=== PATIENT | female | born 1930 | race Caucasian/White ===

== ENCOUNTER 2016-11-03 11:16 | Inpatient (IN) | payer BC ==
[2016-11-03] MEDS ORDERED: ASPIRIN 81 MG CHEWABLE TABLETS PO ONE (11:22)
--- NOTE | 2016-11-03 11:22 | PDOC ---
History of Present Illness <Radhika Barton - Last Filed: 11/03/16 12:38> - General History Source: Patient Exam Limitations: No Limitations <Rossy Medley - Last Filed: 11/03/16 14:21> - General Stated Complaint: Shortness of Breath Time Seen by Provider: 11/03/16 11:21 - History of Present Illness Initial Comments: 11/03/16 12:28 The patient is a 86 year old female with significant past medical history of a- fib (on Xarelto), hypertension, hyperlipidemia, hypothyroidism, and pneumonia who presents to the emergency department from home with shortness of breath for the last 2 months. The patient states that her SOB has been gradually worsening over the last week. The patient has SOB when she gets out of bed. She reports intermittent hemoptysis with associated chills. The patient last saw her doctors in the fall but has scheduled appointments for next week. She states she has lost ~7lbs within the last month but she denies any decreased appetite. She denies any chest pain or palpitations. She denies any sick contacts but states she recently traveled to [place] to visit her children. The patient denies any recent illness or fevers. PMD: Dr. Wing Pulmonary: Dr. Crowell Cardiology: Dr. Werner (Radhika Barton) Past History <Radhika Barton - Last Filed: 11/03/16 12:38> - Past Medical History Anemia: No Asthma: No Cancer: No Cardiac Disorders: Yes (AFIB) CVA: No COPD: No (hx of pneumonia 10/2015) CHF: No Dementia: No Diabetes: No GI Disorders: No Disorders: No HTN: Yes Hypercholesterolemia: Yes Liver Disease: No Seizures: No Thyroid Disease: Yes (HYPO) - Surgical History Abdominal Surgery: No Appendectomy: No Cardiac Surgery: No Cholecystectomy: Yes Lung Surgery: No Neurologic Surgery: No Orthopedic Surgery: Yes (BUNIONECTOMY) - Psycho/Social/Smoking Cessation Hx Anxiety: No Suicidal Ideation: No Smoking Status: No Smoking History: Never smoked Have you smoked in the past 12 months: No Number of Cigarettes Smoked Daily: 0 Hx Alcohol Use: No Drug/Substance Use Hx: No Substance Use Type: None Hx Substance Use Treatment: No <Rossy Medley - Last Filed: 11/03/16 14:21> - Past Medical History Allergies/Adverse Reactions: Allergies Allergy/AdvReac Type Severity Reaction Status Date / Time No Known Allergies Allergy Verified 11/03/16 11:41 Home Medications: Ambulatory Orders Levothyroxine [Synthroid -] 50 mcg PO DAILY 12/02/14 Metoprolol Tartrate [Lopressor -] 25 mg PO BID 12/02/14 Rivaroxaban [Xarelto] 1 each PO DAILY 12/02/14 Prednisone 10 mg PO DAILY 04/08/16 Cardiac Specific PMH - Complaint Specific PMHX Pacemaker: No <Rossy Medley - Last Filed: 11/03/16 14:21> Review of Systems - Review of Systems Able to Perform ROS?: Yes <Radhika Barton - Last Filed: 11/03/16 12:38> <Rossy Medley - Last Filed: 11/03/16 14:21> - Review of Systems Comments:: 11/03/16 12:28 GENERAL/CONSTITUTIONAL: +Chills, +loss of appetite. No: fever, weakness. HEAD, EYES, EARS, NOSE AND THROAT: No: change in vision, ear pain, discharge, sore throat, throat swelling. CARDIOVASCULAR: No: chest pain, lightheadedness, palpitations, syncope RESPIRATORY: +SOB, +cough, +hemoptysis. No: wheezing, stridor. GASTROINTESTINAL: No: nausea, vomiting, abdominal cramping, diarrhea, rectal bleeding, constipation. GENITOURINARY: No: dysuria, hematuria, frequency, urgency, flank pain. MUSCULOSKELETAL: No: back pain, neck pain, joint pain, muscle swelling or pain SKIN AND BREASTS: No: lesions, pallor, rash or easy bruising. NEUROLOGIC: No: headache, vertigo, paresthesias, weakness ENDOCRINE: No: unexplained weight gain or loss HEMATOLOGIC/LYMPHATIC: No: anemia, easy bleeding, swelling nodes (Radhika Barton) *Physical Exam <Radhika Barton - Last Filed: 11/03/16 12:38> <Rossy Medley - Last Filed: 11/03/16 14:21> - Vital Signs Last Vital Signs Temp Pulse Resp BP Pulse Ox 100.4 F H 96 H 26 H 108/70 95 11/03/16 12:55 11/03/16 14:05 11/03/16 14:05 11/03/16 14:05 11/03/16 14:05 - Physical Exam Comments: 11/03/16 12:29 GENERAL: The patient is in no acute distress. HEAD: Normal with no signs of trauma. EYES: PERRLA, EOMI, sclera anicteric, conjunctiva clear. ENT: Ears normal, nares patent, oropharynx clear without exudates. Moist mucous membranes. NECK: Normal range of motion, supple without lymphadenopathy, JVD, or masses. LUNGS: +Coarse breath sounds with crackles in the bilateral bases. No wheezing. HEART: +Tachycardic and irregular, normal S1 and S2 without murmur, rub or gallop. ABDOMEN: Soft, nontender, normoactive bowel sounds. No guarding, no rebound. EXTREMITIES: Normal range of motion, no edema. No clubbing or cyanosis. No erythema, or tenderness. NEUROLOGICAL: Cranial nerves II through XII grossly intact. Normal speech. No focal neurological deficits. MUSCULOSKELETAL: Back non-tender to palpation, no CVA tenderness SKIN: Warm, Dry, normal turgor, no rashes or lesions noted. (Radhika Barton) Heart Score/ECG Review <Radhika Barton - Last Filed: 11/03/16 12:38> #1 ECG reviewed & interpreted by me at: 12:36 <Rossy Medley - Last Filed: 11/03/16 14:21> #1 11/03/16 12:36 Twelve-lead EKG was performed and reviewed by me. Afib rte of 122bpm. The axis is normal. The intervals are normal - QRS:82ms, QTc:433ms There are no ST elevations or depressions. T waves flattening/inversion II,III, aVF (Rossy Medley) ED Treatment Course - LABORATORY CBC & Chemistry Diagram: 11/03/16 12:09 11/03/16 12:09 <Radhika Barton - Last Filed: 11/03/16 12:38> - LABORATORY CBC & Chemistry Diagram: 11/03/16 12:09 11/03/16 12:09 <Rossy Medley - Last Filed: 11/03/16 14:21> - ADDITIONAL ORDERS Additional order review: Laboratory Results 11/03/16 11/03/16 11/03/16 13:30 12:09 12:09 INR Puncture Site ABG pH ABG pCO2 at Pt Temp ABG pO2 at Pt Temp ABG HCO3 ABG O2 Sat (Measured) ABG O2 Content ABG Base Excess Richy Test O2 Delivery Device Oxygen Flow Rate PEEP Sodium 135 L Potassium 4.0 Chloride 100 Carbon Dioxide 26 Anion Gap 9 BUN 16 Creatinine 0.9 D Creat Clearance w eGFR 59.51 Random Glucose 127 H Lactic Acid 1.272 Calcium 8.5 Magnesium 2.0 Total Bilirubin 0.8 D AST 21 ALT 20 D Alkaline Phosphatase 55 Creatine Kinase 39 Troponin I < 0.02 B-Natriuretic Peptide 1484.48 H Total Protein 6.4 Albumin 3.0 L 11/03/16 11/03/16 12:09 11:45 INR 1.57 H Puncture Site Right radial ABG pH 7.48 H ABG pCO2 at Pt Temp 30.9 L ABG pO2 at Pt Temp 69.7 ABG HCO3 22.8 ABG O2 Sat (Measured) 94.6 ABG O2 Content 19.6 ABG Base Excess 0.6 Richy Test Positive O2 Delivery Device N/c Oxygen Flow Rate 4 lpm PEEP 0.0 Sodium Potassium Chloride Carbon Dioxide Anion Gap BUN Creatinine Creat Clearance w eGFR Random Glucose Lactic Acid Calcium Magnesium Total Bilirubin AST ALT Alkaline Phosphatase Creatine Kinase Troponin I B-Natriuretic Peptide Total Protein Albumin 11/03/16 12:09 RBC 5.11 MCV 88.9 MCHC 33.1 RDW 16.0 H D MPV 7.8 Neutrophils % 79.2 D Lymphocytes % 11.7 D Monocytes % 7.7 Eosinophils % 1.0 Basophils % 0.4 - RADIOLOGY Radiology Studies Ordered: Category Date Time Status CHEST X-RAY PORTABLE* [RAD] Stat Radiology 11/03/16 11:23 Completed - Medications Given in the ED: ED Medications Discontinued Medications Generic Name Dose Route Start Last Admin Trade Name Freq PRN Reason Stop Dose Admin Albuterol/Ipratropium 1 amp 11/03/16 11:57 11/03/16 12:24 Duoneb - NEB 11/03/16 11:58 Not Given ONCE ONE Aspirin 162 mg 11/03/16 11:22 11/03/16 11:56 Asa - PO 11/03/16 11:23 162 mg ONCE ONE Administration Diltiazem HCl 10 mg 11/03/16 12:25 11/03/16 12:35 Cardizem Injection - IVPUSH 11/03/16 12:26 10 mg ONCE ONE Administration Azithromycin 500 mg/ Dextrose 250 mls @ 250 mls/hr 11/03/16 13:00 11/03/16 14: 03 IVPB 11/03/16 13:59 250 mls/hr ONCE ONE Administration Ceftriaxone Sodium 1 gm/ 50 mls @ 100 mls/hr 11/03/16 13:00 11/03/16 13:22 Dextrose IVPB 11/03/16 13:29 100 mls/hr ONCE ONE Administration Medical Decision Making <Radhika Barton - Last Filed: 11/03/16 12:38> <Rossy Medley - Last Filed: 11/03/16 14:21> - Medical Decision Making 11/03/16 11:21 A portion of this note was documented by scribe services under my direction. I have reviewed the details of the note, within reason, and agree with the documentation with the following case summary and management plan written by me. Nursing documentation reviewed and incorporated into medical decision making THis is a vincenzo 86-year-old female with a history of A. fib on Cyalta, hypertension who presents emergency department with a complaint of shortness of breath. Patient states her symptoms have been present for the past at least a year but have progressively worsened over the past few weeks. No associated fevers or chills. Patient states she has difficulty exerting herself and ambulating around her home. No chest pain Differential includes cardiac ischemia, pe, asthma exacerbation, pneumonia, pneumothorax, pleural effusion, costochondritis, pericarditis, GERD. 11/03/16 12:29 Laboratory Tests 11/03/16 11/03/16 11:45 12:09 WBC 11.9 H D Hgb 15.0 Hct 45.4 H Plt Count 229 Neutrophils % 79.2 D Lymphocytes % 11.7 D ABG pH 7.48 H ABG pCO2 at Pt Temp 30.9 L ABG pO2 at Pt Temp 69.7 ABG HCO3 22.8 11/03/16 13:31 Laboratory Tests 11/03/16 11/03/16 12:09 12:09 Sodium 135 L Potassium 4.0 Chloride 100 Carbon Dioxide 26 BUN 16 Creatinine 0.9 D Random Glucose 127 H Creatine Kinase 39 Troponin I < 0.02 B-Natriuretic Peptide 1484.48 H 11/03/16 14:13 CXR: increased markings, patchy infiltrates Will give IV abx PT admitted to Dr. Wing (Rossy Medley) *DC/Admit/Observation/Transfer <Radhika Barton - Last Filed: 11/03/16 12:38> - Discharge Dispostion Admit: Yes <Rossy Medley - Last Filed: 11/03/16 14:21> Diagnosis at time of Disposition: Hypoxia Fever Qualifiers: Fever type: unspecified Qualified Code(s): R50.9 - Fever, unspecified Pneumonia Qualifiers: Pneumonia type: due to unspecified organism Laterality: unspecified laterality Lung location: unspecified part of lung Qualified Code(s): J18.9 - Pneumonia, unspecified organism Atrial fibrillation Qualifiers: Atrial fibrillation type: chronic Qualified Code(s): I48.2 - Chronic atrial fibrillation - Discharge Dispostion Condition at time of disposition: Stable - Referrals Referrals: Curt Wing MD [Primary Care Provider] - - Attestations Scribe Attestion: 11/03/16 12:38 Documentation prepared by Radhika Barton, acting as medical director of hospice for Rossy Medley MD. (Radhika Barton)
[2016-11-03] MEDS ORDERED: ASPIRIN 81 MG CHEWABLE TABLETS ONE (11:55)
[2016-11-03] MEDS ORDERED: ALBUTEROL SO4 2.5/IPRATROPIUM 0.5 INH SOL 3 ML VIAL.NEB. NEB ONE ×2 (11:57→12:09)
[2016-11-03 12:01] LABS: ARTERIAL BLD GAS O2 SATURATION 94.6 % (90-98.9); ARTERIAL BLOOD GAS BASE EXCESS 0.6 meq/l (-2-2); ARTERIAL BLOOD GAS HCO3 22.8 meq/L (22-26); ARTERIAL BLOOD GAS pH 7.48 (7.35-7.45)
[2016-11-03 12:02] LABS: ALLENS TEST POSITIVE; ART PUNCT SITE RIGHT RADIAL; LPM/O2% 4 LPM; PT. ON O2? YES; TYPE OF O2 N/C
[2016-11-03 12:03] LABS: ARTERIAL BLOOD GAS PO2 69.7 mmHg (68-100)
[2016-11-03 12:24] LABS: BASOPHIL 0.4 % (0-2.0); MCH 29.4 pg (25.7-33.7); MCHC 33.1 g/dl (32.0-36.0); MEAN CELL VOLUME 88.9 fl (80-96); MEAN PLT VOLUME 7.8 fl (7.5-11.1); NEUTROPHILS 79.2 % (42.8-82.8); PLATELET COUNT 229 K/MM3 (134-434); WHITE BLOOD COUNT 11.9 K/mm3 (4.0-10.0)
[2016-11-03] MEDS ORDERED: dilTIAZem HCL 50 MG/10 ML - 10 ML VIAL IVPUSH ONE (12:25)
[2016-11-03] MEDS ORDERED: dilTIAZem HCL 125 MG/25 ML - 25 ML VIAL ONE (12:32)
[2016-11-03 12:41] LABS: INR 1.57 (0.82-1.09); PROTHROMBIN TIME (PATIENT) 17.4 SEC (9.98-11.88)
[2016-11-03] MEDS ORDERED: CEFTRIAXONE 1 GM in DEXTROSE 5%-WATER - 50 ML IVPB ONE (13:00)
[2016-11-03] MEDS ORDERED: AZITHROMYCIN IVPB 500 MG in DEXTROSE 5%-WATER - 250 ML IVPB ONE (13:00)
[2016-11-03 13:01] LABS: ANION GAP 9 (8-16); BILIRUBIN,TOTAL 0.8 mg/dL (0.2-1.0); CALCIUM 8.5 mg/dL (8.5-10.1); CO2 26 mmol/L (21-32); CREATININE 0.9 mg/dL (0.55-1.02); GLUCOSE,RANDOM 127 mg/dL (74-106); SGOT/AST 21 U/L (15-37); SGPT/ALT 20 U/L (12-78); TOT PROT 6.4 g/dl (6.4-8.2)
[2016-11-03 13:02] LABS: ALK PHOS 55 U/L (45-117); TROPONIN I < 0.02 ng/ml (0.00-0.05)
[2016-11-03] MEDS ORDERED: CEFTRIAXONE 50 ML ONE (13:13)
[2016-11-03] MEDS ORDERED: AZITHROMYCIN IVPB 250 ML IVPB ONE (13:13)
--- NOTE | 2016-11-03 13:50 | EKG ---
Test Reason : Blood Pressure : / mmHG Vent. Rate : 122 BPM Atrial Rate : 150 BPM P-R Int : 000 ms QRS Dur : 082 ms QT Int : 304 ms P-R-T Axes : 000 -10 -03 degrees QTc Int : 433 ms POOR DATA QUALITY, INTERPRETATION MAY BE ADVERSELY AFFECTED ATRIAL FIBRILLATION WITH RAPID VENTRICULAR RESPONSE MINIMAL VOLTAGE CRITERIA FOR LVH, MAY BE NORMAL VARIANT ABNORMAL ECG WHEN COMPARED WITH ECG OF 02-DEC-2014 11:10, NONSPECIFIC T WAVE ABNORMALITY NOW EVIDENT IN ANTERIOR LEADS Confirmed by CARMELLA LINN, DANIELA ([id number]) on 11/03/2016 1:50:03 PM Referred By: Confirmed By:DANIELA WEIR MD
--- NOTE | 2016-11-03 14:23 | PDOC ---
ED Treatment Course - LABORATORY CBC & Chemistry Diagram: 11/04/16 05:35 11/04/16 05:35 - ADDITIONAL ORDERS Additional order review: Laboratory Results 11/03/16 11/03/16 11/03/16 13:30 12:09 12:09 INR Puncture Site ABG pH ABG pCO2 at Pt Temp ABG pO2 at Pt Temp ABG HCO3 ABG O2 Sat (Measured) ABG O2 Content ABG Base Excess Richy Test O2 Delivery Device Oxygen Flow Rate PEEP Sodium 135 L Potassium 4.0 Chloride 100 Carbon Dioxide 26 Anion Gap 9 BUN 16 Creatinine 0.9 D Creat Clearance w eGFR 59.51 Random Glucose 127 H Lactic Acid 1.272 Calcium 8.5 Magnesium 2.0 Total Bilirubin 0.8 D AST 21 ALT 20 D Alkaline Phosphatase 55 Creatine Kinase 39 Troponin I < 0.02 B-Natriuretic Peptide 1484.48 H Total Protein 6.4 Albumin 3.0 L 11/03/16 11/03/16 12:09 11:45 INR 1.57 H Puncture Site Right radial ABG pH 7.48 H ABG pCO2 at Pt Temp 30.9 L ABG pO2 at Pt Temp 69.7 ABG HCO3 22.8 ABG O2 Sat (Measured) 94.6 ABG O2 Content 19.6 ABG Base Excess 0.6 Richy Test Positive O2 Delivery Device N/c Oxygen Flow Rate 4 lpm PEEP 0.0 Sodium Potassium Chloride Carbon Dioxide Anion Gap BUN Creatinine Creat Clearance w eGFR Random Glucose Lactic Acid Calcium Magnesium Total Bilirubin AST ALT Alkaline Phosphatase Creatine Kinase Troponin I B-Natriuretic Peptide Total Protein Albumin 11/03/16 12:09 RBC 5.11 MCV 88.9 MCHC 33.1 RDW 16.0 H D MPV 7.8 Neutrophils % 79.2 D Lymphocytes % 11.7 D Monocytes % 7.7 Eosinophils % 1.0 Basophils % 0.4 - RADIOLOGY Radiology Studies Ordered: Category Date Time Status CHEST X-RAY PORTABLE* [RAD] Stat Radiology 11/03/16 11:23 Completed - Medications Given in the ED: ED Medications Discontinued Medications Generic Name Dose Route Start Last Admin Trade Name Freq PRN Reason Stop Dose Admin Albuterol/Ipratropium 1 amp 11/03/16 11:57 11/03/16 12:24 Duoneb - NEB 11/03/16 11:58 Not Given ONCE ONE Aspirin 162 mg 11/03/16 11:22 11/03/16 11:56 Asa - PO 11/03/16 11:23 162 mg ONCE ONE Administration Diltiazem HCl 10 mg 11/03/16 12:25 11/03/16 12:35 Cardizem Injection - IVPUSH 11/03/16 12:26 10 mg ONCE ONE Administration Azithromycin 500 mg/ Dextrose 250 mls @ 250 mls/hr 11/03/16 13:00 11/03/16 14: 03 IVPB 11/03/16 13:59 250 mls/hr ONCE ONE Administration Ceftriaxone Sodium 1 gm/ 50 mls @ 100 mls/hr 11/03/16 13:00 11/03/16 13:22 Dextrose IVPB 11/03/16 13:29 100 mls/hr ONCE ONE Administration Medical Decision Making - Medical Decision Making 11/03/16 14:23 Will admit to [facility] given Rapid Afib *DC/Admit/Observation/Transfer Diagnosis at time of Disposition: Hypoxia Fever Qualifiers: Fever type: unspecified Qualified Code(s): R50.9 - Fever, unspecified Pneumonia Qualifiers: Pneumonia type: due to unspecified organism Laterality: unspecified laterality Lung location: unspecified part of lung Qualified Code(s): J18.9 - Pneumonia, unspecified organism Afib Qualifiers: Atrial fibrillation type: chronic Qualified Code(s): I48.2 - Chronic atrial fibrillation - Discharge Dispostion Condition at time of disposition: Stable Admit: Yes Decision to Admit order Date/Time: Decision to Admit Order Category Date Time Status Decision to Admit to Hospital Routine Admission 11/03/16 14:21 Active - Referrals - Patient Instructions - Post Discharge Activity
[2016-11-03 15:21] VITALS: BMI 24.4
[2016-11-03] MEDS ORDERED: ACETAMINOPHEN 325 MG TABLET (FP) PO PRN (15:37)
[2016-11-03] MEDS: methylPREDNISolone NA SUCC 40 MG/1 ML VIAL IVPB SCH ×2 (17:49→20:50)
[2016-11-03] MEDS: ALBUTEROL SO4 2.5/IPRATROPIUM 0.5 INH SOL 3 ML VIAL.NEB. NEB SCH (18:23)
[2016-11-03] MEDS: METOPROLOL TARTRATE 25 MG TABLET (FP) PO SCH (21:33)
[2016-11-04] MEDS: ALBUTEROL SO4 2.5/IPRATROPIUM 0.5 INH SOL 3 ML VIAL.NEB. NEB SCH ×5 (00:01→23:20)
[2016-11-04] MEDS: methylPREDNISolone NA SUCC 40 MG/1 ML VIAL IVPB SCH ×4 (02:31→20:43)
[2016-11-04] MEDS: LEVOTHYROXINE NA 50 MCG TABLET (FP) PO SCH (06:05)
[2016-11-04 07:21] LABS: BASOPHIL 0.1 % (0-2.0); EOSINOPHIL 0.1 % (0-4.5); MCH 29.7 pg (25.7-33.7); MCHC 32.7 g/dl (32.0-36.0); MEAN CELL VOLUME 90.6 fl (80-96); MEAN PLT VOLUME 7.8 fl (7.5-11.1); NEUTROPHILS 87.5 % (42.8-82.8); PLATELET COUNT 211 K/MM3 (134-434); RDW 15.8 % (11.6-15.6); WHITE BLOOD COUNT 8.7 K/mm3 (4.0-10.0)
[2016-11-04 07:41] LABS: ALBUMIN 2.6 g/dl (3.4-5.0); ANION GAP 8 (8-16); BILIRUBIN,TOTAL 0.6 mg/dL (0.2-1.0); CO2 27 mmol/L (21-32); CREATININE 0.8 mg/dL (0.55-1.02); GLUCOSE,RANDOM 134 mg/dL (74-106); SGOT/AST 21 U/L (15-37); SGPT/ALT 17 U/L (12-78); TOT PROT 5.8 g/dl (6.4-8.2)
[2016-11-04 07:44] LABS: ALK PHOS 52 U/L (45-117); TROPONIN I < 0.02 ng/ml (0.00-0.05)
[2016-11-04] MEDS ORDERED: DIGOXIN 0.5 MG/2 ML AMPUL IVPUSH ONE (08:15)
[2016-11-04] MEDS ORDERED: FUROSEMIDE 40 MG/4 ML INJECTABLE VIAL IVPUSH ONE (08:19)
--- NOTE | 2016-11-04 08:22 | HP ---
Admitting History and Physical - Admission History of Present Illness: 86 year old female with significant past medical history of a-fib (on Xarelto) , hypertension, hyperlipidemia, hypothyroidism, and pneumonia who presents to the emergency department from home with shortness of breath for the last 2 months. The patient states that her SOB has been gradually worsening over the last week. The patient has SOB when she gets out of bed. She reports intermittent hemoptysis with associated chills. The patient last saw her doctors in the fall but has scheduled appointments for next week. She states she has lost ~7lbs within the last month but she denies any decreased appetite. She denies any chest pain or palpitations. She denies any sick contacts but states she recently traveled to [place] to visit her children. The patient denies any recent illness or fevers. - Past Medical History Cardiovascular: Yes: HTN, Hyperlipdemia Pulmonary: Yes: COPD, Pulmonary Fibrosis Hepatobiliary: Yes: Cholelithiasis Endocrine: Yes: Hypothyroidism - Past Surgical History Past Surgical History: Yes: Cholecystectomy - Smoking History Smoking history: Never smoked Have you smoked in the past 12 months: No Aproximately how many cigarettes per day: 0 - Alcohol/Substance Use Hx Alcohol Use: No Home Medications - Allergies Allergies/Adverse Reactions: Allergies Allergy/AdvReac Type Severity Reaction Status Date / Time No Known Allergies Allergy Verified 11/03/16 11:41 - Home Medications Home Medications: Ambulatory Orders Levothyroxine [Synthroid -] 50 mcg PO DAILY 12/02/14 Metoprolol Tartrate [Lopressor -] 25 mg PO BID 12/02/14 Rivaroxaban [Xarelto] 1 each PO DAILY 12/02/14 Prednisone 10 mg PO DAILY 04/08/16 Review of Systems - Review of Systems Cardiovascular: reports: Shortness of Breath. denies: Chest Pain Respiratory: reports: Cough, SOB on Exertion Gastrointestinal: denies: Abdominal Pain Neurological: reports: Weakness Physical Examination Vital Signs: Vital Signs Temperature 97.7 F 11/04/16 06:00 Pulse Rate 100 H 11/04/16 06:00 Respiratory Rate 20 11/04/16 06:00 Blood Pressure 95/58 11/04/16 06:00 O2 Sat by Pulse Oximetry (%) 94 L 11/03/16 21:00 Cardiovascular: Yes: Tachycardia, Pulse Irregular, S1, S2 Respiratory: Yes: On Nasal O2, Rales, Wheezes Gastrointestinal: Yes: Normal Bowel Sounds, Soft Edema: No Labs: CBC, BMP 11/04/16 05:35 11/04/16 05:35 Imaging - Results X-ray: Report Reviewed Problem List - Problems (1) Hypoxia Code(s): R09.02 - HYPOXEMIA (2) Pneumonia Code(s): J18.9 - PNEUMONIA, UNSPECIFIED ORGANISM Qualifiers: Pneumonia type: due to unspecified organism Laterality: unspecified laterality Lung location: unspecified part of lung Qualified Code(s): J18.9 - Pneumonia, unspecified organism (3) Rapid atrial fibrillation Assessment/Plan: ON LOPRESSOR--WILL D/W PULM AND CARDIO ADD DIG --[place] LOW XARELTO Code(s): I48.91 - UNSPECIFIED ATRIAL FIBRILLATION (4) CHF (congestive heart failure) Assessment/Plan: ECHO LASIX 20 X 1 Code(s): I50.9 - HEART FAILURE, UNSPECIFIED (5) COPD (chronic obstructive pulmonary disease) Assessment/Plan: SOLUMEDROL NEBS PULM Code(s): J44.9 - CHRONIC OBSTRUCTIVE PULMONARY DISEASE, UNSPECIFIED
[2016-11-04] MEDS ORDERED: RIVAROXABAN PO SCH (10:00)
[2016-11-04] MEDS ORDERED: CEFTRIAXONE 50 ML IVPB SCH (10:00)
--- NOTE | 2016-11-04 10:21 | PN ---
Progress Note, Physician Chief Complaint: ID This nice 86 year old female with known pulmonary fibrosis brought with worsening SOB and chills for 2 days Generalized weakness.Tmax 100.4 - Current Medication List Current Medications: Active Medications Acetaminophen (Tylenol -) 650 mg PO Q4H PRN PRN Reason: FEVER OR PAIN Albuterol/Ipratropium (Duoneb -) 1 amp NEB QIDR [facility] Last Admin: 11/04/16 07:04 Dose: 1 amp Digoxin (Lanoxin -) 0.25 mg PO DAILY [facility] Ceftriaxone Sodium (Rocephin 1gm Ivpb (Pre-Docked)) 50 mls @ 100 mls/hr IVPB DAILY [facility] Levothyroxine Sodium (Synthroid -) 50 mcg PO DAILY@0700 [facility] Last Admin: 11/04/16 06:05 Dose: 50 mcg Methylprednisolone Sodium Succinate (Solu-Medrol -) 40 mg IVPB Q6H-IV [facility] Last Admin: 11/04/16 02:31 Dose: 40 mg Metoprolol Tartrate (Lopressor -) 25 mg PO BID [facility] Last Admin: 11/03/16 21:33 Dose: 25 mg Rivaroxaban (Xarelto -) 20 mg PO DAILY [facility] - Objective Vital Signs: Vital Signs Temperature 97.7 F 11/04/16 06:00 Pulse Rate 100 H 11/04/16 06:00 Respiratory Rate 20 11/04/16 06:00 Blood Pressure 95/58 11/04/16 06:00 O2 Sat by Pulse Oximetry (%) 94 L 11/03/16 21:00 Labs: CBC, BMP 11/04/16 05:35 11/04/16 05:35 INR, PTT INR 1.57 (0.82-1.09) H 11/03/16 12:09 Problem List - Problems (1) Pulmonary fibrosis Code(s): J84.10 - PULMONARY FIBROSIS, UNSPECIFIED (2) Pneumonia due to infectious organism Code(s): J18.9 - PNEUMONIA, UNSPECIFIED ORGANISM Assessment/Plan Microbiology Laboratory Tests 11/03/16 11/03/16 11/04/16 12:09 19:00 05:35 WBC 11.9 H D Hgb 15.0 Hct 45.4 H Plt Count 229 BUN 15 Creatinine 0.8 Lactic Acid 2.371 H* Assessment Pulmonary Fibrosis with complicating illness "on top" of this possible PNA bacterial viral Plan Blood cultures LGA INfluenza screening Levofloxacin 500mg daily Luna LINN
[2016-11-04] MEDS ORDERED: FUROSEMIDE 40 MG/4 ML INJECTABLE VIAL ONE (10:31)
[2016-11-04] MEDS ORDERED: DIGOXIN 0.5 MG/2 ML AMPUL ONE (10:31)
[2016-11-04] MEDS ORDERED: PT OWN MED DRAWER 7, Y5N ONE (10:55)
[2016-11-04] MEDS ORDERED: CEFTRIAXONE 50 ML ONE (10:56)
[2016-11-04] MEDS: METOPROLOL TARTRATE 25 MG TABLET (FP) PO SCH ×2 (10:59→21:07)
[2016-11-04] MEDS: RIVAROXABAN 20 MG TABLET PO SCH (10:59)
[2016-11-04 11:04] LABS: C-REACTIVE PROTEIN 7.3 MG/DL (0.00-0.3)
[2016-11-04] MEDS ORDERED: LEVOFLOXACIN 500 MG IVPB 100 ML IVPB SCH (11:15)
--- NOTE | 2016-11-04 13:03 | CONS ---
DATE OF CONSULTATION: DATE OF DICTATION: 11/04/2016 HISTORY OF PRESENT ILLNESS: This is an 81-year-old female with a history of COPD and pulmonary fibrosis, admitted with the chief complaint of worsening shortness of breath and cough associated with chills and generalized body weakness over the last 2-3 days. She notes, speaking generally, that her shortness of breath has been progressive over the last several years. She does not smoke, nor did she ever smoke. Here, her highest temperature was noted to be 100.2. She did note receiving influenza vaccine previously, but has not been flu screened as of this dictation. She was given a dose of ceftriaxone and azithromycin and I am asked to see her for further evaluation. She lives at home with her and has no history of recent travel, unusual hobbies, or exposure. PAST MEDICAL HISTORY: Includes hypertension, atrial fibrillation, pulmonary fibrosis, COPD, hypothyroidism, cholelithiasis. MEDICATIONS: Include: 1. Eliquis. 2. Xarelto. 3. DuoNeb. 4. Lopressor. 5. Lanoxin. 6. Synthroid. ALLERGIES: None known. SOCIAL HISTORY: Never smoked. No history of alcohol use. FAMILY HISTORY: Reviewed and noncontributory. REVIEW OF SYSTEMS: Respiratory: Shortness of breath with cough. No hemoptysis. Cardiac: History of atrial fibrillation, no chest pain, palpitations, syncope. Gastrointestinal: No weight loss, abdominal pain, vomiting, diarrhea. Genitourinary: No dysuria, hematuria, urinary frequency. PHYSICAL EXAMINATION: General: She was an alert female in no acute distress. Vitals: The temperature was 97.7, pulse 100, , respiratory rate 20, O2 saturation 94% on 4 L nasal cannula. Neck: The neck was supple without adenopathy. Lungs: Positive rales. Heart: S1, S2 irregularly irregular. Abdomen: Soft, nontender, without organomegaly. Extremities: Without clubbing, cyanosis, or edema. The white count is 11.9, hemoglobin 15, platelets of 229. INR 1.57. AB.48, 30, 69 on 4 L nasal cannula. BUN 15, creatinine 0.8, lactic acid 2.3. Liver enzymes normal. Chest x-ray was reviewed and shows increased interstitial and alveolar changes. Possibility of a new infiltrate of the right side noted per Radiology. ASSESSMENT: An 86-year-old female with history of pulmonary fibrosis, atrial fibrillation, presents with worsening shortness of breath, cough, chills and generalized body aches. Possibility of superimposed pneumonia on her interstitial pulmonary fibrosis. Advice blood cultures, sputum culture, Legionella urinary antigen, influenza screening, empiric therapy with levofloxacin 500 mg q.24 hours. SEMAJ VAN M.D. 1 [id number]
--- NOTE | 2016-11-04 13:47 | CON.PULM ---
Consult Consult Specialty:: PULM/CCM Referred by:: CHINO Reason for Consultation:: SOB - History of Present Illness Chief Complaint: SOB / cough History of Present Illness: 86 F, with listed medical history. 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 Admitted via the ER due to increasing cough and SOB. Symptoms seem to be over a few months, with an acute worsening over the past several days. Increased sputum that is occasionally blood tinged. Was in [place] for a month but no sick contacts. Poor oral intake over the past few weeks. - History Source History Provided By: Patient Limitations to Obtaining History: No Limitations - Past Medical History Cardio/Vascular: Yes: HTN, Hyperlipdemia Pulmonary: Yes: COPD, Pulmonary Fibrosis Hepatobiliary: Yes: Cholelithiasis Endocrine: Yes: Hypothyroidism - Past Surgical History Past Surgical History: Yes: Cholecystectomy - Alcohol/Substance Use Hx Alcohol Use: No - Smoking History Smoking history: Never smoked Have you smoked in the past 12 months: No Aproximately how many cigarettes per day: 0 Home Medications - Allergies Allergies/Adverse Reactions: Allergies Allergy/AdvReac Type Severity Reaction Status Date / Time No Known Allergies Allergy Verified 11/03/16 11:41 - Home Medications Home Medications: Ambulatory Orders Levothyroxine [Synthroid -] 50 mcg PO DAILY 12/02/14 Metoprolol Tartrate [Lopressor -] 25 mg PO BID 12/02/14 Rivaroxaban [Xarelto] 1 each PO DAILY 12/02/14 Prednisone 10 mg PO DAILY 04/08/16 Review of Systems - Review of Systems Constitutional: reports: Loss of Appetite, Malaise, Unintentional Wgt. Loss, Weakness. denies: Chills, Fever, Night Sweats Eyes: reports: No Symptoms HENT: reports: No Symptoms Neck: reports: No Symptoms Cardiovascular: reports: Shortness of Breath. denies: Chest Pain, Edema, Palpitations Respiratory: reports: Cough, Hemoptysis, SOB, SOB on Exertion, Wheezing Gastrointestinal: reports: No Symptoms Genitourinary: reports: No Symptoms Breasts: reports: No Symptoms Reported Musculoskeletal: reports: No Symptoms Integumentary: reports: No Symptoms Neurological: reports: No Symptoms Endocrine: reports: No Symptoms Hematology/Lymphatic: reports: No Symptoms Psychiatric: reports: No Symptoms Physical Exam Vital Sings: Vital Signs Temperature 97.7 F 11/04/16 06:00 Pulse Rate 100 H 11/04/16 06:00 Respiratory Rate 20 11/04/16 06:00 Blood Pressure 95/58 11/04/16 06:00 O2 Sat by Pulse Oximetry (%) 94 L 11/03/16 21:00 Constitutional: Yes: No Distress, Calm Eyes: Yes: Conjunctiva Clear, EOM Intact HENT: Yes: Atraumatic, Normocephalic Neck: Yes: Supple, Trachea Midline Cardiovascular: Yes: Pulse Irregular Respiratory: Yes: Cough, Diminished, On Nasal O2, Rhonchi, Tachypnea, Other ( crackles). No: Accessory Muscle Use, Stridor, Wheezes ...Inspection: Yes: WNL ...Clubbing: No Gastrointestinal: Yes: Normal Bowel Sounds, Soft Musculoskeletal: Yes: WNL Extremities: Yes: WNL Edema: No Peripheral Pulses WNL: Yes Integumentary: Yes: WNL Neurological: Yes: WNL, Alert, Oriented ...Motor Strength: WNL Psychiatric: Yes: WNL, Alert, Oriented Labs: CBC, BMP 11/04/16 05:35 11/04/16 05:35 ABG Results ABG pH 7.48 (7.35-7.45) H 11/03/16 11:45 ABG pCO2 at Pt Temp 30.9 mmHg (35-45) L 11/03/16 11:45 ABG pO2 at Pt Temp 69.7 mmHg (68-100) 11/03/16 11:45 ABG HCO3 22.8 meq/L (22-26) 11/03/16 11:45 ABG O2 Sat (Measured) 94.6 % (90-98.9) 11/03/16 11:45 ABG O2 Content 19.6 % vol (15-22) 11/03/16 11:45 ABG Base Excess 0.6 meq/l (-2-2) 11/03/16 11:45 Imaging - Results Chest X-ray: Report Reviewed, Image Reviewed Cat Scan: Report Reviewed, Image Reviewed Problem List - Problems (1) Afib Code(s): I48.91 - UNSPECIFIED ATRIAL FIBRILLATION Qualifiers: Atrial fibrillation type: chronic Qualified Code(s): I48.2 - Chronic atrial fibrillation (2) CHF (congestive heart failure) Code(s): I50.9 - HEART FAILURE, UNSPECIFIED (3) COPD (chronic obstructive pulmonary disease) Code(s): J44.9 - CHRONIC OBSTRUCTIVE PULMONARY DISEASE, UNSPECIFIED (4) Hypoxia Code(s): R09.02 - HYPOXEMIA (5) Pneumonia Code(s): J18.9 - PNEUMONIA, UNSPECIFIED ORGANISM Qualifiers: Pneumonia type: due to unspecified organism Laterality: unspecified laterality Lung location: unspecified part of lung Qualified Code(s): J18.9 - Pneumonia, unspecified organism (6) Pulmonary fibrosis Code(s): J84.10 - PULMONARY FIBROSIS, UNSPECIFIED (7) HLD (hyperlipidemia) Code(s): E78.5 - HYPERLIPIDEMIA, UNSPECIFIED (8) HTN (hypertension) Code(s): I10 - ESSENTIAL (PRIMARY) HYPERTENSION (9) Hypothyroid Code(s): E03.9 - HYPOTHYROIDISM, UNSPECIFIED (10) Shortness of breath Code(s): R06.02 - SHORTNESS OF BREATH (11) Tachycardia Code(s): R00.0 - TACHYCARDIA, UNSPECIFIED Assessment/Plan ABX Per ID Check sputum Check urine antigen BD TX Medrol O2 as needed Will follow Thank you. Dr Kitchen
--- NOTE | 2016-11-04 14:19 | CON.CARD ---
Consult Consult Specialty:: Cardiology Referred by:: Curt Wing Reason for Consultation:: Afib - History of Present Illness Chief Complaint: Dyspnea, cough, chills History of Present Illness: 86 F, ILD of unknown etiology on home O2 for about 1 year, HTN, chol, hypothyroidism, persistent afib on Xarelto admitted via the ER due to increasing cough, chills, generalized weakness and SOB. Symptoms seem to be over a few months, with an acute worsening over the past several days. Tm 100.4. She denies chest pain, palpitations, near or true syncope, orthopnea, PND or LE edema. - History Source History Provided By: Patient Limitations to Obtaining History: No Limitations - Past Medical History Cardio/Vascular: Yes: HTN, Hyperlipdemia Pulmonary: Yes: COPD, Pulmonary Fibrosis Hepatobiliary: Yes: Cholelithiasis Endocrine: Yes: Hypothyroidism - Past Surgical History Past Surgical History: Yes: Cholecystectomy - Alcohol/Substance Use Hx Alcohol Use: No - Smoking History Smoking history: Never smoked Have you smoked in the past 12 months: No Aproximately how many cigarettes per day: 0 Home Medications - Allergies Allergies/Adverse Reactions: Allergies Allergy/AdvReac Type Severity Reaction Status Date / Time No Known Allergies Allergy Verified 11/03/16 11:41 - Home Medications Home Medications: Ambulatory Orders Levothyroxine [Synthroid -] 50 mcg PO DAILY 12/02/14 Metoprolol Tartrate [Lopressor -] 25 mg PO BID 12/02/14 Rivaroxaban [Xarelto] 1 each PO DAILY 12/02/14 Prednisone 10 mg PO DAILY 04/08/16 Review of Systems - Review of Systems Constitutional: reports: Chills Respiratory: reports: Cough, Exercise Intolerance, SOB, SOB on Exertion Vital Signs: Vital Signs Temperature 97.7 F 11/04/16 06:00 Pulse Rate 100 H 11/04/16 06:00 Respiratory Rate 20 11/04/16 06:00 Blood Pressure 95/58 11/04/16 06:00 O2 Sat by Pulse Oximetry (%) 94 L 11/03/16 21:00 Constitutional: Yes: No Distress, Calm Neck: Yes: Supple Respiratory: Yes: Regular, Diminished, On Nasal O2 Gastrointestinal: Yes: Normal Bowel Sounds, Soft Cardiovascular: Yes: Tachycardia, Pulse Irregular JVD: No Carotid Bruit: No Heart Sounds: Yes: S1, S2 Edema: No - Other Data Labs, Other Data: CBC, BMP 11/04/16 05:35 11/04/16 05:35 INR, PTT INR 1.57 (0.82-1.09) H 11/03/16 12:09 Troponin, BNP 11/04/16 05:35 Troponin I < 0.02 Troponin, BNP 11/04/16 05:35 Troponin I < 0.02 Afib @ 122 min criteria [facility] Imaging - Results Cat Scan: Report Reviewed (Progressive ILD and ground glass opacities) Problem List - Problems (1) Afib Code(s): I48.91 - UNSPECIFIED ATRIAL FIBRILLATION Qualifiers: Atrial fibrillation type: chronic Qualified Code(s): I48.2 - Chronic atrial fibrillation (2) Hypoxia Code(s): R09.02 - HYPOXEMIA (3) Pneumonia Code(s): J18.9 - PNEUMONIA, UNSPECIFIED ORGANISM Qualifiers: Pneumonia type: due to unspecified organism Laterality: unspecified laterality Lung location: unspecified part of lung Qualified Code(s): J18.9 - Pneumonia, unspecified organism (4) Pulmonary fibrosis Code(s): J84.10 - PULMONARY FIBROSIS, UNSPECIFIED (5) HLD (hyperlipidemia) Code(s): E78.5 - HYPERLIPIDEMIA, UNSPECIFIED Qualifiers: Hyperlipidemia type: pure hypercholesterolemia Qualified Code(s): E78.0 - Pure hypercholesterolemia (6) HTN (hypertension) Code(s): I10 - ESSENTIAL (PRIMARY) HYPERTENSION Qualifiers: Hypertension type: essential hypertension Qualified Code(s): I10 - Essential (primary) hypertension (7) Hypothyroid Code(s): E03.9 - HYPOTHYROIDISM, UNSPECIFIED (8) Rapid atrial fibrillation Code(s): I48.91 - UNSPECIFIED ATRIAL FIBRILLATION (9) Shortness of breath Code(s): R06.02 - SHORTNESS OF BREATH Assessment/Plan 11/03/2016 Echo: Normal biventricular size and fxn, mild LAE, mild MT, TR, RVSP 30-40 mmHg 1. IPF, possible PNA 2. Atrial fibrillation with rapid ventricular response, ([id number]) on NOAC 2. HTN 3. Hypercholesterolemia 4. Hypothyroidism PLAN: 1. Abx course per ID, BD, steroids, O2 to maintain saO2 2. F/u blood cx, LGA, Flu screen 3. Continue Lopressor 25 bid, Xarelto 20 qPM 4. Thank you for consultative opportunity
[2016-11-04] MEDS ORDERED: diphenhydrAMINE HCL 25 MG CAPSULE (FP) PO STA (20:40)
[2016-11-05] MEDS: methylPREDNISolone NA SUCC 40 MG/1 ML VIAL IVPB SCH ×3 (02:05→17:21)
[2016-11-05] MEDS: LEVOTHYROXINE NA 50 MCG TABLET (FP) PO SCH (06:04)
[2016-11-05] MEDS: ALBUTEROL SO4 2.5/IPRATROPIUM 0.5 INH SOL 3 ML VIAL.NEB. NEB SCH ×4 (06:20→23:19)
--- NOTE | 2016-11-05 08:15 | PN ---
Progress Note, Physician History of Present Illness: BETTER THIS AM - Current Medication List Current Medications: Active Medications Acetaminophen (Tylenol -) 650 mg PO Q4H PRN PRN Reason: FEVER OR PAIN Albuterol/Ipratropium (Duoneb -) 1 amp NEB QIDR [facility] Last Admin: 11/05/16 06:20 Dose: 1 amp Digoxin (Lanoxin -) 0.25 mg PO DAILY [facility] Levofloxacin (Levaquin 500 Mg Premixed Ivpb -) 100 mls @ 100 mls/hr IVPB DAILY [facility] Last Admin: 11/04/16 16:10 Dose: 100 mls/hr Levothyroxine Sodium (Synthroid -) 50 mcg PO DAILY@0700 [facility] Last Admin: 11/05/16 06:04 Dose: 50 mcg Methylprednisolone Sodium Succinate (Solu-Medrol -) 40 mg IVPB Q6H-IV [facility] Last Admin: 11/05/16 02:05 Dose: 40 mg Metoprolol Tartrate (Lopressor -) 25 mg PO BID [facility] Last Admin: 11/04/16 21:07 Dose: 25 mg Rivaroxaban (Xarelto -) 20 mg PO DAILY [facility] Last Admin: 11/04/16 10:59 Dose: 20 mg - Objective Vital Signs: Vital Signs Temperature 97.2 F L 11/05/16 06:00 Pulse Rate 18 L 11/05/16 06:00 Respiratory Rate 109 H 11/05/16 06:00 Blood Pressure 107/71 11/05/16 06:00 O2 Sat by Pulse Oximetry (%) 95 11/04/16 20:00 Cardiovascular: Yes: Regular Rate and Rhythm Respiratory: Yes: Regular, CTA Bilaterally Gastrointestinal: Yes: Normal Bowel Sounds, Soft Labs: CBC, BMP 11/04/16 05:35 11/04/16 05:35 INR, PTT INR 1.57 (0.82-1.09) H 11/03/16 12:09 Problem List - Problems (1) Hypoxia Assessment/Plan: STEROIDS O2 NEBS Code(s): R09.02 - HYPOXEMIA (2) Pneumonia Assessment/Plan: ABX Code(s): J18.9 - PNEUMONIA, UNSPECIFIED ORGANISM Qualifiers: Pneumonia type: due to unspecified organism Laterality: unspecified laterality Lung location: unspecified part of lung Qualified Code(s): J18.9 - Pneumonia, unspecified organism (3) Rapid atrial fibrillation Assessment/Plan: ON LOPRESSOR--WILL D/W PULM AND CARDIO ADD DIG --[place] LOW XARELTO Code(s): I48.91 - UNSPECIFIED ATRIAL FIBRILLATION (4) CHF (congestive heart failure) Assessment/Plan: ECHO LASIX 20 X 1 Code(s): I50.9 - HEART FAILURE, UNSPECIFIED (5) COPD (chronic obstructive pulmonary disease) Assessment/Plan: SOLUMEDROL NEBS PULM Code(s): J44.9 - CHRONIC OBSTRUCTIVE PULMONARY DISEASE, UNSPECIFIED
[2016-11-05] MEDS ORDERED: PT OWN MED DRAWER 7, Y5N ONE (09:22)
[2016-11-05] MEDS: RIVAROXABAN 20 MG TABLET PO SCH (09:34)
[2016-11-05] MEDS: METOPROLOL TARTRATE 25 MG TABLET (FP) PO SCH ×3 (09:34→21:09)
[2016-11-05] MEDS ORDERED: DIGOXIN 0.25 MG TABLET (FP) PO SCH (10:00)
[2016-11-05] MEDS ORDERED: FUROSEMIDE 40 MG/4 ML INJECTABLE VIAL IVPB SCH (11:00)
[2016-11-05] MEDS ORDERED: CEFTRIAXONE 50 ML IVPB SCH (11:00)
--- NOTE | 2016-11-05 12:36 | PN ---
Progress Note (short form) - Note Progress Note: PULMONARY MODERATE SUBJECTIVE IMPROVEMENT OOB TO CHAIR/EATING LUNCH VSS/TACHY EARLIER UPON WALKING TO BATHROOM ANICTERIC SCATTERED CRACKLES BILATERALLY S1S2 IRREG INCR VR BS+ SOFT DIMINISHED LOWER EXT EDEMA LABS/MEDS/NOTES/IMAGING/MICRO REVIEWED (1) Afib Code(s): I48.91 - UNSPECIFIED ATRIAL FIBRILLATION Qualifiers: Atrial fibrillation type: chronic Qualified Code(s): I48.2 - Chronic atrial fibrillation (2) CHF (congestive heart failure) Code(s): I50.9 - HEART FAILURE, UNSPECIFIED (3) COPD (chronic obstructive pulmonary disease) Code(s): J44.9 - CHRONIC OBSTRUCTIVE PULMONARY DISEASE, UNSPECIFIED (4) Hypoxia Code(s): R09.02 - HYPOXEMIA (5) Pneumonia Code(s): J18.9 - PNEUMONIA, UNSPECIFIED ORGANISM Qualifiers: Pneumonia type: due to unspecified organism Laterality: unspecified laterality Lung location: unspecified part of lung Qualified Code(s): J18.9 - Pneumonia, unspecified organism (6) Pulmonary fibrosis Code(s): J84.10 - PULMONARY FIBROSIS, UNSPECIFIED (7) HLD (hyperlipidemia) Code(s): E78.5 - HYPERLIPIDEMIA, UNSPECIFIED (8) HTN (hypertension) Code(s): I10 - ESSENTIAL (PRIMARY) HYPERTENSION (9) Hypothyroid Code(s): E03.9 - HYPOTHYROIDISM, UNSPECIFIED (10) Shortness of breath Code(s): R06.02 - SHORTNESS OF BREATH (11) Tachycardia Code(s): R00.0 - TACHYCARDIA, UNSPECIFIED Assessment/Plan ABX Per ID/continue diuretics/bronchodilators sputum - thus far for influ Check urine antigen pending Medrol as ordered O2 as needed Will follow Lupis ANN MD
[2016-11-05] MEDS ORDERED: DIGOXIN 0.125 MG TABLET (FP) PO SCH (13:15)
--- NOTE | 2016-11-05 13:27 | PN ---
Progress Note, Physician Chief Complaint: ID Marked clinical improvement Ceftriaxone continues day3 antibiotics NO fever Steroids - Current Medication List Current Medications: Active Medications Acetaminophen (Tylenol -) 650 mg PO Q4H PRN PRN Reason: FEVER OR PAIN Albuterol/Ipratropium (Duoneb -) 1 amp NEB QIDR [facility] Last Admin: 11/05/16 11:10 Dose: 1 amp Digoxin (Lanoxin -) 0.125 mg PO Q2D [facility] Furosemide (Lasix Injection -) 40 mg IVPB DAILY [facility] Last Admin: 11/05/16 12:17 Dose: 40 mg Ceftriaxone Sodium (Rocephin 1gm Ivpb (Pre-Docked)) 50 mls @ 100 mls/hr IVPB DAILY [facility] Last Admin: 11/05/16 12:18 Dose: 100 mls/hr Levothyroxine Sodium (Synthroid -) 50 mcg PO DAILY@0700 [facility] Last Admin: 11/05/16 06:04 Dose: 50 mcg Methylprednisolone Sodium Succinate (Solu-Medrol -) 40 mg IVPB Q8H-IV [facility] Metoprolol Tartrate (Lopressor -) 25 mg PO BID [facility] Last Admin: 11/05/16 09:34 Dose: 25 mg Rivaroxaban (Xarelto -) 20 mg PO DAILY [facility] Last Admin: 11/05/16 09:34 Dose: 20 mg - Objective Vital Signs: Vital Signs Temperature 97.8 F 11/05/16 10:00 Pulse Rate 117 H 11/05/16 10:00 Respiratory Rate 22 11/05/16 10:00 Blood Pressure 112/72 11/05/16 10:00 O2 Sat by Pulse Oximetry (%) 96 11/05/16 09:00 Constitutional: Yes: No Distress Neck: Yes: WNL, Supple Cardiovascular: Yes: S1, S2 Respiratory: Yes: WNL, Regular, CTA Bilaterally, Rales Gastrointestinal: Yes: WNL, Normal Bowel Sounds, Soft. No: Hematemesis Edema: No Labs: CBC, BMP 11/04/16 05:35 11/04/16 05:35 INR, PTT INR 1.57 (0.82-1.09) H 11/03/16 12:09 Problem List - Problems (1) Pulmonary fibrosis Code(s): J84.10 - PULMONARY FIBROSIS, UNSPECIFIED (2) Pneumonia due to infectious organism Code(s): J18.9 - PNEUMONIA, UNSPECIFIED ORGANISM Assessment/Plan Microbiology 11/04/16 17:30 Nasopharyngeal Swab Influenza Types A,B Antigen (ULISES) - Final 11/04/16 17:30 Nasopharyngeal Swab - Final 11/04/16 17:30 Nasopharyngeal Swab Respiratory Virus Panel - Preliminary 11/03/16 13:00 Blood - Peripheral Venous Blood Culture - Preliminary NO GROWTH OBTAINED AFTER 24 HOURS, INCUBATION TO CONTINUE FOR 4 DAYS. 11/03/16 12:40 Blood - Peripheral Venous Blood Culture - Preliminary NO GROWTH OBTAINED AFTER 24 HOURS, INCUBATION TO CONTINUE FOR 4 DAYS. Laboratory Tests 11/03/16 11/04/16 11/04/16 19:00 05:35 05:35 WBC 8.7 Hgb 14.2 Hct 43.2 Plt Count 211 Creat Clearance w eGFR > 60 Lactic Acid 2.371 H* 11/04/16 05:35 WBC Hgb Hct Plt Count Creat Clearance w eGFR Lactic Acid 2.185 H* Assessment Pulmonary fibrosis with super infection? pneumonia acute improving Atrial fibrillation Plan Can switch to oral levofloxacin 500mg daily few more days Luna LINN
--- NOTE | 2016-11-05 16:12 | PN ---
Progress Note, Physician History of Present Illness: Cough and dyspnea improved. Episodes of rapid afib. - Current Medication List Current Medications: Active Medications Acetaminophen (Tylenol -) 650 mg PO Q4H PRN PRN Reason: FEVER OR PAIN Albuterol/Ipratropium (Duoneb -) 1 amp NEB QIDR [facility] Last Admin: 11/05/16 11:10 Dose: 1 amp Digoxin (Lanoxin -) 0.125 mg PO Q2D [facility] Last Admin: 11/05/16 15:12 Dose: 0.125 mg Furosemide (Lasix Injection -) 40 mg IVPB DAILY [facility] Last Admin: 11/05/16 12:17 Dose: 40 mg Levothyroxine Sodium (Synthroid -) 50 mcg PO DAILY@0700 [facility] Last Admin: 11/05/16 06:04 Dose: 50 mcg Methylprednisolone Sodium Succinate (Solu-Medrol -) 40 mg IVPB Q8H-IV [facility] Metoprolol Tartrate (Lopressor -) 25 mg PO BID [facility] Last Admin: 11/05/16 09:34 Dose: 25 mg Rivaroxaban (Xarelto -) 20 mg PO DAILY [facility] Last Admin: 11/05/16 09:34 Dose: 20 mg - Objective Vital Signs: Vital Signs Temperature 98.3 F 11/05/16 15:00 Pulse Rate 100 H 11/05/16 15:12 Respiratory Rate 20 11/05/16 15:00 Blood Pressure 112/66 11/05/16 15:00 O2 Sat by Pulse Oximetry (%) 96 11/05/16 09:00 Constitutional: Yes: No Distress, Calm Neck: Yes: Supple Cardiovascular: Yes: Tachycardia, Pulse Irregular Respiratory: Yes: Regular, Diminished, On Nasal O2, Rales (Dry) Gastrointestinal: Yes: Normal Bowel Sounds, Soft Edema: No Labs: CBC, BMP 11/04/16 05:35 11/04/16 05:35 INR, PTT INR 1.57 (0.82-1.09) H 11/03/16 12:09 Problem List - Problems (1) Afib Code(s): I48.91 - UNSPECIFIED ATRIAL FIBRILLATION Qualifiers: Atrial fibrillation type: chronic Qualified Code(s): I48.2 - Chronic atrial fibrillation (2) Hypoxia Code(s): R09.02 - HYPOXEMIA (3) Pneumonia Code(s): J18.9 - PNEUMONIA, UNSPECIFIED ORGANISM Qualifiers: Pneumonia type: due to unspecified organism Laterality: unspecified laterality Lung location: unspecified part of lung Qualified Code(s): J18.9 - Pneumonia, unspecified organism (4) Pulmonary fibrosis Code(s): J84.10 - PULMONARY FIBROSIS, UNSPECIFIED (5) HLD (hyperlipidemia) Code(s): E78.5 - HYPERLIPIDEMIA, UNSPECIFIED Qualifiers: Hyperlipidemia type: pure hypercholesterolemia Qualified Code(s): E78.0 - Pure hypercholesterolemia (6) HTN (hypertension) Code(s): I10 - ESSENTIAL (PRIMARY) HYPERTENSION Qualifiers: Hypertension type: essential hypertension Qualified Code(s): I10 - Essential (primary) hypertension (7) Hypothyroid Code(s): E03.9 - HYPOTHYROIDISM, UNSPECIFIED (8) Rapid atrial fibrillation Code(s): I48.91 - UNSPECIFIED ATRIAL FIBRILLATION (9) Shortness of breath Code(s): R06.02 - SHORTNESS OF BREATH Assessment/Plan 11/03/2016 Echo: Normal biventricular size and fxn, mild LAE, mild MR, TR, RVSP 30-40 mmHg 1. IPF, possible PNA improving 2. Atrial fibrillation with rapid ventricular response, ([id number]) on NOAC 2. HTN 3. Hypercholesterolemia 4. Hypothyroidism PLAN: 1. Abx course per ID, BD, steroids, O2 to maintain saO2 2. F/u blood cx NGTD 3. Increase Lopressor 25 tid, Xarelto 20 qPM, recommend d/c digoxin and decrease diuretics
[2016-11-06] MEDS: methylPREDNISolone NA SUCC 40 MG/1 ML VIAL IVPB SCH ×3 (02:16→18:30)
[2016-11-06] MEDS: ALBUTEROL SO4 2.5/IPRATROPIUM 0.5 INH SOL 3 ML VIAL.NEB. NEB SCH ×4 (06:30→23:56)
[2016-11-06] MEDS: LEVOTHYROXINE NA 50 MCG TABLET (FP) PO SCH (06:31)
[2016-11-06] MEDS: METOPROLOL TARTRATE 25 MG TABLET (FP) PO SCH ×3 (06:31→21:50)
--- NOTE | 2016-11-06 09:54 | PN ---
Progress Note, Physician - Current Medication List Current Medications: Active Medications Acetaminophen (Tylenol -) 650 mg PO Q4H PRN PRN Reason: FEVER OR PAIN Albuterol/Ipratropium (Duoneb -) 1 amp NEB QIDR [facility] Last Admin: 11/06/16 06:30 Dose: 1 amp Levothyroxine Sodium (Synthroid -) 50 mcg PO DAILY@0700 [facility] Last Admin: 11/06/16 06:31 Dose: 50 mcg Methylprednisolone Sodium Succinate (Solu-Medrol -) 40 mg IVPB Q8H-IV [facility] Last Admin: 11/06/16 02:16 Dose: 40 mg Metoprolol Tartrate (Lopressor -) 25 mg PO TID [facility] Last Admin: 11/06/16 06:31 Dose: 25 mg Rivaroxaban (Xarelto -) 20 mg PO DAILY [facility] Last Admin: 11/05/16 09:34 Dose: 20 mg - Objective Vital Signs: Vital Signs Temperature 97.6 F 11/06/16 06:00 Pulse Rate 99 H 11/06/16 06:00 Respiratory Rate 20 11/06/16 06:00 Blood Pressure 122/86 11/06/16 06:00 O2 Sat by Pulse Oximetry (%) 96 11/05/16 22:00 Cardiovascular: Yes: WNL Respiratory: Yes: WNL Gastrointestinal: Yes: WNL Labs: CBC, BMP 11/04/16 05:35 11/04/16 05:35 INR, PTT INR 1.57 (0.82-1.09) H 11/03/16 12:09 Problem List - Problems (1) Afib Code(s): I48.91 - UNSPECIFIED ATRIAL FIBRILLATION Qualifiers: Atrial fibrillation type: chronic Qualified Code(s): I48.2 - Chronic atrial fibrillation (2) CHF (congestive heart failure) Code(s): I50.9 - HEART FAILURE, UNSPECIFIED (3) COPD (chronic obstructive pulmonary disease) Code(s): J44.9 - CHRONIC OBSTRUCTIVE PULMONARY DISEASE, UNSPECIFIED Qualifiers : COPD type: unspecified COPD Qualified Code(s): J44.9 - Chronic obstructive pulmonary disease, unspecified (4) Pneumonia Code(s): J18.9 - PNEUMONIA, UNSPECIFIED ORGANISM Qualifiers: Pneumonia type: due to unspecified organism Laterality: unspecified laterality Lung location: unspecified part of lung Qualified Code(s): J18.9 - Pneumonia, unspecified organism Assessment/Plan (1) Hypoxia Assessment/Plan: IV STEROIDS O2 NEBS PULM ON CASE Code(s): R09.02 - HYPOXEMIA (2) Pneumonia Assessment/Plan: ABX -> CEFTRIAXONE 1gm DAILY RESTARTED (STOPPED ON 11/05?) NO LEVAQUIN 2/2 ITCH - REPEAT LACTIC ACID Code(s): J18.9 - PNEUMONIA, UNSPECIFIED ORGANISM Qualifiers: Pneumonia type: due to unspecified organism Laterality: unspecified laterality Lung location: unspecified part of lung Qualified Code(s): J18.9 - Pneumonia, unspecified organism (3) Rapid atrial fibrillation Assessment/Plan: ON LOPRESSOR--WILL D/W PULM AND CARDIO ADD DIG --[place] LOW XARELTO HR 99 Code(s): I48.91 - UNSPECIFIED ATRIAL FIBRILLATION (4) CHF (congestive heart failure) Assessment/Plan: ECHO LASIX 20 X 1 Code(s): I50.9 - HEART FAILURE, UNSPECIFIED (5) COPD (chronic obstructive pulmonary disease) Assessment/Plan: SOLUMEDROL NEBS PULM Code(s): J44.9 - CHRONIC OBSTRUCTIVE PULMONARY DISEASE, UNSPECIFIED LEVEL VIAL CURVATURE GAUGER FM
--- NOTE | 2016-11-06 10:27 | PN ---
Progress Note (short form) - Note Progress Note: PULMONARY MODERATE SUBJECTIVE IMPROVEMENT OOB TO CHAIR/ VSS/AFEBRILE ANICTERIC SCATTERED CRACKLES BILATERALLY S1S2 IRREG INCR VR BS+ SOFT DIMINISHED LOWER EXT EDEMA LABS/MEDS/NOTES/IMAGING/MICRO REVIEWED (1) Afib Code(s): I48.91 - UNSPECIFIED ATRIAL FIBRILLATION Qualifiers: Atrial fibrillation type: chronic Qualified Code(s): I48.2 - Chronic atrial fibrillation (2) CHF (congestive heart failure) Code(s): I50.9 - HEART FAILURE, UNSPECIFIED (3) COPD (chronic obstructive pulmonary disease) Code(s): J44.9 - CHRONIC OBSTRUCTIVE PULMONARY DISEASE, UNSPECIFIED (4) Hypoxia Code(s): R09.02 - HYPOXEMIA (5) Pneumonia Code(s): J18.9 - PNEUMONIA, UNSPECIFIED ORGANISM Qualifiers: Pneumonia type: due to unspecified organism Laterality: unspecified laterality Lung location: unspecified part of lung Qualified Code(s): J18.9 - Pneumonia, unspecified organism (6) Pulmonary fibrosis Code(s): J84.10 - PULMONARY FIBROSIS, UNSPECIFIED (7) HLD (hyperlipidemia) Code(s): E78.5 - HYPERLIPIDEMIA, UNSPECIFIED (8) HTN (hypertension) Code(s): I10 - ESSENTIAL (PRIMARY) HYPERTENSION (9) Hypothyroid Code(s): E03.9 - HYPOTHYROIDISM, UNSPECIFIED (10) Shortness of breath Code(s): R06.02 - SHORTNESS OF BREATH (11) Tachycardia Code(s): R00.0 - TACHYCARDIA, UNSPECIFIED Assessment/Plan ABX Per ID/continue diuretics/bronchodilators sputum negative thus far for influ Urine antigens are negative Medrol as ordered O2 as needed Will follow Lupis ANN MD
[2016-11-06] MEDS: RIVAROXABAN 20 MG TABLET PO SCH (10:35)
[2016-11-06] MEDS: CEFTRIAXONE 50 ML IVPB SCH (10:35)
--- NOTE | 2016-11-06 14:16 | PN ---
Progress Note, Physician Chief Complaint: Events noted Complains of intermittent dyspnea, improving History of Present Illness: Patient was seen and examined. Awake and alert. Chart was reviewed Denies chest pain or palpitations. Less SOB - Current Medication List Current Medications: Active Medications Acetaminophen (Tylenol -) 650 mg PO Q4H PRN PRN Reason: FEVER OR PAIN Albuterol/Ipratropium (Duoneb -) 1 amp NEB QIDR [facility] Last Admin: 11/06/16 11:10 Dose: 1 amp Ceftriaxone Sodium (Rocephin 1gm Ivpb (Pre-Docked)) 50 mls @ 100 mls/hr IVPB DAILY [facility] Last Admin: 11/06/16 10:35 Dose: 100 mls/hr Levothyroxine Sodium (Synthroid -) 50 mcg PO DAILY@0700 [facility] Last Admin: 11/06/16 06:31 Dose: 50 mcg Methylprednisolone Sodium Succinate (Solu-Medrol -) 40 mg IVPB Q8H-IV [facility] Last Admin: 11/06/16 10:35 Dose: 40 mg Metoprolol Tartrate (Lopressor -) 25 mg PO TID [facility] Last Admin: 11/06/16 06:31 Dose: 25 mg Rivaroxaban (Xarelto -) 20 mg PO DAILY [facility] Last Admin: 11/06/16 10:35 Dose: 20 mg - Objective Vital Signs: Vital Signs Temperature 97.7 F 11/06/16 10:30 Pulse Rate 98 H 11/06/16 11:10 Respiratory Rate 22 11/06/16 10:30 Blood Pressure 110/63 11/06/16 10:30 O2 Sat by Pulse Oximetry (%) 92 L 11/06/16 11:10 Neck: Yes: Supple Cardiovascular: Yes: Pulse Irregular, S1, S2 Respiratory: Yes: Diminished Gastrointestinal: Yes: Normal Bowel Sounds, Soft. No: Tenderness Edema: No Additional Findings/Remarks: - Review of Systems Constitutional: no symptoms reported Respiratory: (+) Cough, SOB, denies: Sputum Production Cardiovascular: as noted above Gastrointestinal: denies Nausea, Vomiting, Diarrhea, Constipation or Abdominal Pain Genitourinary: no symptoms reported Musculoskeletal: no symptoms reported Problem List - Problems (1) Afib Code(s): I48.91 - UNSPECIFIED ATRIAL FIBRILLATION Qualifiers: Atrial fibrillation type: chronic Qualified Code(s): I48.2 - Chronic atrial fibrillation (2) COPD (chronic obstructive pulmonary disease) Code(s): J44.9 - CHRONIC OBSTRUCTIVE PULMONARY DISEASE, UNSPECIFIED Qualifiers : COPD type: unspecified COPD Qualified Code(s): J44.9 - Chronic obstructive pulmonary disease, unspecified (3) Pneumonia Code(s): J18.9 - PNEUMONIA, UNSPECIFIED ORGANISM Qualifiers: Pneumonia type: due to unspecified organism Laterality: unspecified laterality Lung location: unspecified part of lung Qualified Code(s): J18.9 - Pneumonia, unspecified organism (4) Pulmonary fibrosis Code(s): J84.10 - PULMONARY FIBROSIS, UNSPECIFIED (5) HLD (hyperlipidemia) Code(s): E78.5 - HYPERLIPIDEMIA, UNSPECIFIED Qualifiers: Hyperlipidemia type: pure hypercholesterolemia Qualified Code(s): E78.0 - Pure hypercholesterolemia (6) HTN (hypertension) Code(s): I10 - ESSENTIAL (PRIMARY) HYPERTENSION Qualifiers: Hypertension type: essential hypertension Qualified Code(s): I10 - Essential (primary) hypertension (7) Hypothyroid Code(s): E03.9 - HYPOTHYROIDISM, UNSPECIFIED Qualifiers: Hypothyroidism type: unspecified Qualified Code(s): E03.9 - Hypothyroidism, unspecified Assessment/Plan 1. Idiopathic pulmonary fibrosis and possible pneumonia improving 2. Atrial fibrillation with rapid ventricular response, ([id number]) on NOAC 2. HTN 3. Hypercholesterolemia 4. Hypothyroidism PLAN: 1. Antibiotic course per ID, bronchodilator, steroids and O2 to maintain saO2 2. Continue Lopressor 25 mg TID and Xarelto 20 mg QD Further plans are to follow Santy Werner MD
[2016-11-07] MEDS: methylPREDNISolone NA SUCC 40 MG/1 ML VIAL IVPB SCH ×2 (02:05→09:45)
[2016-11-07] MEDS: LEVOTHYROXINE NA 50 MCG TABLET (FP) PO SCH (06:20)
[2016-11-07] MEDS: METOPROLOL TARTRATE 25 MG TABLET (FP) PO SCH ×3 (06:20→21:23)
[2016-11-07] MEDS: ALBUTEROL SO4 2.5/IPRATROPIUM 0.5 INH SOL 3 ML VIAL.NEB. NEB SCH ×4 (06:26→23:22)
[2016-11-07 07:07] LABS: BASOPHIL 0.2 % (0-2.0); MCH 29.3 pg (25.7-33.7); MCHC 32.7 g/dl (32.0-36.0); MEAN CELL VOLUME 89.6 fl (80-96); MEAN PLT VOLUME 7.8 fl (7.5-11.1); NEUTROPHILS 91.7 % (42.8-82.8); PLATELET COUNT 273 K/MM3 (134-434); RDW 15.6 % (11.6-15.6); WHITE BLOOD COUNT 13.7 K/mm3 (4.0-10.0)
--- NOTE | 2016-11-07 08:03 | PN ---
Progress Note, Physician Chief Complaint: MILD AGITATION - Current Medication List Current Medications: Active Medications Acetaminophen (Tylenol -) 650 mg PO Q4H PRN PRN Reason: FEVER OR PAIN Albuterol/Ipratropium (Duoneb -) 1 amp NEB QIDR [facility] Last Admin: 11/07/16 06:26 Dose: 1 amp Ceftriaxone Sodium (Rocephin 1gm Ivpb (Pre-Docked)) 50 mls @ 100 mls/hr IVPB DAILY [facility] Last Admin: 11/06/16 10:35 Dose: 100 mls/hr Levothyroxine Sodium (Synthroid -) 50 mcg PO DAILY@0700 [facility] Last Admin: 11/07/16 06:20 Dose: 50 mcg Methylprednisolone Sodium Succinate (Solu-Medrol -) 40 mg IVPB Q8H-IV [facility] Last Admin: 11/07/16 02:05 Dose: 40 mg Metoprolol Tartrate (Lopressor -) 25 mg PO TID [facility] Last Admin: 11/07/16 06:20 Dose: 25 mg Rivaroxaban (Xarelto -) 20 mg PO DAILY [facility] Last Admin: 11/06/16 10:35 Dose: 20 mg - Objective Vital Signs: Vital Signs Temperature 98 F 11/07/16 06:00 Pulse Rate 100 H 11/07/16 06:00 Respiratory Rate 20 11/07/16 06:00 Blood Pressure 124/68 11/07/16 06:00 O2 Sat by Pulse Oximetry (%) 98 11/06/16 22:00 Cardiovascular: Yes: WNL Respiratory: Yes: WNL Gastrointestinal: Yes: WNL Edema: No Labs: CBC, BMP 11/07/16 06:15 INR, PTT INR 1.57 (0.82-1.09) H 11/03/16 12:09 Problem List - Problems (1) Afib Code(s): I48.91 - UNSPECIFIED ATRIAL FIBRILLATION Qualifiers: Atrial fibrillation type: chronic Qualified Code(s): I48.2 - Chronic atrial fibrillation (2) CHF (congestive heart failure) Code(s): I50.9 - HEART FAILURE, UNSPECIFIED (3) COPD (chronic obstructive pulmonary disease) Code(s): J44.9 - CHRONIC OBSTRUCTIVE PULMONARY DISEASE, UNSPECIFIED Qualifiers : COPD type: unspecified COPD Qualified Code(s): J44.9 - Chronic obstructive pulmonary disease, unspecified (4) Pneumonia Code(s): J18.9 - PNEUMONIA, UNSPECIFIED ORGANISM Qualifiers: Pneumonia type: due to unspecified organism Laterality: unspecified laterality Lung location: unspecified part of lung Qualified Code(s): J18.9 - Pneumonia, unspecified organism Assessment/Plan (1) Hypoxia Assessment/Plan: IV STEROIDS O2 NEBS PULM ON CASE Code(s): R09.02 - HYPOXEMIA (2) Pneumonia Assessment/Plan: ABX -> CEFTRIAXONE 1gm DAILY RESTARTED (STOPPED ON 11/05?) NO LEVAQUIN 2/ ITCH F/U LACTIC ACID ID ON CASE WBC INC TO 14 NO FEVER Code(s): J18.9 - PNEUMONIA, UNSPECIFIED ORGANISM Qualifiers: Pneumonia type: due to unspecified organism Laterality: unspecified laterality Lung location: unspecified part of lung Qualified Code(s): J18.9 - Pneumonia, unspecified organism (3) Rapid atrial fibrillation Assessment/Plan: ON LOPRESSOR DIG XARELTO Code(s): I48.91 - UNSPECIFIED ATRIAL FIBRILLATION (4) CHF (congestive heart failure) Assessment/Plan: ECHO LASIX Code(s): I50.9 - HEART FAILURE, UNSPECIFIED (5) COPD (chronic obstructive pulmonary disease) Assessment/Plan: SOLUMEDROL NEBS PULM Code(s): J44.9 - CHRONIC OBSTRUCTIVE PULMONARY DISEASE, UNSPECIFIED [employer]
[2016-11-07 08:41] LABS: ALBUMIN 2.8 g/dl (3.4-5.0); BILIRUBIN,TOTAL 0.7 mg/dL (0.2-1.0); CALCIUM 8.5 mg/dL (8.5-10.1); TOT PROT 5.9 g/dl (6.4-8.2)
[2016-11-07] MEDS ORDERED: PT OWN MED DRAWER 7, Y5N ONE (09:27)
[2016-11-07] MEDS: CEFTRIAXONE 50 ML IVPB SCH (09:57)
[2016-11-07] MEDS: RIVAROXABAN 20 MG TABLET PO SCH (11:17)
--- NOTE | 2016-11-07 11:32 | PN ---
Progress Note (short form) - Note Progress Note: PULMONARY PLANS TO GO HOME TOMORROW OOB TO CHAIR/ VSS/AFEBRILE ANICTERIC SCATTERED CRACKLES BILATERALLY BASES S1S2 IRREG BS+ SOFT DIMINISHED LOWER EXT EDEMA LABS/MEDS/NOTES/IMAGING/MICRO REVIEWED LACTIC ACID INCREASING DESPITE CLINICAL IMPROVEMENT (1) Afib Code(s): I48.91 - UNSPECIFIED ATRIAL FIBRILLATION Qualifiers: Atrial fibrillation type: chronic Qualified Code(s): I48.2 - Chronic atrial fibrillation (2) CHF (congestive heart failure) Code(s): I50.9 - HEART FAILURE, UNSPECIFIED (3) COPD (chronic obstructive pulmonary disease) Code(s): J44.9 - CHRONIC OBSTRUCTIVE PULMONARY DISEASE, UNSPECIFIED (4) Hypoxia Code(s): R09.02 - HYPOXEMIA (5) Pneumonia Code(s): J18.9 - PNEUMONIA, UNSPECIFIED ORGANISM Qualifiers: Pneumonia type: due to unspecified organism Laterality: unspecified laterality Lung location: unspecified part of lung Qualified Code(s): J18.9 - Pneumonia, unspecified organism (6) Pulmonary fibrosis Code(s): J84.10 - PULMONARY FIBROSIS, UNSPECIFIED (7) HLD (hyperlipidemia) Code(s): E78.5 - HYPERLIPIDEMIA, UNSPECIFIED (8) HTN (hypertension) Code(s): I10 - ESSENTIAL (PRIMARY) HYPERTENSION (9) Hypothyroid Code(s): E03.9 - HYPOTHYROIDISM, UNSPECIFIED (10) Shortness of breath Code(s): R06.02 - SHORTNESS OF BREATH (11) Tachycardia Code(s): R00.0 - TACHYCARDIA, UNSPECIFIED Assessment/Plan ABX Per ID/ consider diuretics/ bronchodilators Medrol to be changed to prednisone O2 as needed Will follow Lupis ANN MD
[2016-11-07] MEDS ORDERED: FUROSEMIDE 40 MG/4 ML INJECTABLE VIAL IVPUSH ONE (11:33)
[2016-11-07] MEDS: predniSONE 10 MG TABLET (UD) PO SCH (12:14)
--- NOTE | 2016-11-07 19:17 | PN ---
Progress Note, Physician Chief Complaint: Events noted Complains of intermittent dyspnea, improved. History of Present Illness: Patient was seen and examined. Awake and alert. Chart was reviewed Denies chest pain or palpitations. Less SOB. Not in distress - Current Medication List Current Medications: Active Medications Acetaminophen (Tylenol -) 650 mg PO Q4H PRN PRN Reason: FEVER OR PAIN Albuterol/Ipratropium (Duoneb -) 1 amp NEB QIDR [facility] Last Admin: 11/07/16 17:45 Dose: 1 amp Ceftriaxone Sodium (Rocephin 1gm Ivpb (Pre-Docked)) 50 mls @ 100 mls/hr IVPB DAILY [facility] Last Admin: 11/07/16 09:57 Dose: 100 mls/hr Levothyroxine Sodium (Synthroid -) 50 mcg PO DAILY@0700 [facility] Last Admin: 11/07/16 06:20 Dose: 50 mcg Metoprolol Tartrate (Lopressor -) 25 mg PO TID [facility] Last Admin: 11/07/16 14:51 Dose: 25 mg Prednisone (Deltasone -) 30 mg PO DAILY [facility] Last Admin: 11/07/16 12:14 Dose: Not Given Rivaroxaban (Xarelto -) 20 mg PO DAILY [facility] Last Admin: 11/07/16 11:17 Dose: 20 mg - Objective Vital Signs: Vital Signs Temperature 97.9 F 11/07/16 18:24 Pulse Rate 90 11/07/16 18:24 Respiratory Rate 18 11/07/16 18:24 Blood Pressure 104/47 11/07/16 18:24 O2 Sat by Pulse Oximetry (%) 94 L 11/07/16 11:20 Neck: Yes: Supple Cardiovascular: Yes: Pulse Irregular, S1, S2 Respiratory: Yes: Diminished Gastrointestinal: Yes: Normal Bowel Sounds, Soft. No: Tenderness Edema: No Additional Findings/Remarks: - Review of Systems Constitutional: no symptoms reported Respiratory: (+) Cough, SOB, denies: Sputum Production Cardiovascular: as noted above Gastrointestinal: denies Nausea, Vomiting, Diarrhea, Constipation or Abdominal Pain Genitourinary: no symptoms reported Musculoskeletal: no symptoms reported Labs: CBC, BMP 11/07/16 06:15 11/07/16 06:15 Problem List - Problems (1) Afib Code(s): I48.91 - UNSPECIFIED ATRIAL FIBRILLATION Qualifiers: Atrial fibrillation type: chronic Qualified Code(s): I48.2 - Chronic atrial fibrillation (2) COPD (chronic obstructive pulmonary disease) Code(s): J44.9 - CHRONIC OBSTRUCTIVE PULMONARY DISEASE, UNSPECIFIED Qualifiers : COPD type: unspecified COPD Qualified Code(s): J44.9 - Chronic obstructive pulmonary disease, unspecified (3) Pneumonia Code(s): J18.9 - PNEUMONIA, UNSPECIFIED ORGANISM Qualifiers: Pneumonia type: due to unspecified organism Laterality: unspecified laterality Lung location: unspecified part of lung Qualified Code(s): J18.9 - Pneumonia, unspecified organism (4) Pulmonary fibrosis Code(s): J84.10 - PULMONARY FIBROSIS, UNSPECIFIED (5) HLD (hyperlipidemia) Code(s): E78.5 - HYPERLIPIDEMIA, UNSPECIFIED Qualifiers: Hyperlipidemia type: pure hypercholesterolemia Qualified Code(s): E78.0 - Pure hypercholesterolemia (6) HTN (hypertension) Code(s): I10 - ESSENTIAL (PRIMARY) HYPERTENSION Qualifiers: Hypertension type: essential hypertension Qualified Code(s): I10 - Essential (primary) hypertension (7) Hypothyroid Code(s): E03.9 - HYPOTHYROIDISM, UNSPECIFIED Qualifiers: Hypothyroidism type: unspecified Qualified Code(s): E03.9 - Hypothyroidism, unspecified Assessment/Plan 1. Idiopathic pulmonary fibrosis and possible pneumonia improving 2. Atrial fibrillation with rapid ventricular response, ([id number]) on NOAC 2. HTN 3. Hypercholesterolemia 4. Hypothyroidism PLAN: 1. Antibiotic course per ID, bronchodilator, steroids and O2 to maintain saO2 2. Continue Lopressor 25 mg TID and Xarelto 20 mg QD Further plans are to follow. Possible discharge tomorrow Santy Werner MD
[2016-11-08] MEDS ORDERED: NITROGLYCERIN SUBLINGUAL 1/150 0.4 MG TAB ONE (00:44)
[2016-11-08] MEDS ORDERED: NITROGLYCERIN SUBLINGUAL 1/200 0.3 MG BTL SL PRN (00:44)
[2016-11-08] MEDS ORDERED: morphine CARPU-JECT 2 MG/1 ML DISP.SYRIN IVPUSH ONE (00:44)
[2016-11-08] MEDS ORDERED: ASPIRIN 81 MG CHEWABLE TABLETS ONE (00:51)
[2016-11-08] MEDS ORDERED: ASPIRIN 81 MG CHEWABLE TABLETS PO ONE (00:51)
--- NOTE | 2016-11-08 01:09 | HOSP ---
Subjective - Review of Symptoms Events since last encounter: Asked to see patient experiencing chest pain. Chest pain is 8/10 constant non radiating substernal pressure. She states it feels "As if someone punched me in chest". Denies SOB, BARAJAS, palpitations, n/v. HEENT: No: Head Aches, Sinus Congestion Pulmonary: No: Dyspnea, Cough Cardiovascular: Yes: Chest Pain, Orthopnea. No: Palpitations Gastrointestinal: No: Nausea, Vomiting Genitourinary: No: Dysuria Musculoskeletal: Yes: No Symptoms Neurological: No: Weakness, Numbness, Confusion Physical Examination Vital Signs: Vital Signs Temperature 97.8 F 11/07/16 19:59 Pulse Rate 84 11/07/16 19:59 Respiratory Rate 18 11/07/16 19:59 Blood Pressure 103/59 11/07/16 19:59 O2 Sat by Pulse Oximetry (%) 94 L 11/07/16 11:20 Constitutional: Yes: Anxious. No: Diaphoresis Eyes: Yes: Conjunctiva Clear, EOM Intact HENT: Yes: Atraumatic, Normocephalic Neck: Yes: Supple Cardiovascular: Yes: Pulse Irregular. No: JVD Respiratory: Yes: Other (crackles at lung bases bilat.) Peripheral Pulses WNL: Yes Psychiatric: Yes: Alert, Oriented Labs: CBC, BMP 11/07/16 06:15 11/07/16 06:15 Hospitalist Encounter Assessment: 86 yo F with PMHx of Afib, CAD, CHF, and COPD admitted for PNA complaining of chest pain. Recommendations/Interventions: * Ordered STAT:EKG, CXR, Trops and coags. * MEDS given : ASA 162mg, sublingual nitro x1, RESULTS: Laboratory Results - last 24 hr 11/08/16 11/08/16 00:50 00:50 WBC RBC Hgb Hct MCV MCHC RDW Plt Count MPV Neutrophils % Lymphocytes % Monocytes % Eosinophils % Basophils % INR 1.59 H PTT (Actin FS) 30.4 Sodium Potassium Chloride Carbon Dioxide Anion Gap BUN Creatinine Creat Clearance w eGFR Random Glucose Lactic Acid Calcium Total Bilirubin AST ALT Alkaline Phosphatase Creatine Kinase 26 Troponin I < 0.02 Total Protein Albumin * EKG afib , no st changes. * CXR- bibasilar congestion * TROPS- (-) x1 * PAIN significantly improved. * Cadio on board will see tomorrow. Visit type - Emergency Visit Emergency Visit: Yes ED Registration Date: 11/03/16 Care time: The patient presented to the Emergency Department on the above date and was hospitalized for further evaluation of their emergent condition. - New Patient This patient is new to me today: Yes Date on this admission: 11/08/16 - Critical Care Critical Care patient: No *Heart Score (ED) - History History: Slightly suspicious - Electrocardiogram EKG: Non specific repolarization disturbance - Age Age: >/= 65 - Risk Factors Risk Factors Heart Score: Yes Hx Hypercholesterolemia, Yes Hx Hypertension, Yes Positive family hx of cardiac disease Based on the list above the patient has:: >/=3 risk factors or Hx atherosclerotic disease - Troponin Troponin: </= normal limit - Score Heart Score - Total: 5
[2016-11-08 01:18] LABS: INR 1.59 (0.82-1.09); PROTHROMBIN TIME (PATIENT) 17.6 SEC (9.98-11.88)
[2016-11-08 01:21] LABS: ACTIVATED PTT 30.4 SECONDS (26.9-34.4)
[2016-11-08 01:32] LABS: TROPONIN I < 0.02 ng/ml (0.00-0.05)
[2016-11-08] MEDS: METOPROLOL TARTRATE 25 MG TABLET (FP) PO SCH (06:07)
[2016-11-08] MEDS: LEVOTHYROXINE NA 50 MCG TABLET (FP) PO SCH (06:33)
[2016-11-08 06:41] VITALS: TEMP 97.7
[2016-11-08] MEDS: ALBUTEROL SO4 2.5/IPRATROPIUM 0.5 INH SOL 3 ML VIAL.NEB. NEB SCH ×2 (06:52→11:50)
[2016-11-08 08:41] LABS: BASOPHIL 0.2 % (0-2.0); EOSINOPHIL 0.6 % (0-4.5); MCH 29.5 pg (25.7-33.7); MCHC 32.7 g/dl (32.0-36.0); MEAN PLT VOLUME 7.5 fl (7.5-11.1); NEUTROPHILS 81.4 % (42.8-82.8); PLATELET COUNT 284 K/MM3 (134-434); RDW 15.7 % (11.6-15.6); WHITE BLOOD COUNT 16.6 K/mm3 (4.0-10.0)
--- NOTE | 2016-11-08 09:02 | PN ---
Progress Note, Physician - Current Medication List Current Medications: Active Medications Acetaminophen (Tylenol -) 650 mg PO Q4H PRN PRN Reason: FEVER OR PAIN Albuterol/Ipratropium (Duoneb -) 1 amp NEB QIDR [facility] Last Admin: 11/08/16 06:52 Dose: 1 amp Ceftriaxone Sodium (Rocephin 1gm Ivpb (Pre-Docked)) 50 mls @ 100 mls/hr IVPB DAILY [facility] Last Admin: 11/07/16 09:57 Dose: 100 mls/hr Levothyroxine Sodium (Synthroid -) 50 mcg PO DAILY@0700 [facility] Last Admin: 11/08/16 06:33 Dose: 50 mcg Metoprolol Tartrate (Lopressor -) 25 mg PO TID [facility] Last Admin: 11/08/16 06:07 Dose: 25 mg Prednisone (Deltasone -) 30 mg PO DAILY [facility] Last Admin: 11/07/16 12:14 Dose: Not Given Rivaroxaban (Xarelto -) 20 mg PO DAILY [facility] Last Admin: 11/07/16 11:17 Dose: 20 mg - Objective Vital Signs: Vital Signs Temperature 97.7 F 11/08/16 06:00 Pulse Rate 110 H 11/08/16 06:00 Respiratory Rate 18 11/08/16 06:00 Blood Pressure 118/80 11/08/16 06:00 O2 Sat by Pulse Oximetry (%) 94 L 11/07/16 11:20 Cardiovascular: Yes: Pulse Irregular, S1, S2 Respiratory: Yes: Rales Gastrointestinal: Yes: Normal Bowel Sounds, Soft Labs: CBC, BMP 11/08/16 08:20 INR, PTT INR 1.59 (0.82-1.09) H 11/08/16 00:50 Problem List - Problems (1) Hypoxia Code(s): R09.02 - HYPOXEMIA (2) Pneumonia Code(s): J18.9 - PNEUMONIA, UNSPECIFIED ORGANISM Qualifiers: Pneumonia type: due to unspecified organism Laterality: unspecified laterality Lung location: unspecified part of lung Qualified Code(s): J18.9 - Pneumonia, unspecified organism (3) Rapid atrial fibrillation Code(s): I48.91 - UNSPECIFIED ATRIAL FIBRILLATION (4) CHF (congestive heart failure) Code(s): I50.9 - HEART FAILURE, UNSPECIFIED (5) COPD (chronic obstructive pulmonary disease) Code(s): J44.9 - CHRONIC OBSTRUCTIVE PULMONARY DISEASE, UNSPECIFIED Qualifiers : COPD type: unspecified COPD Qualified Code(s): J44.9 - Chronic obstructive pulmonary disease, unspecified Assessment/Plan (1) Chest Pain Assessment/Plan: RESOLVED-- FOLLOW CE EKG AND CXR PT WANTS TO GO HOME--WILL D/W CARDIO (2) Pneumonia Assessment/Plan: ABX -> CEFTRIAXONE 1gm DAILY RESTARTED (STOPPED ON 11/05?) NO LEVAQUIN 2/2 ITCH F/U LACTIC ACID ID ON CASE--F/U IF ON ORAL POSSIBLE DC HOME WBC INC TO 14 NO FEVER Code(s): J18.9 - PNEUMONIA, UNSPECIFIED ORGANISM Qualifiers: Pneumonia type: due to unspecified organism Laterality: unspecified laterality Lung location: unspecified part of lung Qualified Code(s): J18.9 - Pneumonia, unspecified organism (3) Rapid atrial fibrillation Assessment/Plan: ON LOPRESSOR DIG XARELTO Code(s): I48.91 - UNSPECIFIED ATRIAL FIBRILLATION (4) CHF (congestive heart failure) Assessment/Plan: ECHO LASIX Code(s): I50.9 - HEART FAILURE, UNSPECIFIED (5) COPD (chronic obstructive pulmonary disease) Assessment/Plan: SOLUMEDROL NEBS PULM Code(s): J44.9 - CHRONIC OBSTRUCTIVE PULMONARY DISEASE, UNSPECIFIED
--- NOTE | 2016-11-08 09:07 | DS ---
Physical Examination Vital Signs: Vital Signs Temperature 97.7 F 11/08/16 06:00 Pulse Rate 110 H 11/08/16 06:00 Respiratory Rate 18 11/08/16 06:00 Blood Pressure 118/80 11/08/16 06:00 O2 Sat by Pulse Oximetry (%) 94 L 11/07/16 11:20 Labs: CBC, BMP 11/08/16 08:20 Discharge Summary Reason For Visit: ATRIAL FIBRILLATION Current Active Problems Afib (Acute) CHF (congestive heart failure) (Acute) COPD (chronic obstructive pulmonary disease) (Acute) Fever (Acute) Hypoxia (Acute) Pneumonia (Acute) Pneumonia due to infectious organism (Acute) Pulmonary fibrosis (Acute) Hospital Course: 86 year old female with significant past medical history of a-fib (on Xarelto) , hypertension, hyperlipidemia, hypothyroidism, and pneumonia who presents to the emergency department from home with shortness of breath for the last 2 months. The patient states that her SOB has been gradually worsening over the last week. The patient has SOB when she gets out of bed. She reports intermittent hemoptysis with associated chills. The patient last saw her doctors in the fall but has scheduled appointments for next week. She states she has lost ~7lbs within the last month but she denies any decreased appetite. She denies any chest pain or palpitations. She denies any sick contacts but states she recently traveled to [place] to visit her children. The patient denies any recent illness or fevers. - Past Medical History Cardiovascular: Yes: HTN, Hyperlipdemia Pulmonary: Yes: COPD, Pulmonary Fibrosis Hepatobiliary: Yes: Cholelithiasis Endocrine: Yes: Hypothyroidism - Past Surgical History Past Surgical History: Yes: Cholecystectomy Condition: Stable - Instructions Referrals: Curt Wing MD [Primary Care Provider] - - Home Medications Comprehensive Discharge Medication List: Ambulatory Orders Levothyroxine [Synthroid -] 50 mcg PO DAILY 12/02/14 Metoprolol Tartrate [Lopressor -] 25 mg PO BID 12/02/14 Rivaroxaban [Xarelto] 1 each PO DAILY 12/02/14 Prednisone 10 mg PO DAILY 04/08/16
[2016-11-08 09:20] LABS: ALBUMIN 2.8 g/dl (3.4-5.0); ALK PHOS 60 U/L (45-117); ANION GAP 6 (8-16); BILIRUBIN,TOTAL 0.8 mg/dL (0.2-1.0); CALCIUM 8.7 mg/dL (8.5-10.1); CO2 35 mmol/L (21-32); CREATININE 0.9 mg/dL (0.55-1.02); GLUCOSE,RANDOM 92 mg/dL (74-106); SGOT/AST 15 U/L (15-37); SGPT/ALT 22 U/L (12-78); TOT PROT 5.9 g/dl (6.4-8.2)
[2016-11-08 09:28] VITALS: BP 92/56
[2016-11-08] MEDS: RIVAROXABAN 20 MG TABLET PO SCH (09:28)
[2016-11-08] MEDS: predniSONE 10 MG TABLET (UD) PO SCH (09:28)
[2016-11-08] MEDS: CEFTRIAXONE 50 ML IVPB SCH (09:29)
--- NOTE | 2016-11-08 09:41 | PN ---
Progress Note, Physician Chief Complaint: Events noted Not in distress this am History of Present Illness: Patient was seen and examined. Awake and alert. Chart was reviewed Episode of chest discomfort last night, now asymptomatic. Denies SOB or palpitations today - Current Medication List Current Medications: Active Medications Acetaminophen (Tylenol -) 650 mg PO Q4H PRN PRN Reason: FEVER OR PAIN Albuterol/Ipratropium (Duoneb -) 1 amp NEB QIDR [facility] Last Admin: 11/08/16 06:52 Dose: 1 amp Ceftriaxone Sodium (Rocephin 1gm Ivpb (Pre-Docked)) 50 mls @ 100 mls/hr IVPB DAILY [facility] Last Admin: 11/08/16 09:29 Dose: 100 mls/hr Levothyroxine Sodium (Synthroid -) 50 mcg PO DAILY@0700 [facility] Last Admin: 11/08/16 06:33 Dose: 50 mcg Metoprolol Tartrate (Lopressor -) 25 mg PO TID [facility] Last Admin: 11/08/16 06:07 Dose: 25 mg Prednisone (Deltasone -) 30 mg PO DAILY [facility] Last Admin: 11/08/16 09:28 Dose: 30 mg Rivaroxaban (Xarelto -) 20 mg PO DAILY [facility] Last Admin: 11/08/16 09:28 Dose: 20 mg - Objective Vital Signs: Vital Signs Temperature 97.7 F 11/08/16 06:00 Pulse Rate 89 11/08/16 09:16 Respiratory Rate 20 11/08/16 09:16 Blood Pressure 92/56 11/08/16 09:16 O2 Sat by Pulse Oximetry (%) 94 L 11/07/16 11:20 Neck: Yes: Supple Cardiovascular: Yes: Pulse Irregular, S1, S2 Respiratory: Yes: Diminished Gastrointestinal: Yes: Normal Bowel Sounds, Soft. No: Tenderness Edema: No Additional Findings/Remarks: - Review of Systems Constitutional: no symptoms reported Respiratory: (+) Cough, SOB, denies: Sputum Production Cardiovascular: as noted above Gastrointestinal: denies Nausea, Vomiting, Diarrhea, Constipation or Abdominal Pain Genitourinary: no symptoms reported Musculoskeletal: no symptoms reported Labs: CBC, BMP 11/08/16 08:20 11/08/16 08:20 INR, PTT INR 1.59 (0.82-1.09) H 11/08/16 00:50 - ....Imaging Chest X-ray: Report Reviewed Problem List - Problems (1) Afib Code(s): I48.91 - UNSPECIFIED ATRIAL FIBRILLATION Qualifiers: Atrial fibrillation type: chronic Qualified Code(s): I48.2 - Chronic atrial fibrillation (2) COPD (chronic obstructive pulmonary disease) Code(s): J44.9 - CHRONIC OBSTRUCTIVE PULMONARY DISEASE, UNSPECIFIED Qualifiers : COPD type: unspecified COPD Qualified Code(s): J44.9 - Chronic obstructive pulmonary disease, unspecified (3) Pneumonia Code(s): J18.9 - PNEUMONIA, UNSPECIFIED ORGANISM Qualifiers: Pneumonia type: due to unspecified organism Laterality: unspecified laterality Lung location: unspecified part of lung Qualified Code(s): J18.9 - Pneumonia, unspecified organism (4) Pulmonary fibrosis Code(s): J84.10 - PULMONARY FIBROSIS, UNSPECIFIED (5) HLD (hyperlipidemia) Code(s): E78.5 - HYPERLIPIDEMIA, UNSPECIFIED Qualifiers: Hyperlipidemia type: pure hypercholesterolemia Qualified Code(s): E78.0 - Pure hypercholesterolemia (6) HTN (hypertension) Code(s): I10 - ESSENTIAL (PRIMARY) HYPERTENSION Qualifiers: Hypertension type: essential hypertension Qualified Code(s): I10 - Essential (primary) hypertension (7) Hypothyroid Code(s): E03.9 - HYPOTHYROIDISM, UNSPECIFIED Qualifiers: Hypothyroidism type: unspecified Qualified Code(s): E03.9 - Hypothyroidism, unspecified Assessment/Plan 1. Idiopathic pulmonary fibrosis and possible pneumonia improving 2. Atrial fibrillation with variable ventricular response, ([id number]) on NOAC 2. HTN 3. Hypercholesterolemia 4. Hypothyroidism 5. Lactic acidosis - resolved, etiology unclear PLAN: 1. Antibiotic course per ID, bronchodilator, steroids and O2 to maintain saO2 2. Continue Lopressor 25 mg TID and Xarelto 20 mg QD Further plans are to follow. Can be discharged cardiac standpoint if second troponin is negative. possible acid reflux +/- anxiety Santy Werner MD
[2016-11-08 11:25] LABS: TROPONIN I < 0.02 ng/ml (0.00-0.05)
--- NOTE | 2016-11-08 11:53 | PN ---
Progress Note, Physician History of Present Illness: PULMONARY ALERT,FEELING BETTER,LESS DYSPNEIC - Current Medication List Current Medications: Active Medications Acetaminophen (Tylenol -) 650 mg PO Q4H PRN PRN Reason: FEVER OR PAIN Albuterol/Ipratropium (Duoneb -) 1 amp NEB QIDR [facility] Last Admin: 11/08/16 06:52 Dose: 1 amp Ceftriaxone Sodium (Rocephin 1gm Ivpb (Pre-Docked)) 50 mls @ 100 mls/hr IVPB DAILY [facility] Last Admin: 11/08/16 09:29 Dose: 100 mls/hr Levothyroxine Sodium (Synthroid -) 50 mcg PO DAILY@0700 [facility] Last Admin: 11/08/16 06:33 Dose: 50 mcg Metoprolol Tartrate (Lopressor -) 25 mg PO TID [facility] Last Admin: 11/08/16 06:07 Dose: 25 mg Prednisone (Deltasone -) 30 mg PO DAILY [facility] Last Admin: 11/08/16 09:28 Dose: 30 mg Rivaroxaban (Xarelto -) 20 mg PO DAILY [facility] Last Admin: 11/08/16 09:28 Dose: 20 mg - Objective Vital Signs: Vital Signs Temperature 97.7 F 11/08/16 06:00 Pulse Rate 89 11/08/16 09:16 Respiratory Rate 20 11/08/16 09:16 Blood Pressure 92/56 11/08/16 09:16 O2 Sat by Pulse Oximetry (%) 94 L 11/08/16 09:15 Constitutional: Yes: Well Nourished, Calm Eyes: Yes: WNL HENT: Yes: Nasal Congestion Neck: Yes: WNL Cardiovascular: Yes: Pulse Irregular, S1, S2 Respiratory: Yes: Rales (BILATERAL CRACKLES) Gastrointestinal: Yes: Normal Bowel Sounds, Soft Extremities: Yes: WNL Edema: No Labs: CBC, BMP 11/08/16 08:20 11/08/16 08:20 INR, PTT INR 1.59 (0.82-1.09) H 11/08/16 00:50 Problem List - Problems (1) Pneumonia due to infectious organism Code(s): J18.9 - PNEUMONIA, UNSPECIFIED ORGANISM Assessment/Plan Problem List - Problems (1) Afib Code(s): I48.91 - UNSPECIFIED ATRIAL FIBRILLATION Qualifiers: Atrial fibrillation type: chronic Qualified Code(s): I48.2 - Chronic atrial fibrillation (2) CHF (congestive heart failure) Code(s): I50.9 - HEART FAILURE, UNSPECIFIED (3) COPD (chronic obstructive pulmonary disease) Code(s): J44.9 - CHRONIC OBSTRUCTIVE PULMONARY DISEASE, UNSPECIFIED (4) Hypoxia Code(s): R09.02 - HYPOXEMIA (5) Pneumonia Code(s): J18.9 - PNEUMONIA, UNSPECIFIED ORGANISM Qualifiers: Pneumonia type: due to unspecified organism Laterality: unspecified laterality Lung location: unspecified part of lung Qualified Code(s): J18.9 - Pneumonia, unspecified organism (6) Pulmonary fibrosis Code(s): J84.10 - PULMONARY FIBROSIS, UNSPECIFIED (7) HLD (hyperlipidemia) Code(s): E78.5 - HYPERLIPIDEMIA, UNSPECIFIED (8) HTN (hypertension) Code(s): I10 - ESSENTIAL (PRIMARY) HYPERTENSION (9) Hypothyroid Code(s): E03.9 - HYPOTHYROIDISM, UNSPECIFIED (10) Shortness of breath Code(s): R06.02 - SHORTNESS OF BREATH (11) Tachycardia Code(s): R00.0 - TACHYCARDIA, UNSPECIFIED 12. PULMONARY FIBROSIS Assessment/Plan ABX Per ID BD TX Prednisone O2 as needed DR RAZO
[2016-11-08 12:16] VITALS: PULSE 83
--- NOTE | 2016-11-08 16:11 | EKG ---
Test Reason : Blood Pressure : / mmHG Vent. Rate : 092 BPM Atrial Rate : 375 BPM P-R Int : 000 ms QRS Dur : 088 ms QT Int : 352 ms P-R-T Axes : 000 -07 -26 degrees QTc Int : 435 ms ATRIAL FIBRILLATION NONSPECIFIC T WAVE ABNORMALITY ABNORMAL ECG WHEN COMPARED WITH ECG OF 08-NOV-2016 01:08, NO SIGNIFICANT CHANGE WAS FOUND Confirmed by JOHN NEVAREZ MD ([id number]) on 11/08/2016 4:11:08 PM Referred By: eNreyda FARR Confirmed By:JOHN NEVAREZ MD
--- NOTE | 2016-11-08 16:15 | EKG ---
Test Reason : Blood Pressure : / mmHG Vent. Rate : 092 BPM Atrial Rate : 441 BPM P-R Int : 000 ms QRS Dur : 094 ms QT Int : 356 ms P-R-T Axes : 000 -12 -21 degrees QTc Int : 440 ms ATRIAL FIBRILLATION MINIMAL VOLTAGE CRITERIA FOR LVH, MAY BE NORMAL VARIANT NONSPECIFIC T WAVE ABNORMALITY ABNORMAL ECG WHEN COMPARED WITH ECG OF 03-NOV-2016 12:05, NO SIGNIFICANT CHANGE WAS FOUND Confirmed by ROQUE LINN, JOHN ([id number]) on 11/08/2016 4:14:37 PM Referred By: Confirmed By:JOHN NEVAREZ MD
--- NOTE | 2016-11-12 02:59 | HOSP ---
Subjective - Review of Symptoms Events since last encounter: on nurse called patient was given a levofloxacin and after that she complains of itching in her throat Patient was seen and examined denies sob, denies difficulty in breathing, swelling on face, or in oral cavity , denies rashes on body pr 99 bp 110/96 spo2 95 chest b/l air entry present cvs s1s2 normal oral cavity no erythema or swelling less likely from Levaquin allergic reaction Plan give benadry 25 mg po Physical Examination Vital Signs: Vital Signs Temperature 97.7 F 11/08/16 06:00 Pulse Rate 83 11/08/16 11:50 Respiratory Rate 20 11/08/16 09:16 Blood Pressure 92/56 11/08/16 09:16 O2 Sat by Pulse Oximetry (%) 92 L 11/08/16 11:50 Labs: CBC, BMP 11/08/16 08:20 11/08/16 08:20 Visit type - Emergency Visit Emergency Visit: Yes ED Registration Date: 11/03/16 Care time: The patient presented to the Emergency Department on the above date and was hospitalized for further evaluation of their emergent condition. - New Patient This patient is new to me today: Yes Date on this admission: 11/04/16 - Critical Care Critical Care patient: No
== END 2016-11-08 14:20 | disposition home or self-care (01) | DRG 196 ==
LOC: JER 11:16 → JERBED 14:23 → J4S 15:54
PROVIDERS: ADMIT Family Medicine; ATTEND Family Medicine
DX: J84.112 Idiopathic pulmonary fibrosis (principal); J18.9 Pneumonia, unspecified organism; I48.1 Persistent atrial fibrillation; E87.2 Acidosis; Z79.01 Long term (current) use of anticoagulants; E78.5 Hyperlipidemia, unspecified; E03.9 Hypothyroidism, unspecified; I11.0 Hypertensive heart disease with heart failure; I50.9 Heart failure, unspecified
CPT/HCPCS: 36415; 36600; 71010-TC; 71250-TC; 80053; 82550; 82803; 83036; 83605; 83735; 83880; 84484; 85025; 85610; 85730; 86140; 87040; 87070; 87077; 87205; 87254; 87804; 87899; 93005; 93010; 93306-TC; 94640; 99285-25

== ENCOUNTER 2016-12-16 18:14 | Inpatient (IN) | payer BC, OTHER ==
--- NOTE | 2016-12-16 19:17 | PDOC ---
History of Present Illness - General History Source: Patient, Family (Daughter), Old Records Exam Limitations: No Limitations - History of Present Illness Initial Comments: 12/16/16 20:01 The patient is an 86 year old female, with a significant past medical history of atrial fibrillation (on Xarelto), hypertension, hyperlipidemia, hypothyroidism, CHF, COPD (on 3L-4L of home O2), pulmonary fibrosis and pneumonia (on 10 mg prednisone daily), who presents to the emergency department with worsening shortness of breath over the past 5 days. The patient was most recently seen in this ED on 11/03/2016, was diagnosed with pneumonia, was admitted and discharged home on 11/08/2016. The patients daughter is at the bedside. Over the past 5 days, the patients daughter reports worsening shortness of breath in addition to a mild nonproductive cough. The patients daughter reports that the worsening shortness of breath has resulted in an increase of home O2 from 3L to 4L. The patient denies chest pain. The patient denies fever, chills, nausea, vomiting, diarrhea or dysuria. Allergies: Levofloxacin. Past Surgical History:Cholecystectomy. Social History: Non smoker. Denies alcohol or drug use. PCP: Dr. Wing Distance Education Coordinator: Dr. Crowell Job Tracer: Dr. Werner <Sindy Parada - Last Filed: 12/16/16 22:11> - General History Source: Patient, Family, Old Records Exam Limitations: No Limitations <Haresh Villarreal - Last Filed: 12/16/16 22:26> - General Chief Complaint: Shortness of Breath Stated Complaint: SHORTNESS OF BREATH Time Seen by Provider: 12/16/16 18:29 Past History <Sindy Parada - Last Filed: 12/16/16 22:11> - Past Medical History Anemia: No Asthma: No Cancer: No Cardiac Disorders: Yes (Afib) CVA: No COPD: No (hx of pneumonia 10/2015) CHF: No Dementia: No Diabetes: No GI Disorders: No Disorders: No HTN: Yes Hypercholesterolemia: Yes Liver Disease: No Seizures: No Thyroid Disease: Yes (Hypo) Lung CA: (Lung fibrosis) - Surgical History Abdominal Surgery: No Appendectomy: No Cardiac Surgery: No Cholecystectomy: Yes Lung Surgery: No Neurologic Surgery: No Orthopedic Surgery: Yes (BUNIONECTOMY) - Psycho/Social/Smoking Cessation Hx Anxiety: No Suicidal Ideation: No Smoking Status: No Smoking History: Never smoked Have you smoked in the past 12 months: No Number of Cigarettes Smoked Daily: 0 Information on smoking cessation initiated: No Hx Alcohol Use: No Drug/Substance Use Hx: No Substance Use Type: None Hx Substance Use Treatment: No <Haresh Villarreal - Last Filed: 12/16/16 22:26> - Past Medical History Allergies/Adverse Reactions: Allergies Allergy/AdvReac Type Severity Reaction Status Date / Time levofloxacin AdvReac Itching Verified 12/16/16 18:20 Home Medications: Ambulatory Orders Levothyroxine [Synthroid -] 50 mcg PO DAILY 12/02/14 Metoprolol Tartrate [Lopressor -] 25 mg PO BID 12/02/14 Rivaroxaban [Xarelto] 20 mg PO DAILY 12/02/14 Prednisone 10 mg PO DAILY 04/08/16 Prednisone [Deltasone -] 10 mg PO DAILY 12/16/16 Review of Systems - Review of Systems Able to Perform ROS?: Yes Comments:: 12/16/16 19:52 GENERAL/CONSTITUTIONAL: No fever or chills. No weakness. HEAD, EYES, EARS, NOSE AND THROAT: No change in vision. No ear pain or discharge. No sore throat. CARDIOVASCULAR: +Shortness of breath. No chest pain. RESPIRATORY: +Cough. No wheezing or hemoptysis. GASTROINTESTINAL: No nausea, vomiting, diarrhea or constipation. GENITOURINARY: No dysuria, frequency, or change in urination. MUSCULOSKELETAL: No joint or muscle swelling or pain. No neck or back pain. SKIN: No rash. NEUROLOGIC: No headache, vertigo, loss of consciousness, or change in strength/ sensation. ENDOCRINE: No increased thirst. No abnormal weight change. HEMATOLOGIC/LYMPHATIC: No anemia, easy bleeding, or history of blood clots. ALLERGIC/IMMUNOLOGIC: No hives or skin allergy. <Sindy Parada - Last Filed: 12/16/16 22:11> *Physical Exam - Vital Signs Last Vital Signs Temp Pulse Resp BP Pulse Ox 97.9 F 128 H 24 138/82 100 12/16/16 18:18 12/16/16 19:04 12/16/16 19:00 12/16/16 19:00 12/16/16 19:05 - Physical Exam Comments: 12/16/16 21:35 GENERAL: Awake, alert, and fully oriented, in no acute distress. HEAD: No signs of trauma. EYES: PERRLA, EOMI, sclera anicteric, conjunctiva clear. ENT: Auricles normal inspection, hearing grossly normal, nares patent, oropharynx clear without exudates. Moist mucosa. NECK: Normal ROM, supple, no lymphadenopathy, JVD, or masses. LUNGS: Tachypneic. Crackles at the bases, speaking in few words. Breath sounds equal. No wheezes. HEART: Regular rate and rhythm, normal S1 and S2, no murmurs, rubs or gallops. ABDOMEN: Soft, nontender, normoactive bowel sounds. No guarding, no rebound. No masses. EXTREMITIES: 1+ pitting edema of the bilateral lower extremities. Normal range of motion. No clubbing or cyanosis. No cords, erythema, or tenderness. NEUROLOGICAL: Cranial nerves II through XII intact. Normal speech, gait deferred. SKIN: Warm, dry, normal turgor, no rashes or lesions noted. <Sindy Parada - Last Filed: 12/16/16 22:11> - Vital Signs Last Vital Signs Temp Pulse Resp BP Pulse Ox 97.9 F 128 H 19 125/75 100 12/16/16 18:18 12/16/16 19:04 12/16/16 18:18 12/16/16 18:18 12/16/16 19:04 <Haresh Villarreal - Last Filed: 12/16/16 22:26> Heart Score/ECG Review #1 ECG reviewed & interpreted by me at: 19:10 12/16/16 20:51 afib 125, nonspecific ST and T wave abnormality, QTC 456 msec <Haresh Villarreal - Last Filed: 12/16/16 22:26> ED Treatment Course - LABORATORY CBC & Chemistry Diagram: 12/16/16 20:00 12/16/16 19:21 <Sindy Parada - Last Filed: 12/16/16 22:11> - LABORATORY CBC & Chemistry Diagram: 12/16/16 20:00 12/16/16 19:21 - RADIOLOGY Radiology Studies Ordered: Category Date Time Status CHEST X-RAY PORTABLE* [RAD] Stat Radiology 12/16/16 18:34 Ordered <CherelleHaresh - Last Filed: 12/16/16 22:26> Medical Decision Making - Critical Care Time Total Critical Care Time (minutes): 35 Critical Care Statement: The care of this patient involved high complexity decision making to prevent further life threatening deterioration of the patient 's condition and/or to evalute & treat vital organ system(s) failure or risk of failure. - Medical Decision Making 12/16/16 21:23 EXAM: RAD/CHEST X-RAY PORTABLE Reviewed By: Dr. Bairon Trotter IMPRESSION: Mild cardiomegaly and pulmonary venous congestion. Call placed to Dr. Wing at 21:40, 22:05. Referred to answering service, awaiting callback. Dr. Bailey returned call at 22:10, case discussed. <Sindy Parada - Last Filed: 12/16/16 22:11> - Medical Decision Making 12/16/16 19:17 A portion of this note was documented by scribe services under my direction. I have reviewed the details of the note, within reason, and agree with the documentation with the following case summary and management plan written by me. Patient treated in the ED. Nursing notes are reviewed and incorporated into the medical decision-making. Vital signs reviewed. Peripheral IV access obtained by the nurse, laboratory studies are drawn and sent, reviewed and interpreted by myself. Vital Signs Temp Pulse Resp BP Pulse Ox 97.9 F 128 H 19 125/75 100 12/16/16 18:18 12/16/16 19:04 12/16/16 18:18 12/16/16 18:18 12/16/16 19:04 86-year-old female with history of atrial fibrillation on several toe, hypertension, hyperlipidemia, hypothyroidism, pneumonia, pulmonary fibrosis,? CHF presents with shortness of breath that occurred last several days. The patient was recently discharged several weeks ago for pneumonia. She reported feeling better but notices symptoms worsening. She has a mild cough but denies any productive cough. Denies fevers. Reports that she's been increasingly more short of breath. Baseline she's at 3 L nasal cannula but now has increased to 4 L. She has had increased dyspnea on exertion and increased lower extremity edema. Denies chest pain. The patient's different diagnosis includes worsening pulmonary fibrosis, congestive heart failure, pneumonia. The patient is short of breath and hypoxic , so the patient was placed on BiPAP. We'll obtain chest x-ray, labs, blood cultures. Also a, the patient be admitted to the hospital. 12/16/16 22:20 Chest xray reviewed. Cardiomegaly and pulmonary vascular congestion. CBC, BMP 12/16/16 20:00 12/16/16 19:21 CMP Sodium 137 mmol/L (136-145) 12/16/16 19:21 Potassium 4.7 mmol/L (3.5-5.1) 12/16/16 19:21 Chloride 98 mmol/L (98-107) 12/16/16 19:21 Carbon Dioxide 26 mmol/L (21-32) D 12/16/16 19:21 Anion Gap 13 (8-16) 12/16/16 19:21 BUN 15 mg/dL (7-18) D 12/16/16 19:21 Creatinine 0.9 mg/dL (0.55-1.02) 12/16/16 19:21 Creat Clearance w eGFR 59.51 (>60) 12/16/16 19:21 Random Glucose 149 mg/dL (74-106) H D 12/16/16 19:21 Calcium 8.0 mg/dL (8.5-10.1) L 12/16/16 19:21 Magnesium 2.2 mg/dL (1.8-2.4) 12/16/16 19:21 Total Bilirubin 1.1 mg/dL (0.2-1.0) H D 12/16/16 19:21 AST 25 U/L (15-37) D 12/16/16 19:21 ALT 20 U/L (12-78) 12/16/16 19:21 Alkaline Phosphatase 66 U/L (45-117) 12/16/16 19:21 Creatine Kinase 34 IU/L (26-192) 12/16/16 19:21 Troponin I < 0.02 ng/ml (0.00-0.05) 12/16/16 19:21 B-Natriuretic Peptide 1229.12 pg/ml (5-450) H 12/16/16 19:21 Total Protein 6.1 g/dl (6.4-8.2) L 12/16/16 19:21 Albumin 2.7 g/dl (3.4-5.0) L 12/16/16 19:21 Likely CHF at this time. The patient is reporting feeling significant with biPAP. 40 mg IV lasix ordered. Given the soft low blood pressures, and patient will be diuresed, and the pt is on BiPAP, decision was made to admit the patient to the ICU. Case discussed with ICU BASEBOARD HEATING INSTALLER Ethel who accepts the patient. Case discussed with Dr. Bailey who accepts patient to ICU to his service. Case discussed in detail with admitting physician including history, physical exam and ancillary studies. Admitting physician has assumed care for the patient, will follow all pending diagnostics and will complete the evaluation and treatment. <Haresh Villarreal - Last Filed: 12/16/16 22:26> *DC/Admit/Observation/Transfer - Attestations Scribe Attestion: 12/16/16 19:34 Documentation prepared by Sindy Parada, acting as medical billing specialist for Haresh Villarreal MD. <Sindy Parada - Last Filed: 12/16/16 22:11> - Discharge Dispostion Admit: Yes <Haresh Villarreal - Last Filed: 12/16/16 22:26> Diagnosis at time of Disposition: Shortness of breath - Discharge Dispostion Condition at time of disposition: Guarded - Referrals Referrals: Curt Wing MD [Primary Care Provider] -
[2016-12-16 20:21] LABS: MCH 29.9 pg (25.7-33.7); MCHC 32.9 g/dl (32.0-36.0); MEAN CELL VOLUME 90.8 fl (80-96); MEAN PLT VOLUME 8.1 fl (7.5-11.1); PLATELET COUNT 327 K/MM3 (134-434); RDW 16.6 % (11.6-15.6); WHITE BLOOD COUNT 12.5 K/mm3 (4.0-10.0)
[2016-12-16 20:27] LABS: INR 3.58 (0.82-1.09); PROTHROMBIN TIME (PATIENT) 40.4 SEC (9.98-11.88)
[2016-12-16 20:29] LABS: ACTIVATED PTT 48.3 SECONDS (26.9-34.4)
[2016-12-16 21:22] LABS: ARTERIAL BLD GAS O2 SATURATION 99.1 % (90-98.9); ARTERIAL BLOOD GAS BASE EXCESS 2.2 meq/l (-2-2); ARTERIAL BLOOD GAS HCO3 25.3 meq/L (22-26); ARTERIAL BLOOD GAS pH 7.46 (7.35-7.45)
[2016-12-16 21:23] LABS: ALLENS TEST POSITIVE; ART PUNCT SITE RIGHT RADIAL; LPM/O2% 60%; METHEMOGLOBIN 0.4 % (0.4-1.5); PT. ON O2? YES
[2016-12-16 21:24] LABS: MECH. VENT. BIPAP; TYPE OF O2 BIPAP; VENT RATE 14
[2016-12-16] MEDS ORDERED: FUROSEMIDE 40 MG/4 ML INJECTABLE VIAL IVPB ONE (21:31)
[2016-12-16 21:43] LABS: PLATELET ESTIMATE ADEQUATE (NORMAL)
[2016-12-16] MEDS ORDERED: ALBUTEROL SO4 0.083% IH SOL 2.5 MG/3 ML VIAL.NEB. NEB PRN (22:59)
--- NOTE | 2016-12-16 23:37 | CONSULT ---
Consult Consult Specialty:: Pulmonary/ Critical Care Referred by:: Maciej Reason for Consultation:: shortness of breath - History of Present Illness History of Present Illness: 86 y/o woman with history of Afib (on Xarelto), HTN, hyperlipidemia, hypothyroidism, CHF, COPD (on home O2), pulmonary fibrosis (on pred 10) and recent PNA who presented to ED with dyspnea. Briefly, pt recently admitted from 11/03-11/08 with pneumonia. She was treated and symptoms resolved and she was d/cd home. Per daughter, over the past 5 days pt has had worsening SOB and a mild non-productive cough. She has had to uptitrate her home O2 from 3 to 4 or 5L. Pt denied fever, chills, chest pain, nausea/ vomiting/ diarrhea or any dysuria. Pt presented to ED on 12/16. In the ED, VS: T 97.9, HR 128, RR 24, BP 138/82, O2 100% on NC. Labs were notable for WBC 12, INR 3s, BNP 1229. Exam was notable for bi-basilar crackles and pitting LE edema.CXR showed pleural effusions. She was trialed on bipap for tachypena and work of breathing which was well tolerated and she was given lasix. Pt was transferred to ICU for further monitoring. Pt arrived in ICU on 50% venti mask satting 100% with minimal work of breathing , no accessory muscle use. Current Medications Albuterol Sulfate (Ventolin 0.083% Nebulizer Soln -) 1 amp NEB Q4H PRN PRN Reason: SHORT OF BREATH/WHEEZING Furosemide (Lasix Injection -) 40 mg IVPB DAILY [facility] Levothyroxine Sodium (Synthroid -) 50 mcg PO AM [facility] Methylprednisolone Sodium Succinate (Solu-Medrol -) 60 mg IVPB Q6H [facility] Last Admin: 12/16/16 23:55 Dose: 60 mg Metoprolol Tartrate (Lopressor -) 25 mg PO BID [facility] Rivaroxaban (Xarelto -) 20 mg PO DAILY [facility] - History Source History Provided By: Patient, Medical Record - Past Medical History Cardio/Vascular: Yes: HTN, Hyperlipdemia Pulmonary: Yes: COPD, Pulmonary Fibrosis Hepatobiliary: Yes: Cholelithiasis Endocrine: Yes: Hypothyroidism - Past Surgical History Past Surgical History: Yes: Cholecystectomy - Alcohol/Substance Use Hx Alcohol Use: No - Smoking History Smoking history: Never smoked Have you smoked in the past 12 months: No Aproximately how many cigarettes per day: 0 Home Medications - Allergies Allergies/Adverse Reactions: Allergies Allergy/AdvReac Type Severity Reaction Status Date / Time levofloxacin AdvReac Itching Verified 12/16/16 18:20 - Home Medications Home Medications: Ambulatory Orders Levothyroxine [Synthroid -] 50 mcg PO DAILY 12/02/14 Metoprolol Tartrate [Lopressor -] 25 mg PO BID 12/02/14 Rivaroxaban [Xarelto] 20 mg PO DAILY 12/02/14 Prednisone 10 mg PO DAILY 04/08/16 Prednisone [Deltasone -] 10 mg PO DAILY 12/16/16 Review of Systems - Review of Systems Constitutional: denies: Chills, Fever Respiratory: reports: Cough, SOB Genitourinary: denies: Dysuria Physical Exam Vital Signs: Vital Signs Temperature 97.9 F 12/16/16 18:18 Pulse Rate 108 H 12/16/16 20:56 Respiratory Rate 26 H 12/16/16 20:56 Blood Pressure 103/82 12/16/16 20:56 O2 Sat by Pulse Oximetry (%) 98 12/16/16 20:56 HENT: Yes: Normocephalic Neck: Yes: Supple Cardiovascular: Yes: Pulse Irregular Respiratory: Yes: CTA Bilaterally, On Venti-Mask. No: Accessory Muscle Use, Rhonchi, Wheezes Gastrointestinal: Yes: Normal Bowel Sounds, Soft. No: Distention, Tenderness Extremities: Yes: WNL Edema: LLE: 1+, RLE: 1+ Peripheral Pulses WNL: Yes Neurological: Yes: WNL, Alert, Oriented. No: Weakness Labs: CBCD WBC 12.5 K/mm3 (4.0-10.0) H 12/16/16 20:00 RBC 4.54 M/mm3 (3.60-5.2) 12/16/16 20:00 Hgb 13.6 GM/dL (10.7-15.3) D 12/16/16 20:00 Hct 41.2 % (32.4-45.2) 12/16/16 20:00 MCV 90.8 fl (80-96) 12/16/16 20:00 MCHC 32.9 g/dl (32.0-36.0) 12/16/16 20:00 RDW 16.6 % (11.6-15.6) H 12/16/16 20:00 Plt Count 327 K/MM3 (134-434) 12/16/16 20:00 MPV 8.1 fl (7.5-11.1) 12/16/16 20:00 CMP Sodium 137 mmol/L (136-145) 12/16/16 19:21 Potassium 4.7 mmol/L (3.5-5.1) 12/16/16 19:21 Chloride 98 mmol/L (98-107) 12/16/16 19:21 Carbon Dioxide 26 mmol/L (21-32) D 12/16/16 19:21 Anion Gap 13 (8-16) 12/16/16 19:21 BUN 15 mg/dL (7-18) D 12/16/16 19:21 Creatinine 0.9 mg/dL (0.55-1.02) 12/16/16 19:21 Creat Clearance w eGFR 59.51 (>60) 12/16/16 19:21 Calcium 8.0 mg/dL (8.5-10.1) L 12/16/16 19:21 Total Bilirubin 1.1 mg/dL (0.2-1.0) H D 12/16/16 19:21 AST 25 U/L (15-37) D 12/16/16 19:21 ALT 20 U/L (12-78) 12/16/16 19:21 Alkaline Phosphatase 66 U/L (45-117) 12/16/16 19:21 Total Protein 6.1 g/dl (6.4-8.2) L 12/16/16 19:21 Albumin 2.7 g/dl (3.4-5.0) L 12/16/16 19:21 Troponin, BNP 12/16/16 19:21 Troponin I < 0.02 B-Natriuretic Peptide 1229.12 H Imaging - Results Chest X-ray: Report Reviewed, Image Reviewed Problem List - Problems (1) Shortness of breath Code(s): R06.02 - SHORTNESS OF BREATH (2) Afib Code(s): I48.91 - UNSPECIFIED ATRIAL FIBRILLATION Qualifiers: Atrial fibrillation type: chronic Qualified Code(s): I48.2 - Chronic atrial fibrillation (3) CHF (congestive heart failure) Code(s): I50.9 - HEART FAILURE, UNSPECIFIED (4) COPD (chronic obstructive pulmonary disease) Code(s): J44.9 - CHRONIC OBSTRUCTIVE PULMONARY DISEASE, UNSPECIFIED Qualifiers : COPD type: unspecified COPD Qualified Code(s): J44.9 - Chronic obstructive pulmonary disease, unspecified (5) HLD (hyperlipidemia) Code(s): E78.5 - HYPERLIPIDEMIA, UNSPECIFIED Qualifiers: Hyperlipidemia type: pure hypercholesterolemia Qualified Code(s): E78.00 - Pure hypercholesterolemia, unspecified; E78.0 - Pure hypercholesterolemia (6) HTN (hypertension) Code(s): I10 - ESSENTIAL (PRIMARY) HYPERTENSION Qualifiers: Hypertension type: essential hypertension Qualified Code(s): I10 - Essential (primary) hypertension (7) Hypothyroid Code(s): E03.9 - HYPOTHYROIDISM, UNSPECIFIED Qualifiers: Hypothyroidism type: unspecified Qualified Code(s): E03.9 - Hypothyroidism, unspecified (8) Pulmonary fibrosis Code(s): J84.10 - PULMONARY FIBROSIS, UNSPECIFIED Assessment/Plan Assessment/Plan: 86 y/o woman with history of Afib (on Xarelto), HTN, hyperlipidemia, hypothyroidism, CHF, COPD (on home O2), pulmonary fibrosis (on pred 10) and recent PNA who presented to ED with 5 days of dyspnea found to have b/l pleural effusions and elevated BNP, some symptomatic improvement on bipap, now transferred to ICU for further monitoring. Pulm: COPD and pulmonary fibrosis on home O2 and baseline pred 10, recently treated for PNA now returns with worsening dyspnea and cough with mild leukocytosis. Imaging with vascular congestion +/- LLL process - effusion vs consolidation. Differential diagnosis includes CHF exacerbation vs. COPD exacerbation vs exacerbation of pulmonary fibrosis or progression of disease, also cannot r/o PNA though given degree of improvement with lasix and bipap and without abx thus far, infection seems less likely -continue bipap as needed, tolerating vent mask currently -methylpred for possible exacerbation -nebs -gentine diuresis as pressure tolerates for possible component of CHF CV: HTN, CHF, Afib on AC; now presenting with SOB, cannot r/o possible cardiac component -daniel diuresis as BP permits -continue home anti-htn -resume anticoagulation as appropriate -trend BNP ID: cannot r/o possible PNA -f/u cxl data, obtain sputum cxl if able -trend WBC, fever curve -low threshold to initiate abx: vanco/ zosyn/ azithro given recent hospitalization GI: no active issues -advance diet as tolerated -stress ulcer ppx Endo: hypothyroidism -continue synthroid PPX: -stress ulcer ppx -no SQ heparin at present given INR >3
[2016-12-16] MEDS ORDERED: methylPREDNISolone NA SUCC 40 MG/1 ML VIAL ONE (23:42)
[2016-12-16] MEDS ORDERED: FUROSEMIDE 40 MG/4 ML INJECTABLE VIAL ONE (23:43)
[2016-12-16] MEDS: methylPREDNISolone NA SUCC 125 MG/2 ML VIAL IVPB SCH (23:55)
[2016-12-17 02:00] VITALS: BMI 28.2
[2016-12-17] MEDS: methylPREDNISolone NA SUCC 125 MG/2 ML VIAL IVPB SCH ×4 (05:00→22:11)
[2016-12-17] MEDS ORDERED: LEVOTHYROXINE NA 50 MCG TABLET (FP) PO SCH (07:00)
--- NOTE | 2016-12-17 08:20 | PN ---
Physical Exam: SUBJECTIVE: Patient seen and examined at bed side. on home oxygen 3 L. patient reports leg weakness for two days. reports decreased taste and oral thrush. . denies sob, cp, n/v/d, fevers. HR irregularly irregular 100's to 110's oral trush OBJECTIVE: Vital Signs Period Temp Pulse Resp BP Sys/Osman Pulse Ox Last 24 Hr 97.9 F-98 F 105-118 18-26 102-113/66-83 90-90 GENERAL: The patient is awake, alert, and fully oriented, in no acute distress. on 3 L oxygen HEAD: Normal with no signs of trauma. EYES: PERRL, extraocular movements intact, sclera anicteric, conjunctiva clear. No ptosis. ENT: Ears normal, nares patent, oropharynx clear without exudates, + oral trush NECK: Trachea midline, full range of motion, supple. LUNGS: Breath sounds equal, clear to auscultation bilaterally, no wheezes, no crackles, no accessory muscle use. HEART: irregular irregular , rales bilateral ABDOMEN: Soft, nontender, nondistended, normoactive bowel sounds, no guarding, no rebound, no hepatosplenomegaly, no masses. EXTREMITIES: 2+ pulses, warm, well-perfused, +1 edema. NEUROLOGICAL: Cranial nerves II through XII grossly intact. Normal speech, gait not observed. PSYCH: Normal mood, normal affect. SKIN: Warm, dry, normal turgor, no rashes or lesions noted Active Medications Generic Name Dose Route Start Last Admin Trade Name Freq PRN Reason Stop Dose Admin Albuterol Sulfate 1 amp 12/16/16 22:59 Ventolin 0.083% Nebulizer Soln - NEB Q4H PRN SHORT OF BREATH/WHEEZING Furosemide 40 mg 12/17/16 10:00 Lasix Injection - IVPB DAILY GARIMA Levothyroxine Sodium 50 mcg 12/17/16 07:00 12/17/16 06:42 Synthroid - PO 50 mcg AM GARIMA Administration Methylprednisolone Sodium Succinate 60 mg 12/16/16 23:00 12/17/16 05:00 Solu-Medrol - IVPB 60 mg Q6H GARIMA Administration Metoprolol Tartrate 25 mg 12/17/16 10:00 Lopressor - PO BID GARIMA Pantoprazole Sodium 40 mg 12/17/16 10:00 Protonix - PO DAILY GARIMA Rivaroxaban 20 mg 12/17/16 10:00 Xarelto - PO DAILY [facility] ASSESSMENT/PLAN: Assessment/Plan: 86 y/o woman with history of Afib (on Xarelto), HTN, hyperlipidemia, hypothyroidism, CHF, COPD (on home O2), pulmonary fibrosis (on pred 10) and recent PNA who presented to ED with 5 days of dyspnea found to have b/l pleural effusions and elevated BNP, some symptomatic improvement on bipap, now transferred to ICU for further monitoring. Pulm: COPD and pulmonary fibrosis on home O2 and baseline pred 10, recently treated for PNA now returns with worsening dyspnea and cough with mild leukocytosis. Imaging with vascular congestion +/- LLL process - effusion vs consolidation. Differential diagnosis includes CHF exacerbation vs. COPD exacerbation vs exacerbation of pulmonary fibrosis or progression of disease, also cannot r/o PNA though given degree of improvement with lasix and bipap and without abx thus far, infection seems less likely -continue bipap as needed, tolerating vent mask currently -methylpred for possible exacerbation -nebs -gentine diuresis as pressure tolerates for possible component of CHF CV: HTN, CHF, Permanent atrial fibrillation with RVR on AC; now presenting with SOB, cannot r/o possible cardiac component -Continue Metoprolol - titrated to 50mg BID HR now 80's and 90's -Continue Xarelto -Continue Lasix IV and monitor renal function and electrolytes -trend BNP ID: cannot r/o possible PNA -f/u cxl data, obtain sputum cxl if able -trend WBC, fever curve -low threshold to initiate abx: vanco/ zosyn/ azithro given recent hospitalization Oral trush started on nystatin GI: no active issues -advance diet as tolerated -stress ulcer ppx Endo: hypothyroidism -continue synthroid check TSH inlight of afib and reports chills PPX: -stress ulcer ppx -no SQ heparin at present given INR >3 -na controlled diet -replete electrolyte as needed dispo: transfer to tele Visit type - Emergency Visit Emergency Visit: Yes ED Registration Date: 12/16/16 Care time: The patient presented to the Emergency Department on the above date and was hospitalized for further evaluation of their emergent condition. - New Patient This patient is new to me today: Yes Date on this admission: 12/17/16 - Critical Care Critical Care patient: Yes Total Critical Care Time (in minutes): 44 Critical Care Statement: The care of this patient involved high complexity decision making to prevent further life threatening deterioration of the patient 's condition and/or to evalute & treat vital organ system(s) failure or risk of failure.
--- NOTE | 2016-12-17 08:33 | CON.CARD ---
Consult Consult Specialty:: Cardiology Referred by:: ICU team, Dr. Wing Reason for Consultation:: Cardiac evaluation - History of Present Illness Chief Complaint: Shortness of breath History of Present Illness: Patient is an 86 year old female well known to me from the office with underlying history of persistent atrial fibrillation on NOAC, HTN, hypercholesterolemia, hypothyroidism, COPD and ILD/pulmonary fibrosis and pneumonia on steroids. She presented to ED with worsening shortnes of breath over the past week. She denies chest pain or palpitations. She denies paroxysmal nocturnal dyspnea or orthopnea. Denies fever or chills. Denies headache or lightheadedness. Pateint complains of mild non-productive cough. She has home O2 which was increased due to increase in shortness of breath. Cardiology consultation was called for further evaluation - History Source History Provided By: Patient, Medical Record Limitations to Obtaining History: No Limitations - Past Medical History Cardio/Vascular: Yes: AFIB, HTN, Hyperlipdemia Pulmonary: Yes: COPD, Pulmonary Fibrosis Hepatobiliary: Yes: Cholelithiasis Endocrine: Yes: Hypothyroidism - Past Surgical History Past Surgical History: Yes: Cholecystectomy - Alcohol/Substance Use Hx Alcohol Use: No - Smoking History Smoking history: Never smoked Have you smoked in the past 12 months: No Aproximately how many cigarettes per day: 0 Home Medications - Allergies Allergies/Adverse Reactions: Allergies Allergy/AdvReac Type Severity Reaction Status Date / Time levofloxacin AdvReac Itching Verified 12/16/16 18:20 - Home Medications Home Medications: Ambulatory Orders Levothyroxine [Synthroid -] 50 mcg PO DAILY 12/02/14 Metoprolol Tartrate [Lopressor -] 25 mg PO BID 12/02/14 Rivaroxaban [Xarelto] 20 mg PO DAILY 12/02/14 Prednisone 10 mg PO DAILY 04/08/16 Prednisone [Deltasone -] 10 mg PO DAILY 12/16/16 Review of Systems - Review of Systems Constitutional: denies: Chills, Fever Cardiovascular: reports: Shortness of Breath. denies: Chest Pain, Palpitations Respiratory: reports: Cough, SOB, SOB on Exertion. denies: Hemoptysis, Orthopnea, PND Gastrointestinal: denies: Abdominal Pain, Constipation, Diarrhea, Melena, Nausea , Rectal Bleeding, Vomiting Genitourinary: denies: Dysuria Neurological: denies: Dizziness, Headache, Numbness, Seizure, Syncope Vital Signs: Vital Signs Temperature 97.9 F 12/17/16 06:00 Pulse Rate 110 H 12/17/16 06:00 Respiratory Rate 20 12/17/16 06:00 Blood Pressure 106/70 12/17/16 06:00 O2 Sat by Pulse Oximetry (%) 90 L 12/17/16 02:02 Neck: Yes: Supple Respiratory: Yes: Diminished, On Venti-Mask Gastrointestinal: Yes: Normal Bowel Sounds, Soft. No: Tenderness Cardiovascular: Yes: Tachycardia, Pulse Irregular JVD: No Carotid Bruit: No PMI: Non-Displaced Heart Sounds: Yes: S1, S2 Murmur: No: Systolic Murmur, Diastolic Murmur Edema: No - Other Data Labs, Other Data: INR, PTT INR 3.58 (0.82-1.09) H D 12/16/16 19:21 Laboratory Results - last 24 hr 12/16/16 12/16/16 12/16/16 19:21 19:21 20:00 WBC 12.5 H RBC 4.54 Hgb 13.6 D Hct 41.2 MCV 90.8 MCHC 32.9 RDW 16.6 H Plt Count 327 MPV 8.1 Neutrophils % 84.0 H Lymphocytes % 6.0 L D Monocytes % 4.0 Band Neutrophils 4.0 Myelocytes 2 Differential Comment Manual diff done Platelet Estimate Adequate Morphology Comment Slide scanned INR 3.58 H D PTT (Actin FS) 48.3 H D Puncture Site ABG pH ABG pCO2 at Pt Temp ABG pO2 at Pt Temp ABG HCO3 ABG O2 Sat (Measured) ABG O2 Content ABG Base Excess Richy Test Carboxyhemoglobin Methemoglobin O2 Delivery Device Oxygen Flow Rate Vent Mode Vent Rate Mechanical Rate PEEP Pressure Support Vent Sodium 137 Potassium 4.7 Chloride 98 Carbon Dioxide 26 D Anion Gap 13 BUN 15 D Creatinine 0.9 Creat Clearance w eGFR 59.51 Random Glucose 149 H D Calcium 8.0 L Magnesium 2.2 Total Bilirubin 1.1 H D AST 25 D ALT 20 Alkaline Phosphatase 66 Creatine Kinase 34 Troponin I < 0.02 B-Natriuretic Peptide 1229.12 H Total Protein 6.1 L Albumin 2.7 L 12/16/16 21:10 WBC RBC Hgb Hct MCV MCHC RDW Plt Count MPV Neutrophils % Lymphocytes % Monocytes % Band Neutrophils Myelocytes Differential Comment Platelet Estimate Morphology Comment INR PTT (Actin FS) Puncture Site Right radial ABG pH 7.46 H ABG pCO2 at Pt Temp 36.0 ABG pO2 at Pt Temp 122.0 H D ABG HCO3 25.3 ABG O2 Sat (Measured) 99.1 H ABG O2 Content 17.6 ABG Base Excess 2.2 H Richy Test Positive Carboxyhemoglobin 2.3 H Methemoglobin 0.4 O2 Delivery Device Bipap Oxygen Flow Rate 60% Vent Mode S/t Vent Rate 14 Mechanical Rate Bipap PEEP Pressure Support Vent 12/6 Sodium Potassium Chloride Carbon Dioxide Anion Gap BUN Creatinine Creat Clearance w eGFR Random Glucose Calcium Magnesium Total Bilirubin AST ALT Alkaline Phosphatase Creatine Kinase Troponin I B-Natriuretic Peptide Total Protein Albumin Atrial fibrillation with rapid ventricular response Imaging - Results Chest X-ray: Report Reviewed (Mild cardiomegaly and congestion) EKG: Report Reviewed Problem List - Problems (1) Shortness of breath Code(s): R06.02 - SHORTNESS OF BREATH (2) Afib Code(s): I48.91 - UNSPECIFIED ATRIAL FIBRILLATION Qualifiers: Atrial fibrillation type: permanent Qualified Code(s): I48.2 - Chronic atrial fibrillation (3) CHF (congestive heart failure) Code(s): I50.9 - HEART FAILURE, UNSPECIFIED Qualifiers: Congestive heart failure type: diastolic Congestive heart failure chronicity: acute on chronic Qualified Code(s): I50.33 - Acute on chronic diastolic (congestive) heart failure (4) COPD (chronic obstructive pulmonary disease) Code(s): J44.9 - CHRONIC OBSTRUCTIVE PULMONARY DISEASE, UNSPECIFIED Qualifiers : COPD type: unspecified COPD Qualified Code(s): J44.9 - Chronic obstructive pulmonary disease, unspecified (5) HLD (hyperlipidemia) Code(s): E78.5 - HYPERLIPIDEMIA, UNSPECIFIED Qualifiers: Hyperlipidemia type: pure hypercholesterolemia Qualified Code(s): E78.00 - Pure hypercholesterolemia, unspecified; E78.0 - Pure hypercholesterolemia (6) HTN (hypertension) Code(s): I10 - ESSENTIAL (PRIMARY) HYPERTENSION Qualifiers: Hypertension type: essential hypertension Qualified Code(s): I10 - Essential (primary) hypertension (7) Hypothyroid Code(s): E03.9 - HYPOTHYROIDISM, UNSPECIFIED Qualifiers: Hypothyroidism type: unspecified Qualified Code(s): E03.9 - Hypothyroidism, unspecified (8) Pulmonary fibrosis Code(s): J84.10 - PULMONARY FIBROSIS, UNSPECIFIED Assessment/Plan 1. ILD/pulmonary fibrosis with shortness of breath - ?acute on chronic LV diastolic failure with congestion on CXR 2. Permanent atrial fibrillation with RVR 3. HTN 4. Hypercholesterolemia 5. Hypothyroidism PLAN: 1. Continue Metoprolol - titrate to control HR 2. Continue Xarelto 3. Continue Lasix IV and monitor renal function and electrolytes 4. Continue steroids and pulmonary follow up 5. Continue Synthroid May transfer to telemetry cardiac stand point Further plans are to follow Santy Werner MD
[2016-12-17 08:41] LABS: MCH 30.4 pg (25.7-33.7); MCHC 33.5 g/dl (32.0-36.0); MEAN CELL VOLUME 90.7 fl (80-96); MEAN PLT VOLUME 7.4 fl (7.5-11.1); PLATELET COUNT 285 K/MM3 (134-434); RDW 16.6 % (11.6-15.6); WHITE BLOOD COUNT 10.8 K/mm3 (4.0-10.0)
[2016-12-17 09:00] LABS: ALBUMIN 2.8 g/dl (3.4-5.0); CALCIUM 8.4 mg/dL (8.5-10.1); TOT PROT 6.2 g/dl (6.4-8.2)
--- NOTE | 2016-12-17 09:00 | PN ---
Progress Note (short form) - Note Progress Note: ID consult dictated imp/reccd 86 year old female with Pulmonary fibrosis/CHF/afib, recently hospitalized 11/03 to 11/08 with possible pneumonia, chf, afib treated with rocephin for 5 days, discharged on ceftin and steroid taper, now readmitted with SOB increasing over last several days and generalized fatigue no fevers or chills currently taking 10 mg prednisone daily lives alone has noted pedal edema (new for her) since discharge from hospital in October minimal cough no travel no sick contacts no pets was in [place] for 2 months with kids jul/aug no travel since no construction on her home having difficulty climbing stairs now suspect CHF worsening underlying pulmonary fibrosis no evidence of acute infectious process agree with surveillance blood cultures screen for influenza urinary antigens consider repeat chest ct treat thrush with nystatin d/w Dr Wing
--- NOTE | 2016-12-17 09:08 | HP ---
Admitting History and Physical - Admission History of Present Illness: 86 y/o woman with history of Afib (on Xarelto), HTN, hyperlipidemia, hypothyroidism, CHF, COPD (on home O2), pulmonary fibrosis (on pred 10) and recent PNA who presented to ED with dyspnea. Briefly, pt recently admitted from 11/03-11/08 with pneumonia. She was treated and symptoms resolved and she was d/cd home. Per daughter, over the past 5 days pt has had worsening SOB and a mild non-productive cough. She has had to uptitrate her home O2 from 3 to 4 or 5L. Pt denied fever, chills, chest pain, nausea/ vomiting/ diarrhea or any dysuria. Pt presented to ED on 12/16. - Past Medical History Cardiovascular: Yes: AFIB, HTN, Hyperlipdemia Pulmonary: Yes: COPD, Pulmonary Fibrosis Hepatobiliary: Yes: Cholelithiasis Endocrine: Yes: Hypothyroidism - Past Surgical History Past Surgical History: Yes: Cholecystectomy - Smoking History Smoking history: Never smoked Have you smoked in the past 12 months: No Aproximately how many cigarettes per day: 0 - Alcohol/Substance Use Hx Alcohol Use: No Home Medications - Allergies Allergies/Adverse Reactions: Allergies Allergy/AdvReac Type Severity Reaction Status Date / Time levofloxacin AdvReac Itching Verified 12/16/16 18:20 - Home Medications Home Medications: Ambulatory Orders Levothyroxine [Synthroid -] 50 mcg PO DAILY 12/02/14 Metoprolol Tartrate [Lopressor -] 25 mg PO BID 12/02/14 Rivaroxaban [Xarelto] 20 mg PO DAILY 12/02/14 Prednisone 10 mg PO DAILY 04/08/16 Prednisone [Deltasone -] 10 mg PO DAILY 12/16/16 Review of Systems - Review of Systems Cardiovascular: reports: Palpitations. denies: Chest Pain Respiratory: reports: Cough, SOB, SOB on Exertion Gastrointestinal: denies: Abdominal Pain Musculoskeletal: denies: Back Pain Physical Examination Vital Signs: Vital Signs Temperature 97.9 F 12/17/16 06:00 Pulse Rate 110 H 12/17/16 06:00 Respiratory Rate 20 12/17/16 06:00 Blood Pressure 106/70 12/17/16 06:00 O2 Sat by Pulse Oximetry (%) 90 L 12/17/16 02:02 Cardiovascular: Yes: Tachycardia, Pulse Irregular, S1, S2 Respiratory: Yes: Rales Gastrointestinal: Yes: Normal Bowel Sounds, Soft. No: Tenderness Edema: No Labs: CBC, BMP 12/17/16 08:00 12/17/16 08:00 Imaging - Results X-ray: Report Reviewed Problem List - Problems (1) Afib Assessment/Plan: AC MONITOR INR Laboratory Tests 12/16/16 19:21 INR 3.58 H D Code(s): I48.91 - UNSPECIFIED ATRIAL FIBRILLATION Qualifiers: Atrial fibrillation type: permanent Qualified Code(s): I48.2 - Chronic atrial fibrillation (2) CHF (congestive heart failure) Assessment/Plan: IV LASIX F/U IMAGING Code(s): I50.9 - HEART FAILURE, UNSPECIFIED Qualifiers: Congestive heart failure type: diastolic Congestive heart failure chronicity: acute on chronic Qualified Code(s): I50.33 - Acute on chronic diastolic (congestive) heart failure (3) COPD (chronic obstructive pulmonary disease) Assessment/Plan: NEBS STEROIDS Code(s): J44.9 - CHRONIC OBSTRUCTIVE PULMONARY DISEASE, UNSPECIFIED Qualifiers : COPD type: unspecified COPD Qualified Code(s): J44.9 - Chronic obstructive pulmonary disease, unspecified Assessment/Plan A/E COPD CHF AFIB PLAN IV STEROIDS IV LASIX RATE CONTROL
[2016-12-17] MEDS ORDERED: METOPROLOL TARTRATE 50 MG TABLET (FP) PO SCH (10:00)
[2016-12-17] MEDS ORDERED: METOPROLOL TARTRATE 25 MG TABLET (FP) PO SCH (10:00)
[2016-12-17] MEDS ORDERED: PANTOPRAZOLE 40 MG TABLET (FP) PO SCH (10:00)
[2016-12-17] MEDS ORDERED: FUROSEMIDE 40 MG/4 ML INJECTABLE VIAL IVPB SCH (10:00)
[2016-12-17] MEDS ORDERED: RIVAROXABAN 20 MG TABLET PO SCH (10:00)
[2016-12-17] MEDS ORDERED: HEPARIN NA (PORCINE) 5,000 UNITS/ML 1ML VIAL SQ SCH (10:00)
--- NOTE | 2016-12-17 10:18 | CONS ---
DATE OF CONSULTATION: DATE OF DICTATION: 12/17/2016 REQUESTING PHYSICIAN: Curt Wing MD HISTORY OF PRESENT ILLNESS: This is an 86-year-old woman with a past medical history of pulmonary fibrosis, congestive heart failure, atrial fibrillation, who was recently in the hospital from the to the . She was treated at the time with Rocephin for a possible pneumonia. She was treated as well with diuretics for possible heart failure. She subjectively improved, and she was discharged on the on a steroid taper and Ceftin. She is now readmitted with increasing shortness of breath over the last several days. She reports she was doing okay after discharge for several weeks. Then, several days ago, she did note that she had, which was new for her, that she had pedal edema by the end of the day, which she had never had before. After her discharge, she noted this on a daily basis. Over the last several days, she has had increasing fatigue, increasing shortness of breath, difficulty climbing steps, generalized fatigue. There were no fevers or chills. Her daughter came to see her because she was complaining of the fatigue and brought her to the hospital. She has an intermittent nonproductive cough. The patient denies any fevers or chills, nausea or vomiting, diarrhea or dysuria. She uses home oxygen 3-4 L. ALLERGIES: She is allergic to LEVAQUIN, which on her last admission made her throat scratchy. SURGICAL HISTORY: Notable for cholecystectomy. PAST MEDICAL HISTORY: Notable for atrial fibrillation (on Xarelto), hypertension, hyperlipidemia, hypothyroidism, CHF, COPD, pulmonary fibrosis. She says she has had 2 episodes of pneumonia in the past, as well. She has a history of mild diastolic heart failure. MEDICATIONS: As an outpatient include Synthroid, metoprolol, Xarelto. She was on 10 mg of prednisone at the time of admission. FAMILY HISTORY: Noncontributory. SOCIAL HISTORY: She lives alone. She was a homemaker. She has 5 children. She lives here in [place] in a house by herself. She has no pets. There has been no construction on the house. There has been no recent travel. She did go to [place] and stay with her kids for July and August. She is up to date on vaccines. REVIEW OF SYSTEMS: Notable for this increasing fatigue. She lives in a split-level and is having trouble climbing up the stairs. She has no abdominal pain. There is no constipation. She has no change in her bowel habits or dysuria. PHYSICAL EXAMINATION Vital signs: Her temperature is 97.9 pulse 110, blood pressure 106/70, respiratory rate 20. HEENT: She is normocephalic. Her eyes are anicteric. She has dentures Neck: Supple. She has thrush. She states it was much worse when she went home and is actually improving. Lungs: Have crackles at both bases. Heart: Is irregularly irregular. Abdomen: Soft, nontender. Extremities: She has trace pedal edema bilaterally. Both her legs are slightly ecchymotic. She says that she banged the right ankle where she has a bruise, and they are somewhat discolored. DIAGNOSTIC DATA: Her white count is 10.8 this morning, hemoglobin 14, platelets are 285. INR 3.5. BUN 16, creatinine 1. LFTs are normal. Chest x-ray reveals mild cardiomegaly and pulmonary venous congestion. SUMMARY: This is an 86-year-old woman, who I suspect has congestive heart failure with new pedal edema in the setting of worsening underlying pulmonary fibrosis. She has no evidence at this time of an acute infectious process. I would agree with surveillance blood cultures, would screen her for influenza and obtain urinary antigens. I would consider a repeat chest CT. This was discussed with Dr. Wing. Further recommendations to follow. I would treat her with nystatin as well to treat her thrush. MARYAN ZAVALA M.D. [id number]
--- NOTE | 2016-12-17 11:38 | EKG ---
Test Reason : Blood Pressure : / mmHG Vent. Rate : 125 BPM Atrial Rate : 070 BPM P-R Int : 000 ms QRS Dur : 076 ms QT Int : 316 ms P-R-T Axes : 000 -02 012 degrees QTc Int : 456 ms POOR DATA QUALITY, INTERPRETATION MAY BE ADVERSELY AFFECTED ATRIAL FIBRILLATION WITH RAPID VENTRICULAR RESPONSE NONSPECIFIC ST AND T WAVE ABNORMALITY ABNORMAL ECG Confirmed by MEGHANN REARDON MD ([id number]) on 12/17/2016 11:38:05 AM Referred By: Confirmed By:MEGHANN REARDON MD
--- NOTE | 2016-12-17 11:52 | PN ---
Teaching Attending Note Name of Resident: Fiorella Lovell ATTENDING PHYSICIAN STATEMENT I saw and evaluated the patient. I reviewed the resident's note and discussed the case with the resident. I agree with the resident's findings and plan as documented. SUBJECTIVE: Pt seen and examined in the ICU. Feels very weak. Breathing about the same. Did not require BiPAP. OBJECTIVE: Last Vital Signs Temp Pulse Resp BP Pulse Ox 98 F 123 H 18 107/65 93 L 12/17/16 10:00 12/17/16 10:20 12/17/16 10:00 12/17/16 10:00 12/17/16 10:20 Intake & Output 12/14/16 12/15/16 12/16/16 12/17/16 23:59 23:59 23:59 23:59 Weight 125 lb 162 lb 7.691 oz Gen: mildly tachypneic at rest Heart: tachycardic, irregular Lung: bibasilar coarse and fine rales Abd: soft, nontender Ext: distal edema CBC, BMP 12/17/16 08:00 12/17/16 08:00 Active Medications Albuterol Sulfate (Ventolin 0.083% Nebulizer Soln -) 1 amp NEB Q4H PRN PRN Reason: SHORT OF BREATH/WHEEZING Last Admin: 12/17/16 10:15 Dose: 1 amp Furosemide (Lasix Injection -) 40 mg IVPB DAILY [facility] Last Admin: 12/17/16 10:18 Dose: 40 mg Levothyroxine Sodium (Synthroid -) 50 mcg PO AM [facility] Last Admin: 12/17/16 06:42 Dose: 50 mcg Methylprednisolone Sodium Succinate (Solu-Medrol -) 60 mg IVPB Q6H [facility] Last Admin: 12/17/16 10:17 Dose: 60 mg Metoprolol Tartrate (Lopressor -) 50 mg PO BID [facility] Last Admin: 12/17/16 10:18 Dose: 50 mg Nystatin (Nystatin Oral Suspension -) 500,000 units PO Q6HPO [facility] Pantoprazole Sodium (Protonix -) 40 mg PO DAILY [facility] Last Admin: 12/17/16 10:18 Dose: 40 mg Rivaroxaban (Xarelto -) 20 mg PO DAILY [facility] Last Admin: 12/17/16 10:17 Dose: 20 mg ASSESSMENT AND PLAN: Acute on Chronic Hypoxic Respiratory Failure Interstitial Lung Disease Acute on Chronic LV Diastolic Heart Failure Atrial Fibrillation with RVR HTN Hypercholesterolemia Hypothyroidism - continue lasix - monitor urine output, creatinine - O2 to keep SPo2 >90% - BiPAP as needed - rate control - continue anticoagulation - empiric medrol for now - inhaled bronchodilators - can monitor on telemetry 1. ILD/pulmonary fibrosis with shortness of breath - ?acute on chronic LV diastolic failure with congestion on CXR 2. Permanent atrial fibrillation with RVR 3. HTN 4. Hypercholesterolemia 5. Hypothyroidism PLAN: 1. Continue Metoprolol - titrate to control HR 2. Continue Xarelto 3. Continue Lasix IV and monitor renal function and electrolytes 4. Continue steroids and pulmonary follow up 5. Continue Synthroid
[2016-12-17 12:04] LABS: URINE APPEARANCE CLEAR; URINE BILIRUBIN NEGATIVE (NEGATIVE); URINE BLOOD NEGATIVE (NEGATIVE); URINE COLOR STRAW; URINE GLUCOSE (UA) NEGATIVE (NEGATIVE); URINE KETONE NEGATIVE (NEGATIVE); URINE LEUK ESTERASE NEGATIVE (NEGATIVE); URINE NITRITE NEGATIVE (NEGATIVE); URINE PROTEIN NEGATIVE (NEGATIVE); URINE UROBILINOGEN NEGATIVE E.U./dl (0.2-1.0)
[2016-12-17] MEDS: NYSTATIN 500,000 UNITS/5 ML SUSPENSION PO SCH ×2 (12:19→17:35)
--- NOTE | 2016-12-17 13:22 | PN ---
Physical Exam: SUBJECTIVE: Patient seen and examined patient feels better denies nausea, vomiting, chest pain, sob. denies rigor and chills OBJECTIVE: Vital Signs Period Temp Pulse Resp BP Sys/Osman Pulse Ox Last 24 Hr 97.9 F-98 F 105-123 18-26 102-113/65-83 90-93 GENERAL: The patient is awake, alert, and fully oriented, in no acute distress. HEAD: Normal with no signs of trauma. EYES: PERRL, extraocular movements intact, sclera anicteric, conjunctiva clear. No ptosis. ENT: Ears normal, nares patent, oropharynx clear without exudates, moist mucous membranes. NECK: Trachea midline, full range of motion, supple. LUNGS: Breath sounds equal, clear to auscultation bilaterally, no wheezes, no crackles, no accessory muscle use. HEART: Regular rate and rhythm, S1, S2 without murmur, rub or gallop. ABDOMEN: Soft, nontender, nondistended, normoactive bowel sounds, no guarding, no rebound, no hepatosplenomegaly, no masses. EXTREMITIES: 2+ pulses, warm, well-perfused, no edema. NEUROLOGICAL: Cranial nerves II through XII grossly intact. Normal speech, gait not observed. PSYCH: Normal mood, normal affect. SKIN: Warm, dry, normal turgor, no rashes or lesions noted Laboratory Results - last 24 hr 12/17/16 12/17/16 12/17/16 08:00 08:00 09:10 WBC 10.8 H RBC 4.61 Hgb 14.0 Hct 41.8 MCV 90.7 MCHC 33.5 RDW 16.6 H Plt Count 285 MPV 7.4 L Sodium 138 Potassium 4.0 Chloride 96 L Carbon Dioxide 33 H D Anion Gap 9 BUN 16 Creatinine 1.0 Creat Clearance w eGFR 52.69 Random Glucose 156 H Calcium 8.4 L Total Bilirubin 1.0 AST 20 ALT 19 Alkaline Phosphatase 63 Total Protein 6.2 L Albumin 2.8 L TSH 1.64 Urine Color Urine Appearance Urine pH Ur Specific [place] Urine Protein Urine Glucose (UA) Urine Ketones Urine Blood Urine Nitrite Urine Bilirubin Urine Urobilinogen Ur Leukocyte Esterase 12/17/16 11:20 WBC RBC Hgb Hct MCV MCHC RDW Plt Count MPV Sodium Potassium Chloride Carbon Dioxide Anion Gap BUN Creatinine Creat Clearance w eGFR Random Glucose Calcium Total Bilirubin AST ALT Alkaline Phosphatase Total Protein Albumin TSH Urine Color Straw Urine Appearance Clear Urine pH 6.0 Ur Specific [place] 1.006 Urine Protein Negative Urine Glucose (UA) Negative Urine Ketones Negative Urine Blood Negative Urine Nitrite Negative Urine Bilirubin Negative Urine Urobilinogen Negative Ur Leukocyte Esterase Negative Active Medications Generic Name Dose Route Start Last Admin Trade Name Freq PRN Reason Stop Dose Admin Albuterol Sulfate 1 amp 12/16/16 22:59 12/17/16 10:15 Ventolin 0.083% Nebulizer Soln - NEB 1 amp Q4H PRN Administration SHORT OF BREATH/WHEEZING Furosemide 40 mg 12/17/16 10:00 12/17/16 10:18 Lasix Injection - IVPB 40 mg DAILY GARIMA Administration Levothyroxine Sodium 50 mcg 12/17/16 07:00 12/17/16 06:42 Synthroid - PO 50 mcg AM GARIMA Administration Methylprednisolone Sodium Succinate 60 mg 12/16/16 23:00 12/17/16 10:17 Solu-Medrol - IVPB 60 mg Q6H GARIMA Administration Metoprolol Tartrate 50 mg 12/17/16 10:00 12/17/16 10:18 Lopressor - PO 50 mg BID GARIMA Administration Nystatin 500,000 units 12/17/16 12:00 12/17/16 12:19 Nystatin Oral Suspension - PO 500,000 units Q6HPO GARIMA Administration Pantoprazole Sodium 40 mg 12/17/16 10:00 12/17/16 10:18 Protonix - PO 40 mg DAILY GARIMA Administration Rivaroxaban 20 mg 12/17/16 10:00 12/17/16 10:17 Xarelto - PO 20 mg DAILY GARIMA Administration ASSESSMENT/PLAN:
[2016-12-17] MEDS ORDERED: ALBUTEROL SO4 0.083% IH SOL 2.5 MG/3 ML VIAL.NEB. NEB PRN (19:31)
[2016-12-17] MEDS: METOPROLOL TARTRATE 50 MG TABLET (FP) PO SCH (22:11)
[2016-12-18] MEDS: NYSTATIN 500,000 UNITS/5 ML SUSPENSION PO SCH ×4 (00:28→18:07)
[2016-12-18] MEDS: methylPREDNISolone NA SUCC 125 MG/2 ML VIAL IVPB SCH ×4 (05:30→21:31)
[2016-12-18 05:59] LABS: MCH 29.8 pg (25.7-33.7); MEAN CELL VOLUME 90.5 fl (80-96); MEAN PLT VOLUME 7.9 fl (7.5-11.1); PLATELET COUNT 336 K/MM3 (134-434); RDW 16.5 % (11.6-15.6); WHITE BLOOD COUNT 19.1 K/mm3 (4.0-10.0)
[2016-12-18 06:17] LABS: INR 1.73 (0.82-1.09); PROTHROMBIN TIME (PATIENT) 19.2 SEC (9.98-11.88)
[2016-12-18 06:29] LABS: CALCIUM 8.5 mg/dL (8.5-10.1)
[2016-12-18] MEDS: METOPROLOL TARTRATE 50 MG TABLET (FP) PO SCH ×4 (06:39→21:30)
[2016-12-18] MEDS ORDERED: LEVOTHYROXINE NA 50 MCG TABLET (FP) PO SCH (07:00)
--- NOTE | 2016-12-18 07:45 | PN ---
Progress Note (short form) - Note Progress Note: Chief Complaint: Events noted, notes reviewed, dyspnea persists but improving, denies any chest pain History of Present Illness: Seen and examined in the ICU. Events noted, notes reviewed, dyspnea persists but improving, denies any chest pain Echocardiography performed 11/05 revealed normal LV size and function, LA dilatation, mild Mr and moderate TR with RVSP of 30-40 mmHg Medications: Current Medications Albuterol Sulfate (Ventolin 0.083% Nebulizer Soln -) 1 amp NEB Q4H PRN PRN Reason: SHORT OF BREATH/WHEEZING Furosemide (Lasix Injection -) 40 mg IVPB DAILY [facility] Levothyroxine Sodium (Synthroid -) 50 mcg PO AM [facility] Last Admin: 12/18/16 06:26 Dose: 50 mcg Methylprednisolone Sodium Succinate (Solu-Medrol -) 60 mg IVPB Q6H [facility] Last Admin: 12/18/16 05:30 Dose: 60 mg Metoprolol Tartrate (Lopressor -) 50 mg PO BID [facility] Last Admin: 12/18/16 06:39 Dose: 50 mg Nystatin (Nystatin Oral Suspension -) 500,000 units PO Q6HPO [facility] Last Admin: 12/18/16 06:27 Dose: 500,000 units Pantoprazole Sodium (Protonix -) 40 mg PO DAILY [facility] Rivaroxaban (Xarelto -) 20 mg PO DAILY [facility] Review of Systems - Review of Systems Constitutional: denies: Chills, Fever Cardiovascular: As noted above Respiratory: reports: Cough and Dyspnea Gastrointestinal: denies: Nausea, Vomiting, Diarrhea, Constipation or Abdominal Pain Genitourinary: denies: Dysuria Neurological: denies: Dizziness or Headaches Vital Signs: Last Vital Signs Temp Pulse Resp BP Pulse Ox 97.6 F 112 H 18 111/73 99 12/18/16 06:00 12/18/16 06:00 12/18/16 06:00 12/18/16 06:00 12/18/16 07:48 Neck: Supple Negative JVD No Bruit Respiratory: Diminished Breath Sounds at the Bases with Course Crepitus Cardiovascular: S1 S2 Irregularly Irregular Gastrointestinal: Soft Benign Normal Bowel Sounds Ext: No Edema Labs: CBC, BMP 12/18/16 05:05 12/18/16 05:05 Hepatic Panel Total Bilirubin 1.0 mg/dL (0.2-1.0) 12/17/16 08:00 AST 20 U/L (15-37) 12/17/16 08:00 ALT 19 U/L (12-78) 12/17/16 08:00 Alkaline Phosphatase 63 U/L (45-117) 12/17/16 08:00 Albumin 2.8 g/dl (3.4-5.0) L 12/17/16 08:00 INR, PTT INR 1.73 (0.82-1.09) H D 12/18/16 05:05 Assessment/Plan ASSESSMENT: 1. 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 Acute on chronic class I-II NYHA classification LV diastolic failure, resolving 3. CAD angina pectoris 4. Permanent/persistent atrial fibrillation [id number] score of 6 on NOAC's 5. HTN 6. Hypercholesterolemia 7. Hypothyroidism 8. CKD PLAN: 1. Continue Lopressor and titrate dosage as needed and as tolerated 2. May consider ACEI or ARBS unless it is contraindicated 3. Continue Xarelto 3. Continue Lasix IV and monitor renal function and electrolytes closely 4. Continue steroids as per primary team Steffen Garcia MD
--- NOTE | 2016-12-18 08:25 | PN ---
Progress Note (short form) - Note Progress Note: reports improved less SOB still quite hypoxic eating breakfast Vital Signs Period Temp Pulse Resp BP Sys/Osman Pulse Ox Last 24 Hr 97.6 F-98 F 83-123 14-25 92-120/57-73 73-99 cor-rrr lungs bilateral rhonchi abd soft,nt ext no edema CBC, BMP 12/18/16 05:05 12/18/16 05:05 Microbiology 12/16/16 19:00 Blood - Peripheral Venous Blood Culture - Preliminary NO GROWTH OBTAINED AFTER 24 HOURS, INCUBATION TO CONTINUE FOR 4 DAYS. 12/16/16 19:55 Blood - Peripheral Venous Blood Culture - Preliminary NO GROWTH OBTAINED AFTER 24 HOURS, INCUBATION TO CONTINUE FOR 4 DAYS. 12/17/16 11:20 Urine For Antigen Detection Legionella Antigen - Final 12/17/16 11:20 Urine For Antigen Detection Streptococcus pneumoniae Antigen (M - Final chest ct report unchanged a/p suspect worsening underlying pulmonary fibrosis agree with surveillance blood cultures screen for influenza urinary antigens add zithromax treat thrush with nystatin d/w Dr Li Problem List - Problems (1) CHF (congestive heart failure) Code(s): I50.9 - HEART FAILURE, UNSPECIFIED Qualifiers: Qualified Code(s): I50.33 - Acute on chronic diastolic (congestive) heart failure (2) Pulmonary fibrosis Code(s): J84.10 - PULMONARY FIBROSIS, UNSPECIFIED (3) Afib Code(s): I48.91 - UNSPECIFIED ATRIAL FIBRILLATION Qualifiers: Qualified Code(s): I48.2 - Chronic atrial fibrillation
--- NOTE | 2016-12-18 09:17 | PN ---
Progress Note (short form) - Note Progress Note: Patient seen and examined in the ICU. Became SOB and hypoxic when she got OOB this AM. Now requiring VM O2. No CP. Some dry cough. Intake & Output 12/15/16 12/16/16 12/17/16 12/18/16 23:59 23:59 23:59 23:59 Intake Total 600 400 Balance 600 400 Weight 125 lb 122 lb 9.232 oz 120 lb 2.431 oz Last Vital Signs Temp Pulse Resp BP Pulse Ox 97.6 F 86 22 120/70 99 12/18/16 06:00 12/18/16 08:00 12/18/16 08:00 12/18/16 08:00 12/18/16 07:48 Active Medications Albuterol Sulfate (Ventolin 0.083% Nebulizer Soln -) 1 amp NEB Q4H PRN PRN Reason: SHORT OF BREATH/WHEEZING Furosemide (Lasix Injection -) 40 mg IVPB DAILY [facility] Last Admin: 12/18/16 09:08 Dose: 40 mg Levothyroxine Sodium (Synthroid -) 50 mcg PO AM [facility] Last Admin: 12/18/16 06:26 Dose: 50 mcg Methylprednisolone Sodium Succinate (Solu-Medrol -) 60 mg IVPB Q6H [facility] Last Admin: 12/18/16 05:30 Dose: 60 mg Metoprolol Tartrate (Lopressor -) 50 mg PO BID [facility] Last Admin: 12/18/16 06:39 Dose: 50 mg Nystatin (Nystatin Oral Suspension -) 500,000 units PO Q6HPO [facility] Last Admin: 12/18/16 06:27 Dose: 500,000 units Pantoprazole Sodium (Protonix -) 40 mg PO DAILY [facility] Last Admin: 12/18/16 09:08 Dose: 40 mg Rivaroxaban (Xarelto -) 20 mg PO DAILY [facility] Last Admin: 12/18/16 09:08 Dose: 20 mg Gen: mildly tachypneic at rest Heart: tachycardic, irregular Lung: bibasilar coarse and fine rales Abd: soft, nontender Ext: distal edema Laboratory Results - last 24 hr 12/17/16 12/17/16 12/17/16 09:10 11:20 21:45 WBC RBC Hgb Hct MCV MCHC RDW Plt Count MPV INR Sodium Potassium Chloride Carbon Dioxide Anion Gap BUN Creatinine Random Glucose Calcium Troponin I < 0.02 TSH 1.64 Urine Color Straw Urine Appearance Clear Urine pH 6.0 Ur Specific [place] 1.006 Urine Protein Negative Urine Glucose (UA) Negative Urine Ketones Negative Urine Blood Negative Urine Nitrite Negative Urine Bilirubin Negative Urine Urobilinogen Negative Ur Leukocyte Esterase Negative 12/18/16 12/18/16 12/18/16 05:05 05:05 05:05 WBC 19.1 H D RBC 4.51 Hgb 13.5 Hct 40.9 MCV 90.5 MCHC 33.0 RDW 16.5 H Plt Count 336 MPV 7.9 INR 1.73 H D Sodium Potassium Chloride Carbon Dioxide Anion Gap BUN Creatinine Random Glucose Calcium Troponin I < 0.02 TSH Urine Color Urine Appearance Urine pH Ur Specific [place] Urine Protein Urine Glucose (UA) Urine Ketones Urine Blood Urine Nitrite Urine Bilirubin Urine Urobilinogen Ur Leukocyte Esterase 12/18/16 05:05 WBC RBC Hgb Hct MCV MCHC RDW Plt Count MPV INR Sodium 139 Potassium 4.1 Chloride 97 L Carbon Dioxide 33 H Anion Gap 9 BUN 27 H D Creatinine 1.0 Random Glucose 149 H Calcium 8.5 Troponin I TSH Urine Color Urine Appearance Urine pH Ur Specific [place] Urine Protein Urine Glucose (UA) Urine Ketones Urine Blood Urine Nitrite Urine Bilirubin Urine Urobilinogen Ur Leukocyte Esterase ASSESSMENT AND PLAN: Acute on Chronic Hypoxic Respiratory Failure Interstitial Lung Disease -> suspect natural progression of this disease Acute on Chronic LV Diastolic Heart Failure Permanent Atrial Fibrillation with RVR HTN Hypercholesterolemia Hypothyroidism Add oral Zmax Medrol BD TX Xarelto Lasix O2 to keep SPo2 >90% NIPPV as needed Dr Li CCTime 35"
[2016-12-18] MEDS ORDERED: AZITHROMYCIN 250 MG TABLET (FP) PO ONE (09:45)
[2016-12-18] MEDS ORDERED: RIVAROXABAN 20 MG TABLET PO SCH (10:00)
[2016-12-18] MEDS ORDERED: FUROSEMIDE 40 MG/4 ML INJECTABLE VIAL IVPB SCH (10:00)
[2016-12-18] MEDS ORDERED: ARFORMOTEROL TARTRATE 15 MCG/2 ML VIAL NEB SCH (10:00)
[2016-12-18] MEDS ORDERED: RANITIDINE HCL 150 MG TABLET (FP) PO SCH (10:00)
[2016-12-18] MEDS ORDERED: PANTOPRAZOLE 40 MG TABLET (FP) PO SCH (10:00)
--- NOTE | 2016-12-18 10:22 | PN ---
Progress Note, Physician History of Present Illness: feels better on nc - Current Medication List Current Medications: Active Medications Albuterol Sulfate (Ventolin 0.083% Nebulizer Soln -) 1 amp NEB Q4H PRN PRN Reason: SHORT OF BREATH/WHEEZING Arformoterol Tartrate (Brovana (Restricted To Pulmonology/Resp) -) 1 amp NEB BID [facility] Last Admin: 12/18/16 09:52 Dose: 1 amp Azithromycin (Zithromax -) 250 mg PO DAILY [facility] Furosemide (Lasix Injection -) 40 mg IVPB DAILY [facility] Last Admin: 12/18/16 09:08 Dose: 40 mg Levothyroxine Sodium (Synthroid -) 50 mcg PO AM [facility] Last Admin: 12/18/16 06:26 Dose: 50 mcg Methylprednisolone Sodium Succinate (Solu-Medrol -) 60 mg IVPB Q6H [facility] Last Admin: 12/18/16 10:08 Dose: 60 mg Metoprolol Tartrate (Lopressor -) 50 mg PO BID [facility] Last Admin: 12/18/16 06:39 Dose: 50 mg Nystatin (Nystatin Oral Suspension -) 500,000 units PO Q6HPO [facility] Last Admin: 12/18/16 06:27 Dose: 500,000 units Ranitidine HCl (Zantac -) 150 mg PO BID [facility] Last Admin: 12/18/16 10:06 Dose: Not Given Rivaroxaban (Xarelto -) 20 mg PO DAILY [facility] Last Admin: 12/18/16 09:08 Dose: 20 mg - Objective Vital Signs: Vital Signs Temperature 97.6 F 12/18/16 06:00 Pulse Rate 94 H 12/18/16 09:50 Respiratory Rate 22 12/18/16 08:00 Blood Pressure 120/70 12/18/16 08:00 O2 Sat by Pulse Oximetry (%) 96 12/18/16 09:50 Cardiovascular: Yes: Regular Rate and Rhythm Respiratory: Yes: On Nasal O2, Rales Gastrointestinal: Yes: Normal Bowel Sounds, Soft Edema: No Labs: CBC, BMP 12/18/16 05:05 12/18/16 05:05 INR, PTT INR 1.73 (0.82-1.09) H D 12/18/16 05:05 Problem List - Problems (1) Afib Assessment/Plan: AC on xarelto Code(s): I48.91 - UNSPECIFIED ATRIAL FIBRILLATION Qualifiers: Atrial fibrillation type: permanent Qualified Code(s): I48.2 - Chronic atrial fibrillation (2) CHF (congestive heart failure) Assessment/Plan: IV LASIX F/U IMAGING Code(s): I50.9 - HEART FAILURE, UNSPECIFIED Qualifiers: Congestive heart failure type: diastolic Congestive heart failure chronicity: acute on chronic Qualified Code(s): I50.33 - Acute on chronic diastolic (congestive) heart failure (3) COPD (chronic obstructive pulmonary disease) Assessment/Plan: NEBS STEROIDS Code(s): J44.9 - CHRONIC OBSTRUCTIVE PULMONARY DISEASE, UNSPECIFIED Qualifiers : COPD type: unspecified COPD Qualified Code(s): J44.9 - Chronic obstructive pulmonary disease, unspecified
[2016-12-18] MEDS ORDERED: ALBUTEROL SO4 0.083% IH SOL 2.5 MG/3 ML VIAL.NEB. NEB PRN (10:31)
[2016-12-18] MEDS ORDERED: methylPREDNISolone NA SUCC 125 MG/2 ML VIAL IVPB SCH (11:00)
[2016-12-18] MEDS: RANITIDINE HCL 150 MG TABLET (FP) PO SCH (21:31)
[2016-12-18] MEDS: ARFORMOTEROL TARTRATE 15 MCG/2 ML VIAL NEB SCH (22:53)
[2016-12-19] MEDS: NYSTATIN 500,000 UNITS/5 ML SUSPENSION PO SCH ×4 (00:29→18:15)
[2016-12-19] MEDS: methylPREDNISolone NA SUCC 125 MG/2 ML VIAL IVPB SCH (03:13)
[2016-12-19] MEDS: LEVOTHYROXINE NA 50 MCG TABLET (FP) PO SCH (06:25)
[2016-12-19 08:15] LABS: BASOPHIL 0.1 % (0-2.0); MCH 29.4 pg (25.7-33.7); MCHC 32.8 g/dl (32.0-36.0); MEAN CELL VOLUME 89.9 fl (80-96); MEAN PLT VOLUME 7.8 fl (7.5-11.1); NEUTROPHILS 93.8 % (42.8-82.8); PLATELET COUNT 315 K/MM3 (134-434); RDW 16.4 % (11.6-15.6)
--- NOTE | 2016-12-19 08:41 | PN ---
Progress Note, Physician History of Present Illness: feels better on nc - Current Medication List Current Medications: Active Medications Albuterol Sulfate (Ventolin 0.083% Nebulizer Soln -) 1 amp NEB Q4H PRN PRN Reason: SHORT OF BREATH/WHEEZING Arformoterol Tartrate (Brovana (Restricted To Pulmonology/Resp) -) 1 amp NEB BID [facility] Last Admin: 12/18/16 22:53 Dose: 1 amp Azithromycin (Zithromax -) 250 mg PO DAILY [facility] Furosemide (Lasix Injection -) 40 mg IVPB DAILY [facility] Levothyroxine Sodium (Synthroid -) 50 mcg PO AM [facility] Last Admin: 12/19/16 06:25 Dose: 50 mcg Methylprednisolone Sodium Succinate (Solu-Medrol -) 60 mg IVPB Q6H-IV [facility] Last Admin: 12/19/16 03:13 Dose: 60 mg Metoprolol Tartrate (Lopressor -) 50 mg PO BID [facility] Last Admin: 12/18/16 21:30 Dose: 50 mg Nystatin (Nystatin Oral Suspension -) 500,000 units PO Q6HPO [facility] Last Admin: 12/19/16 06:24 Dose: 500,000 units Ranitidine HCl (Zantac -) 150 mg PO BID [facility] Last Admin: 12/18/16 21:31 Dose: 150 mg Rivaroxaban (Xarelto -) 20 mg PO DAILY [facility] - Objective Vital Signs: Vital Signs Temperature 97.9 F 12/19/16 06:00 Pulse Rate 104 H 12/19/16 08:10 Respiratory Rate 20 12/19/16 08:10 Blood Pressure 130/67 12/19/16 08:10 O2 Sat by Pulse Oximetry (%) 96 12/18/16 21:00 Cardiovascular: Yes: Tachycardia, Pulse Irregular, S1, S2 Respiratory: Yes: Rales Gastrointestinal: Yes: Normal Bowel Sounds, Soft Labs: INR, PTT INR 1.73 (0.82-1.09) H D 12/18/16 05:05 Problem List - Problems (1) Afib Assessment/Plan: AC on xarelto INCREASE METOPROLOL 75 BID Code(s): I48.91 - UNSPECIFIED ATRIAL FIBRILLATION Qualifiers: Atrial fibrillation type: permanent Qualified Code(s): I48.2 - Chronic atrial fibrillation (2) CHF (congestive heart failure) Assessment/Plan: IV LASIX F/U IMAGING Code(s): I50.9 - HEART FAILURE, UNSPECIFIED Qualifiers: Congestive heart failure type: diastolic Congestive heart failure chronicity: acute on chronic Qualified Code(s): I50.33 - Acute on chronic diastolic (congestive) heart failure (3) COPD (chronic obstructive pulmonary disease) Assessment/Plan: NEBS STEROIDS--TAPER 40 Q 8 Code(s): J44.9 - CHRONIC OBSTRUCTIVE PULMONARY DISEASE, UNSPECIFIED Qualifiers : COPD type: unspecified COPD Qualified Code(s): J44.9 - Chronic obstructive pulmonary disease, unspecified
[2016-12-19 09:12] LABS: CALCIUM 8.5 mg/dL (8.5-10.1)
--- NOTE | 2016-12-19 09:49 | PN ---
Progress Note (short form) - Note Progress Note: Chief Complaint: Events noted, notes reviewed, transferred to telemetry, dyspnea persists but improved, denies any chest pain History of Present Illness: Seen and examined on telemetry. Events noted, notes reviewed, transferred to telemetry, dyspnea persists but improved, denies any chest pain Echocardiography performed 11/05 revealed normal LV size and function, LA dilatation, mild MR and moderate TR with RVSP of 30-40 mmHg Medications: Current Medications Albuterol Sulfate (Ventolin 0.083% Nebulizer Soln -) 1 amp NEB Q4H PRN PRN Reason: SHORT OF BREATH/WHEEZING Arformoterol Tartrate (Brovana (Restricted To Pulmonology/Resp) -) 1 amp NEB BID [facility] Last Admin: 12/18/16 22:53 Dose: 1 amp Azithromycin (Zithromax -) 250 mg PO DAILY [facility] Furosemide (Lasix Injection -) 40 mg IVPB DAILY [facility] Levothyroxine Sodium (Synthroid -) 50 mcg PO AM [facility] Last Admin: 12/19/16 06:25 Dose: 50 mcg Methylprednisolone Sodium Succinate (Solu-Medrol -) 40 mg IVPB Q8H-IV [facility] Metoprolol Tartrate (Lopressor -) 75 mg PO BID [facility] Nystatin (Nystatin Oral Suspension -) 500,000 units PO Q6HPO [facility] Last Admin: 12/19/16 06:24 Dose: 500,000 units Ranitidine HCl (Zantac -) 150 mg PO BID [facility] Last Admin: 12/18/16 21:31 Dose: 150 mg Rivaroxaban (Xarelto -) 20 mg PO DAILY [facility] Review of Systems - Review of Systems Constitutional: denies: Chills, Fever Cardiovascular: As noted above Respiratory: reports: Cough and Dyspnea Gastrointestinal: denies: Nausea, Vomiting, Diarrhea, Constipation or Abdominal Pain Genitourinary: denies: Dysuria Neurological: denies: Dizziness or Headaches Vital Signs: Last Vital Signs Temp Pulse Resp BP Pulse Ox 97.9 F 104 H 20 130/67 96 12/19/16 06:00 12/19/16 08:10 12/19/16 08:10 12/19/16 08:10 12/18/16 21:00 Neck: Supple Negative JVD No Bruit Respiratory: Diminished Breath Sounds at the Bases with Course Crepitus Bilaterally Cardiovascular: S1 S2 Irregularly Irregular Gastrointestinal: Soft Benign Normal Bowel Sounds Ext: No Edema Labs: CBC, BMP 12/19/16 06:02 12/19/16 06:02 INR, PTT INR 1.73 (0.82-1.09) H D 12/18/16 05:05 Assessment/Plan ASSESSMENT: 1. 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 Acute on chronic class I-II NYHA classification LV diastolic failure, resolving 3. CAD angina pectoris 4. Permanent/persistent atrial fibrillation [id number] score of 6 on NOAC's 5. HTN 6. Hypercholesterolemia 7. Hypothyroidism 8. CKD PLAN: 1. Continue Lopressor and titrate dosage as needed and as tolerated, hemodynamics permitting 2. May consider ACEI or ARBS unless it is contraindicated, provided renal renal remains stable 3. Continue Xarelto 3. Continue Lasix but switch to PO therapy, monitor renal function and electrolytes closely 4. Continue steroids and bronchodilators as per primary team 5. Continue antibiotics as per primary team Steffen Garcia MD
[2016-12-19] MEDS ORDERED: AZITHROMYCIN 250 MG TABLET (FP) PO SCH (10:00)
[2016-12-19] MEDS ORDERED: FUROSEMIDE 40 MG/4 ML INJECTABLE VIAL IVPB SCH (10:00)
[2016-12-19] MEDS: ARFORMOTEROL TARTRATE 15 MCG/2 ML VIAL NEB SCH ×2 (10:40→22:50)
[2016-12-19] MEDS: RANITIDINE HCL 150 MG TABLET (FP) PO SCH ×2 (11:10→21:36)
[2016-12-19] MEDS: VALSARTAN 40 MG TABLET (FP) PO SCH (11:11)
[2016-12-19] MEDS: METOPROLOL TARTRATE 50 MG TABLET (FP) PO SCH ×2 (11:11→21:36)
[2016-12-19] MEDS: FUROSEMIDE 40 MG TABLET (FP) PO SCH (11:11)
[2016-12-19] MEDS: RIVAROXABAN 20 MG TABLET PO SCH (11:12)
[2016-12-19] MEDS: methylPREDNISolone NA SUCC 40 MG/1 ML VIAL IVPB SCH ×2 (11:12→18:16)
[2016-12-19] MEDS: AZITHROMYCIN 250 MG TABLET (FP) PO SCH (12:54)
--- NOTE | 2016-12-19 13:15 | PN ---
Progress Note (short form) - Note Progress Note: Feels a little better today. Still with HERRERA. No CP. Some dry cough. Intake & Output 12/16/16 12/17/16 12/18/16 12/19/16 23:59 23:59 23:59 23:59 Intake Total 600 1700 Balance 600 1700 Weight 125 lb 122 lb 9.232 oz 120 lb 2.431 oz 123 lb 5 oz Last Vital Signs Temp Pulse Resp BP Pulse Ox 97.9 F 104 H 20 130/67 98 12/19/16 06:00 12/19/16 08:10 12/19/16 08:10 12/19/16 08:10 12/19/16 11:11 Laboratory Results - last 24 hr 12/19/16 12/19/16 06:02 06:02 WBC 18.0 H RBC 4.44 Hgb 13.1 Hct 39.9 MCV 89.9 MCHC 32.8 RDW 16.4 H Plt Count 315 MPV 7.8 Neutrophils % 93.8 H Lymphocytes % 3.9 L D Monocytes % 2.2 L Eosinophils % 0.0 D Basophils % 0.1 Sodium 138 Potassium 3.6 Chloride 95 L Carbon Dioxide 29 Anion Gap 14 BUN 32 H Creatinine 1.0 Random Glucose 159 H Calcium 8.5 Gen: mildly tachypneic at rest Heart: tachycardic, irregular Lung: bibasilar coarse and fine rales Abd: soft, nontender Ext: distal edema Laboratory Results - last 24 hr 12/19/16 12/19/16 06:02 06:02 WBC 18.0 H RBC 4.44 Hgb 13.1 Hct 39.9 MCV 89.9 MCHC 32.8 RDW 16.4 H Plt Count 315 MPV 7.8 Neutrophils % 93.8 H Lymphocytes % 3.9 L D Monocytes % 2.2 L Eosinophils % 0.0 D Basophils % 0.1 Sodium 138 Potassium 3.6 Chloride 95 L Carbon Dioxide 29 Anion Gap 14 BUN 32 H Creatinine 1.0 Random Glucose 159 H Calcium 8.5 ASSESSMENT AND PLAN: Acute on Chronic Hypoxic Respiratory Failure Interstitial Lung Disease -> suspect natural progression of this disease Acute on Chronic LV Diastolic Heart Failure Permanent Atrial Fibrillation with RVR HTN Hypercholesterolemia Hypothyroidism Oral Zmax Medrol BD TX Xarelto Lasix O2 to keep SPo2 >90% NIPPV as needed Dr Li
[2016-12-20] MEDS: NYSTATIN 500,000 UNITS/5 ML SUSPENSION PO SCH ×4 (00:39→17:31)
[2016-12-20] MEDS: methylPREDNISolone NA SUCC 40 MG/1 ML VIAL IVPB SCH ×3 (02:59→22:02)
[2016-12-20] MEDS: LEVOTHYROXINE NA 50 MCG TABLET (FP) PO SCH (06:06)
--- NOTE | 2016-12-20 08:16 | PN ---
Progress Note, Physician History of Present Illness: feels better on nc - Current Medication List Current Medications: Active Medications Albuterol Sulfate (Ventolin 0.083% Nebulizer Soln -) 1 amp NEB Q4H PRN PRN Reason: SHORT OF BREATH/WHEEZING Arformoterol Tartrate (Brovana (Restricted To Pulmonology/Resp) -) 1 amp NEB BID [facility] Last Admin: 12/19/16 22:50 Dose: 1 amp Azithromycin (Zithromax -) 250 mg PO DAILY [facility] Last Admin: 12/19/16 12:54 Dose: 250 mg Furosemide (Lasix -) 40 mg PO DAILY [facility] Last Admin: 12/19/16 11:11 Dose: 40 mg Levothyroxine Sodium (Synthroid -) 50 mcg PO AM [facility] Last Admin: 12/20/16 06:06 Dose: 50 mcg Methylprednisolone Sodium Succinate (Solu-Medrol -) 40 mg IVPB Q8H-IV [facility] Last Admin: 12/20/16 02:59 Dose: 40 mg Metoprolol Tartrate (Lopressor -) 75 mg PO BID [facility] Last Admin: 12/19/16 21:36 Dose: 75 mg Nystatin (Nystatin Oral Suspension -) 500,000 units PO Q6HPO [facility] Last Admin: 12/20/16 06:06 Dose: 500,000 units Ranitidine HCl (Zantac -) 150 mg PO BID [facility] Last Admin: 12/19/16 21:36 Dose: 150 mg Rivaroxaban (Xarelto -) 20 mg PO DAILY [facility] Last Admin: 12/19/16 11:12 Dose: 20 mg Valsartan (Diovan -) 40 mg PO DAILY [facility] Last Admin: 12/19/16 11:11 Dose: 40 mg - Objective Vital Signs: Vital Signs Temperature 97.9 F 12/20/16 06:00 Pulse Rate 72 12/20/16 06:00 Respiratory Rate 16 12/20/16 06:00 Blood Pressure 104/58 12/20/16 06:00 O2 Sat by Pulse Oximetry (%) 97 12/19/16 23:09 Cardiovascular: Yes: S1, S2 Respiratory: Yes: Rales Gastrointestinal: Yes: Normal Bowel Sounds, Soft Edema: No Labs: CBC, BMP 12/19/16 06:02 12/19/16 06:02 INR, PTT INR 1.73 (0.82-1.09) H D 12/18/16 05:05 Problem List - Problems (1) Afib Assessment/Plan: AC on xarelto INCREASE METOPROLOL 75 BID Code(s): I48.91 - UNSPECIFIED ATRIAL FIBRILLATION Qualifiers: Atrial fibrillation type: permanent Qualified Code(s): I48.2 - Chronic atrial fibrillation (2) CHF (congestive heart failure) Assessment/Plan: IV LASIX--TO PO F/U IMAGING Code(s): I50.9 - HEART FAILURE, UNSPECIFIED Qualifiers: Congestive heart failure type: diastolic Congestive heart failure chronicity: acute on chronic Qualified Code(s): I50.33 - Acute on chronic diastolic (congestive) heart failure (3) COPD (chronic obstructive pulmonary disease) Assessment/Plan: NEBS STEROIDS--TAPER 40 Q 8 Code(s): J44.9 - CHRONIC OBSTRUCTIVE PULMONARY DISEASE, UNSPECIFIED Qualifiers : COPD type: unspecified COPD Qualified Code(s): J44.9 - Chronic obstructive pulmonary disease, unspecified Assessment/Plan PHYSICAL THERAPY--SNF D/W PT
[2016-12-20] MEDS: RANITIDINE HCL 150 MG TABLET (FP) PO SCH ×2 (09:33→22:02)
[2016-12-20] MEDS: RIVAROXABAN 20 MG TABLET PO SCH (09:33)
[2016-12-20] MEDS: ARFORMOTEROL TARTRATE 15 MCG/2 ML VIAL NEB SCH ×2 (10:25→21:40)
--- NOTE | 2016-12-20 11:20 | PN ---
Progress Note, Physician History of Present Illness: PULMONARY FEELING BETTER,SOB IMPROVING,LESS COUGH,LESS CONGESTION - Current Medication List Current Medications: Active Medications Albuterol Sulfate (Ventolin 0.083% Nebulizer Soln -) 1 amp NEB Q4H PRN PRN Reason: SHORT OF BREATH/WHEEZING Arformoterol Tartrate (Brovana (Restricted To Pulmonology/Resp) -) 1 amp NEB BID [facility] Last Admin: 12/20/16 10:25 Dose: 1 amp Azithromycin (Zithromax -) 250 mg PO DAILY [facility] Last Admin: 12/19/16 12:54 Dose: 250 mg Furosemide (Lasix -) 40 mg PO DAILY [facility] Last Admin: 12/19/16 11:11 Dose: 40 mg Levothyroxine Sodium (Synthroid -) 50 mcg PO AM [facility] Last Admin: 12/20/16 06:06 Dose: 50 mcg Methylprednisolone Sodium Succinate (Solu-Medrol -) 40 mg IVPB BID [facility] Last Admin: 12/20/16 10:33 Dose: 40 mg Metoprolol Tartrate (Lopressor -) 75 mg PO BID [facility] Last Admin: 12/19/16 21:36 Dose: 75 mg Nystatin (Nystatin Oral Suspension -) 500,000 units PO Q6HPO [facility] Last Admin: 12/20/16 06:06 Dose: 500,000 units Ranitidine HCl (Zantac -) 150 mg PO BID [facility] Last Admin: 12/20/16 09:33 Dose: 150 mg Rivaroxaban (Xarelto -) 20 mg PO DAILY [facility] Last Admin: 12/20/16 09:33 Dose: 20 mg Valsartan (Diovan -) 40 mg PO DAILY [facility] Last Admin: 12/19/16 11:11 Dose: 40 mg - Objective Vital Signs: Vital Signs Temperature 97.9 F 12/20/16 06:00 Pulse Rate 74 12/20/16 10:25 Respiratory Rate 16 12/20/16 06:00 Blood Pressure 104/58 12/20/16 06:00 O2 Sat by Pulse Oximetry (%) 96 12/20/16 10:25 Constitutional: Yes: Well Nourished, Calm Eyes: Yes: WNL HENT: Yes: WNL Neck: Yes: WNL Cardiovascular: Yes: Pulse Irregular, S1, S2 Respiratory: Yes: Rales (BILATERAL CRACKLES) Gastrointestinal: Yes: Normal Bowel Sounds, Soft Extremities: Yes: WNL Edema: No - ....Imaging Chest X-ray: Report Reviewed, Image Reviewed Problem List - Problems (1) Shortness of breath Code(s): R06.02 - SHORTNESS OF BREATH (2) Afib Code(s): I48.91 - UNSPECIFIED ATRIAL FIBRILLATION Qualifiers: Atrial fibrillation type: permanent Qualified Code(s): I48.2 - Chronic atrial fibrillation (3) CHF (congestive heart failure) Code(s): I50.9 - HEART FAILURE, UNSPECIFIED Qualifiers: Congestive heart failure type: diastolic Congestive heart failure chronicity: acute on chronic Qualified Code(s): I50.33 - Acute on chronic diastolic (congestive) heart failure (4) COPD (chronic obstructive pulmonary disease) Code(s): J44.9 - CHRONIC OBSTRUCTIVE PULMONARY DISEASE, UNSPECIFIED Qualifiers : COPD type: unspecified COPD Qualified Code(s): J44.9 - Chronic obstructive pulmonary disease, unspecified (5) HLD (hyperlipidemia) Code(s): E78.5 - HYPERLIPIDEMIA, UNSPECIFIED Qualifiers: Hyperlipidemia type: pure hypercholesterolemia Qualified Code(s): E78.00 - Pure hypercholesterolemia, unspecified; E78.0 - Pure hypercholesterolemia (6) HTN (hypertension) Code(s): I10 - ESSENTIAL (PRIMARY) HYPERTENSION Qualifiers: Hypertension type: essential hypertension Qualified Code(s): I10 - Essential (primary) hypertension (7) Hypothyroid Code(s): E03.9 - HYPOTHYROIDISM, UNSPECIFIED Qualifiers: Hypothyroidism type: unspecified Qualified Code(s): E03.9 - Hypothyroidism, unspecified (8) Rapid atrial fibrillation Code(s): I48.91 - UNSPECIFIED ATRIAL FIBRILLATION (9) Acute on chronic respiratory failure with hypoxemia Code(s): J96.21 - ACUTE AND CHRONIC RESPIRATORY FAILURE WITH HYPOXIA (10) Interstitial lung disease Code(s): J84.9 - INTERSTITIAL PULMONARY DISEASE, UNSPECIFIED Assessment/Plan ASSESSMENT AND PLAN: Acute on Chronic Hypoxic Respiratory Failure Interstitial Lung Disease Acute on Chronic LV Diastolic Heart Failure Atrial Fibrillation with RVR HTN Hypercholesterolemia Hypothyroidism - lasix - monitor urine output, creatinine - O2 to keep SPo2 >90% - BiPAP prn - rate control - continue anticoagulation - continue medrol - inhaled bronchodilators DR RAZO
--- NOTE | 2016-12-20 11:20 | PN ---
Progress Note (short form) - Note Progress Note: reports improved breathing but still with HERRERA did not use bipap last night Vital Signs Period Temp Pulse Resp BP Sys/Osman Pulse Ox Last 24 Hr 97.2 F-97.9 F 63-89 16-22 87-114/58-68 96-97 cor-rrr lungs bibasilar crackles abd soft,nt ext no edema CBC, BMP 12/19/16 06:02 12/19/16 06:02 Microbiology 12/16/16 19:00 Blood - Peripheral Venous Blood Culture - Preliminary NO GROWTH OBTAINED AFTER 72 HOURS, INCUBATION TO CONTINUE FOR 2 DAYS. 12/16/16 19:55 Blood - Peripheral Venous Blood Culture - Preliminary NO GROWTH OBTAINED AFTER 72 HOURS, INCUBATION TO CONTINUE FOR 2 DAYS. 12/18/16 09:00 Nasopharyngeal Swab Influenza Types A,B Antigen (ULISES) - Final 12/18/16 09:00 Nasopharyngeal Swab - Final 12/17/16 11:20 Urine - Urine Clean Catch Urine Culture - Final NO GROWTH OBTAINED 12/17/16 11:20 Urine For Antigen Detection Legionella Antigen - Final 12/17/16 11:20 Urine For Antigen Detection Streptococcus pneumoniae Antigen (M - Final a/p suspect worsening underlying pulmonary fibrosis chf ct scan unchanged short course po zithromax one week treat thrush with nystatin leukocytosis secondary to steroids please call back if needed Problem List - Problems (1) CHF (congestive heart failure) Code(s): I50.9 - HEART FAILURE, UNSPECIFIED Qualifiers: Qualified Code(s): I50.33 - Acute on chronic diastolic (congestive) heart failure (2) Pulmonary fibrosis Code(s): J84.10 - PULMONARY FIBROSIS, UNSPECIFIED (3) Afib Code(s): I48.91 - UNSPECIFIED ATRIAL FIBRILLATION Qualifiers: Qualified Code(s): I48.2 - Chronic atrial fibrillation
[2016-12-20] MEDS: VALSARTAN 40 MG TABLET (FP) PO SCH (13:16)
[2016-12-20] MEDS: FUROSEMIDE 40 MG TABLET (FP) PO SCH (13:16)
[2016-12-20] MEDS: METOPROLOL TARTRATE 50 MG TABLET (FP) PO SCH ×2 (13:16→22:02)
[2016-12-20] MEDS: AZITHROMYCIN 250 MG TABLET (FP) PO SCH (14:00)
--- NOTE | 2016-12-20 14:59 | PN ---
Progress Note, Physician Chief Complaint: Less SOB History of Present Illness: Patient was seen and examined. Awake and alert. Chart was reviewed Denies chest pain or palpitations Less SOB but still with rhochi and underlying pulmonary fibrosis - Current Medication List Current Medications: Active Medications Albuterol Sulfate (Ventolin 0.083% Nebulizer Soln -) 1 amp NEB Q4H PRN PRN Reason: SHORT OF BREATH/WHEEZING Arformoterol Tartrate (Brovana (Restricted To Pulmonology/Resp) -) 1 amp NEB BID [facility] Last Admin: 12/20/16 10:25 Dose: 1 amp Azithromycin (Zithromax -) 250 mg PO DAILY [facility] Last Admin: 12/19/16 12:54 Dose: 250 mg Furosemide (Lasix -) 40 mg PO DAILY [facility] Last Admin: 12/20/16 13:16 Dose: Not Given Levothyroxine Sodium (Synthroid -) 50 mcg PO AM [facility] Last Admin: 12/20/16 06:06 Dose: 50 mcg Methylprednisolone Sodium Succinate (Solu-Medrol -) 40 mg IVPB BID [facility] Last Admin: 12/20/16 10:33 Dose: 40 mg Metoprolol Tartrate (Lopressor -) 75 mg PO BID [facility] Last Admin: 12/20/16 13:16 Dose: Not Given Nystatin (Nystatin Oral Suspension -) 500,000 units PO Q6HPO [facility] Last Admin: 12/20/16 13:15 Dose: 500,000 units Ranitidine HCl (Zantac -) 150 mg PO BID [facility] Last Admin: 12/20/16 09:33 Dose: 150 mg Rivaroxaban (Xarelto -) 20 mg PO DAILY [facility] Last Admin: 12/20/16 09:33 Dose: 20 mg Valsartan (Diovan -) 40 mg PO DAILY [facility] Last Admin: 12/20/16 13:16 Dose: Not Given - Objective Vital Signs: Vital Signs Temperature 97.8 F 12/20/16 13:45 Pulse Rate 84 12/20/16 13:45 Respiratory Rate 20 12/20/16 13:45 Blood Pressure 87/57 12/20/16 13:45 O2 Sat by Pulse Oximetry (%) 96 12/20/16 10:25 Neck: Yes: Supple Cardiovascular: Yes: Pulse Irregular, S1, S2 Respiratory: Yes: Diminished, Rhonchi Gastrointestinal: Yes: Normal Bowel Sounds, Soft. No: Tenderness Edema: No Additional Findings/Remarks: - Review of Systems Constitutional: denies: Chills, Fever Cardiovascular: reports: Shortness of Breath. denies: Chest Pain, Palpitations Respiratory: reports: Cough, SOB, SOB on Exertion. denies: Hemoptysis, Orthopnea, PND Gastrointestinal: denies: Abdominal Pain, Constipation, Diarrhea, Melena, Nausea , Rectal Bleeding, Vomiting Genitourinary: denies: Dysuria Neurological: denies: Dizziness, Headache, Numbness, Seizure, Syncope Labs: CBC, BMP 12/19/16 06:02 12/19/16 06:02 Problem List - Problems (1) Shortness of breath Code(s): R06.02 - SHORTNESS OF BREATH (2) Afib Code(s): I48.91 - UNSPECIFIED ATRIAL FIBRILLATION Qualifiers: Atrial fibrillation type: permanent Qualified Code(s): I48.2 - Chronic atrial fibrillation (3) CHF (congestive heart failure) Code(s): I50.9 - HEART FAILURE, UNSPECIFIED Qualifiers: Congestive heart failure type: diastolic Congestive heart failure chronicity: acute on chronic Qualified Code(s): I50.33 - Acute on chronic diastolic (congestive) heart failure (4) COPD (chronic obstructive pulmonary disease) Code(s): J44.9 - CHRONIC OBSTRUCTIVE PULMONARY DISEASE, UNSPECIFIED Qualifiers : COPD type: unspecified COPD Qualified Code(s): J44.9 - Chronic obstructive pulmonary disease, unspecified (5) HLD (hyperlipidemia) Code(s): E78.5 - HYPERLIPIDEMIA, UNSPECIFIED Qualifiers: Hyperlipidemia type: pure hypercholesterolemia Qualified Code(s): E78.00 - Pure hypercholesterolemia, unspecified; E78.0 - Pure hypercholesterolemia (6) HTN (hypertension) Code(s): I10 - ESSENTIAL (PRIMARY) HYPERTENSION Qualifiers: Hypertension type: essential hypertension Qualified Code(s): I10 - Essential (primary) hypertension (7) Hypothyroid Code(s): E03.9 - HYPOTHYROIDISM, UNSPECIFIED Qualifiers: Hypothyroidism type: unspecified Qualified Code(s): E03.9 - Hypothyroidism, unspecified (8) Pulmonary fibrosis Code(s): J84.10 - PULMONARY FIBROSIS, UNSPECIFIED Assessment/Plan 1. ILD/pulmonary fibrosis with shortness of breath - ?acute on chronic LV diastolic failure with congestion 2. Permanent atrial fibrillation with variable HR 3. HTN 4. Hypercholesterolemia 5. Hypothyroidism PLAN: 1. Continue Metoprolol - titrate to control HR 2. Continue Xarelto 3. Continue Lasix PO and monitor renal function and electrolytes 4. Continue steroids and pulmonary follow up 5. Continue Synthroid Further plans are to follow Santy Werner MD
[2016-12-21] MEDS: NYSTATIN 500,000 UNITS/5 ML SUSPENSION PO SCH ×5 (00:46→23:55)
[2016-12-21] MEDS: LEVOTHYROXINE NA 50 MCG TABLET (FP) PO SCH (06:09)
--- NOTE | 2016-12-21 08:48 | PN ---
Progress Note (short form) - Note Progress Note: Chief Complaint: Events noted, notes reviewed, dyspnea persists but improving, denies any chest pain History of Present Illness: Seen and examined on telemetry. Events noted, notes reviewed, dyspnea persists but improving, denies any chest pain Echocardiography performed 11/05 revealed normal LV size and function, LA dilatation, mild MR and moderate TR with RVSP of 30-40 mmHg Medications: Current Medications Albuterol Sulfate (Ventolin 0.083% Nebulizer Soln -) 1 amp NEB Q4H PRN PRN Reason: SHORT OF BREATH/WHEEZING Arformoterol Tartrate (Brovana (Restricted To Pulmonology/Resp) -) 1 amp NEB BID [facility] Last Admin: 12/20/16 21:40 Dose: 1 amp Azithromycin (Zithromax -) 250 mg PO DAILY [facility] Last Admin: 12/20/16 14:00 Dose: 250 mg Furosemide (Lasix -) 40 mg PO DAILY [facility] Last Admin: 12/20/16 13:16 Dose: Not Given Levothyroxine Sodium (Synthroid -) 50 mcg PO AM [facility] Last Admin: 12/21/16 06:09 Dose: 50 mcg Methylprednisolone Sodium Succinate (Solu-Medrol -) 40 mg IVPB BID [facility] Last Admin: 12/20/16 22:02 Dose: 40 mg Metoprolol Tartrate (Lopressor -) 75 mg PO BID [facility] Last Admin: 12/20/16 22:02 Dose: 75 mg Nystatin (Nystatin Oral Suspension -) 500,000 units PO Q6HPO [facility] Last Admin: 12/21/16 06:05 Dose: 500,000 units Ranitidine HCl (Zantac -) 150 mg PO BID [facility] Last Admin: 12/20/16 22:02 Dose: 150 mg Rivaroxaban (Xarelto -) 20 mg PO DAILY [facility] Last Admin: 12/20/16 09:33 Dose: 20 mg Valsartan (Diovan -) 40 mg PO DAILY [facility] Last Admin: 12/20/16 13:16 Dose: Not Given Review of Systems - Review of Systems Constitutional: denies: Chills, Fever Cardiovascular: As noted above Respiratory: reports: Cough and Dyspnea Gastrointestinal: denies: Nausea, Vomiting, Diarrhea, Constipation or Abdominal Pain Genitourinary: denies: Dysuria Neurological: denies: Dizziness or Headaches Vital Signs: Last Vital Signs Temp Pulse Resp BP Pulse Ox 98 F 87 20 108/62 96 12/21/16 05:50 12/21/16 05:50 12/21/16 05:50 12/21/16 05:50 12/20/16 10:25 Neck: Supple Negative JVD No Bruit Respiratory: Diminished Breath Sounds at the Bases with Course Crepitus Bilaterally Cardiovascular: S1 S2 Irregularly Irregular Gastrointestinal: Soft Benign Normal Bowel Sounds Ext: No Edema Labs: CBC, BMP 12/19/16 06:02 12/19/16 06:02 INR, PTT INR 1.73 (0.82-1.09) H D 12/18/16 05:05 Assessment/Plan ASSESSMENT: 1. 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 Acute on chronic class I-II NYHA classification LV diastolic failure, resolving 3. CAD angina pectoris 4. Permanent/persistent atrial fibrillation [id number] score of 6 on NOAC's 5. HTN 6. Hypercholesterolemia 7. Hypothyroidism 8. CKD PLAN: 1. Continue Lopressor and titrate dosage as needed and as tolerated, hemodynamics permitting 2. Continue Diovan with close monitoring of renal function 3. Continue Xarelto 3. Continue PO Lasix, monitor renal function and electrolytes closely 4. Continue steroids and bronchodilators as per primary team 5. Continue antibiotics as per primary team Steffen Garcia MD
--- NOTE | 2016-12-21 09:23 | PN ---
Progress Note, Physician History of Present Illness: ON NC NO CP SOB ON EXERTION - Current Medication List Current Medications: Active Medications Albuterol Sulfate (Ventolin 0.083% Nebulizer Soln -) 1 amp NEB Q4H PRN PRN Reason: SHORT OF BREATH/WHEEZING Arformoterol Tartrate (Brovana (Restricted To Pulmonology/Resp) -) 1 amp NEB BID [facility] Last Admin: 12/20/16 21:40 Dose: 1 amp Azithromycin (Zithromax -) 250 mg PO DAILY [facility] Last Admin: 12/20/16 14:00 Dose: 250 mg Furosemide (Lasix -) 40 mg PO DAILY [facility] Last Admin: 12/20/16 13:16 Dose: Not Given Levothyroxine Sodium (Synthroid -) 50 mcg PO AM [facility] Last Admin: 12/21/16 06:09 Dose: 50 mcg Methylprednisolone Sodium Succinate (Solu-Medrol -) 40 mg IVPB BID [facility] Last Admin: 12/20/16 22:02 Dose: 40 mg Metoprolol Tartrate (Lopressor -) 75 mg PO BID [facility] Last Admin: 12/20/16 22:02 Dose: 75 mg Nystatin (Nystatin Oral Suspension -) 500,000 units PO Q6HPO [facility] Last Admin: 12/21/16 06:05 Dose: 500,000 units Ranitidine HCl (Zantac -) 150 mg PO BID [facility] Last Admin: 12/20/16 22:02 Dose: 150 mg Rivaroxaban (Xarelto -) 20 mg PO DAILY [facility] Last Admin: 12/20/16 09:33 Dose: 20 mg Valsartan (Diovan -) 40 mg PO DAILY [facility] Last Admin: 12/20/16 13:16 Dose: Not Given - Objective Vital Signs: Vital Signs Temperature 98 F 12/21/16 05:50 Pulse Rate 87 12/21/16 05:50 Respiratory Rate 20 12/21/16 05:50 Blood Pressure 108/62 12/21/16 05:50 O2 Sat by Pulse Oximetry (%) 96 12/20/16 10:25 Cardiovascular: Yes: Pulse Irregular, S1, S2 Respiratory: Yes: Regular, CTA Bilaterally Gastrointestinal: Yes: Normal Bowel Sounds, Soft Labs: CBC, BMP 12/19/16 06:02 12/19/16 06:02 INR, PTT INR 1.73 (0.82-1.09) H D 12/18/16 05:05 Problem List - Problems (1) Afib Assessment/Plan: AC on xarelto INCREASE METOPROLOL 75 BID Code(s): I48.91 - UNSPECIFIED ATRIAL FIBRILLATION Qualifiers: Atrial fibrillation type: permanent Qualified Code(s): I48.2 - Chronic atrial fibrillation (2) CHF (congestive heart failure) Assessment/Plan: IV LASIX--TO PO F/U IMAGING Code(s): I50.9 - HEART FAILURE, UNSPECIFIED Qualifiers: Congestive heart failure type: diastolic Congestive heart failure chronicity: acute on chronic Qualified Code(s): I50.33 - Acute on chronic diastolic (congestive) heart failure (3) COPD (chronic obstructive pulmonary disease) Assessment/Plan: NEBS STEROIDS--TAPER 40 Q 12--TO PO 30 BID Code(s): J44.9 - CHRONIC OBSTRUCTIVE PULMONARY DISEASE, UNSPECIFIED Qualifiers : COPD type: unspecified COPD Qualified Code(s): J44.9 - Chronic obstructive pulmonary disease, unspecified Assessment/Plan PHYSICAL THERAPY--SNF D/W PT
[2016-12-21] MEDS: VALSARTAN 40 MG TABLET (FP) PO SCH (10:00)
[2016-12-21] MEDS ORDERED: predniSONE 10 MG TABLET (UD) PO SCH (10:00)
[2016-12-21] MEDS: METOPROLOL TARTRATE 50 MG TABLET (FP) PO SCH ×2 (10:00→21:56)
[2016-12-21] MEDS: RIVAROXABAN 20 MG TABLET PO SCH (10:10)
[2016-12-21] MEDS: RANITIDINE HCL 150 MG TABLET (FP) PO SCH ×2 (10:10→21:55)
[2016-12-21] MEDS: FUROSEMIDE 40 MG TABLET (FP) PO SCH (10:11)
[2016-12-21] MEDS: ARFORMOTEROL TARTRATE 15 MCG/2 ML VIAL NEB SCH ×2 (10:15→22:30)
--- NOTE | 2016-12-21 10:44 | PN ---
Progress Note, Physician History of Present Illness: pulmonary alert,oob-chair ,hypoxic on nasal O2 3L ,Sat 85% - Current Medication List Current Medications: Active Medications Albuterol Sulfate (Ventolin 0.083% Nebulizer Soln -) 1 amp NEB Q4H PRN PRN Reason: SHORT OF BREATH/WHEEZING Arformoterol Tartrate (Brovana (Restricted To Pulmonology/Resp) -) 1 amp NEB BID [facility] Last Admin: 12/20/16 21:40 Dose: 1 amp Azithromycin (Zithromax -) 250 mg PO DAILY [facility] Last Admin: 12/20/16 14:00 Dose: 250 mg Furosemide (Lasix -) 40 mg PO DAILY [facility] Last Admin: 12/21/16 10:11 Dose: 40 mg Levothyroxine Sodium (Synthroid -) 50 mcg PO AM [facility] Last Admin: 12/21/16 06:09 Dose: 50 mcg Metoprolol Tartrate (Lopressor -) 75 mg PO BID [facility] Last Admin: 12/20/16 22:02 Dose: 75 mg Nystatin (Nystatin Oral Suspension -) 500,000 units PO Q6HPO [facility] Last Admin: 12/21/16 06:05 Dose: 500,000 units Prednisone (Deltasone -) 30 mg PO BID [facility] Last Admin: 12/21/16 10:10 Dose: 30 mg Ranitidine HCl (Zantac -) 150 mg PO BID [facility] Last Admin: 12/21/16 10:10 Dose: 150 mg Rivaroxaban (Xarelto -) 20 mg PO DAILY [facility] Last Admin: 12/21/16 10:10 Dose: 20 mg Valsartan (Diovan -) 40 mg PO DAILY [facility] Last Admin: 12/20/16 13:16 Dose: Not Given - Objective Vital Signs: Vital Signs Temperature 98 F 12/21/16 05:50 Pulse Rate 87 12/21/16 05:50 Respiratory Rate 20 12/21/16 05:50 Blood Pressure 108/62 12/21/16 05:50 O2 Sat by Pulse Oximetry (%) 96 12/20/16 10:25 Constitutional: Yes: Well Nourished, Calm Eyes: Yes: WNL HENT: Yes: WNL Neck: Yes: WNL Cardiovascular: Yes: Pulse Irregular, S1, S2 Respiratory: Yes: Rales, Wheezes (BILATEAL CRACKLES AND SCATTERED WHEEZES) Gastrointestinal: Yes: Normal Bowel Sounds, Soft Extremities: Yes: WNL Edema: Yes Labs: CBC, BMP 12/19/16 06:02 12/19/16 06:02 INR, PTT INR 1.73 (0.82-1.09) H D 12/18/16 05:05 Problem List - Problems (1) Shortness of breath Code(s): R06.02 - SHORTNESS OF BREATH (2) Afib Code(s): I48.91 - UNSPECIFIED ATRIAL FIBRILLATION Qualifiers: Atrial fibrillation type: permanent Qualified Code(s): I48.2 - Chronic atrial fibrillation (3) CHF (congestive heart failure) Code(s): I50.9 - HEART FAILURE, UNSPECIFIED Qualifiers: Congestive heart failure type: diastolic Congestive heart failure chronicity: acute on chronic Qualified Code(s): I50.33 - Acute on chronic diastolic (congestive) heart failure (4) COPD (chronic obstructive pulmonary disease) Code(s): J44.9 - CHRONIC OBSTRUCTIVE PULMONARY DISEASE, UNSPECIFIED Qualifiers : COPD type: unspecified COPD Qualified Code(s): J44.9 - Chronic obstructive pulmonary disease, unspecified (5) HLD (hyperlipidemia) Code(s): E78.5 - HYPERLIPIDEMIA, UNSPECIFIED Qualifiers: Hyperlipidemia type: pure hypercholesterolemia Qualified Code(s): E78.00 - Pure hypercholesterolemia, unspecified; E78.0 - Pure hypercholesterolemia (6) HTN (hypertension) Code(s): I10 - ESSENTIAL (PRIMARY) HYPERTENSION Qualifiers: Hypertension type: essential hypertension Qualified Code(s): I10 - Essential (primary) hypertension (7) Hypothyroid Code(s): E03.9 - HYPOTHYROIDISM, UNSPECIFIED Qualifiers: Hypothyroidism type: unspecified Qualified Code(s): E03.9 - Hypothyroidism, unspecified (8) Rapid atrial fibrillation Code(s): I48.91 - UNSPECIFIED ATRIAL FIBRILLATION (9) Acute on chronic respiratory failure with hypoxemia Code(s): J96.21 - ACUTE AND CHRONIC RESPIRATORY FAILURE WITH HYPOXIA (10) Interstitial lung disease Code(s): J84.9 - INTERSTITIAL PULMONARY DISEASE, UNSPECIFIED Assessment/Plan ASSESSMENT AND PLAN: Acute on Chronic Hypoxic Respiratory Failure Interstitial Lung Disease Acute on Chronic LV Diastolic Heart Failure Atrial Fibrillation with RVR HTN Hypercholesterolemia Hypothyroidism - lasix - monitor urine output, creatinine - O2 to keep SPo2 >90% - BiPAP prn - rate control - continue anticoagulation - resume medrol - inhaled bronchodilators - chest x-ray DR RAZO
[2016-12-21] MEDS: methylPREDNISolone NA SUCC 40 MG/1 ML VIAL IVPB SCH ×2 (14:27→17:27)
[2016-12-21] MEDS: AZITHROMYCIN 250 MG TABLET (FP) PO SCH (14:52)
[2016-12-22] MEDS: methylPREDNISolone NA SUCC 40 MG/1 ML VIAL IVPB SCH ×3 (02:39→17:27)
[2016-12-22] MEDS: NYSTATIN 500,000 UNITS/5 ML SUSPENSION PO SCH ×3 (06:35→17:27)
[2016-12-22] MEDS: LEVOTHYROXINE NA 50 MCG TABLET (FP) PO SCH (06:35)
[2016-12-22] MEDS: RIVAROXABAN 20 MG TABLET PO SCH (09:07)
[2016-12-22] MEDS: FUROSEMIDE 40 MG TABLET (FP) PO SCH (09:07)
[2016-12-22] MEDS: METOPROLOL TARTRATE 50 MG TABLET (FP) PO SCH ×2 (09:08→21:35)
[2016-12-22] MEDS: RANITIDINE HCL 150 MG TABLET (FP) PO SCH ×2 (09:08→21:35)
[2016-12-22] MEDS: VALSARTAN 40 MG TABLET (FP) PO SCH (09:08)
[2016-12-22] MEDS: AZITHROMYCIN 250 MG TABLET (FP) PO SCH (09:09)
--- NOTE | 2016-12-22 10:00 | PN ---
Progress Note, Physician Chief Complaint: Less SOB Not in distress History of Present Illness: Patient was seen and examined. Awake and alert. Chart was reviewed Denies chest pain or palpitations Less SOB underlying pulmonary fibrosis - Current Medication List Current Medications: Active Medications Albuterol Sulfate (Ventolin 0.083% Nebulizer Soln -) 1 amp NEB Q4H PRN PRN Reason: SHORT OF BREATH/WHEEZING Last Admin: 12/21/16 10:35 Dose: 1 amp Arformoterol Tartrate (Brovana (Restricted To Pulmonology/Resp) -) 1 amp NEB BID [facility] Last Admin: 12/21/16 22:30 Dose: 1 amp Azithromycin (Zithromax -) 250 mg PO DAILY [facility] Last Admin: 12/22/16 09:09 Dose: 250 mg Furosemide (Lasix -) 40 mg PO DAILY [facility] Last Admin: 12/22/16 09:07 Dose: 40 mg Levothyroxine Sodium (Synthroid -) 50 mcg PO AM [facility] Last Admin: 12/22/16 06:35 Dose: 50 mcg Methylprednisolone Sodium Succinate (Solu-Medrol -) 40 mg IVPB Q8H-IV [facility] Last Admin: 12/22/16 09:09 Dose: 40 mg Metoprolol Tartrate (Lopressor -) 75 mg PO BID [facility] Last Admin: 12/22/16 09:08 Dose: 75 mg Nystatin (Nystatin Oral Suspension -) 500,000 units PO Q6HPO [facility] Last Admin: 12/22/16 06:35 Dose: 500,000 units Ranitidine HCl (Zantac -) 150 mg PO BID [facility] Last Admin: 12/22/16 09:08 Dose: 150 mg Rivaroxaban (Xarelto -) 20 mg PO DAILY [facility] Last Admin: 12/22/16 09:07 Dose: 20 mg Valsartan (Diovan -) 40 mg PO DAILY [facility] Last Admin: 12/22/16 09:08 Dose: 40 mg - Objective Vital Signs: Vital Signs Temperature 97.6 F 12/22/16 06:00 Pulse Rate 71 12/22/16 06:00 Respiratory Rate 18 12/22/16 06:00 Blood Pressure 106/61 12/22/16 06:00 O2 Sat by Pulse Oximetry (%) 95 12/21/16 21:00 Neck: Yes: Supple Cardiovascular: Yes: Pulse Irregular, S1, S2 Respiratory: Yes: Diminished, Rhonchi Gastrointestinal: Yes: Normal Bowel Sounds, Soft. No: Tenderness Edema: No Problem List - Problems (1) Shortness of breath Code(s): R06.02 - SHORTNESS OF BREATH (2) Afib Code(s): I48.91 - UNSPECIFIED ATRIAL FIBRILLATION Qualifiers: Atrial fibrillation type: permanent Qualified Code(s): I48.2 - Chronic atrial fibrillation (3) CHF (congestive heart failure) Code(s): I50.9 - HEART FAILURE, UNSPECIFIED Qualifiers: Congestive heart failure type: diastolic Congestive heart failure chronicity: acute on chronic Qualified Code(s): I50.33 - Acute on chronic diastolic (congestive) heart failure (4) COPD (chronic obstructive pulmonary disease) Code(s): J44.9 - CHRONIC OBSTRUCTIVE PULMONARY DISEASE, UNSPECIFIED Qualifiers : COPD type: unspecified COPD Qualified Code(s): J44.9 - Chronic obstructive pulmonary disease, unspecified (5) HLD (hyperlipidemia) Code(s): E78.5 - HYPERLIPIDEMIA, UNSPECIFIED Qualifiers: Hyperlipidemia type: pure hypercholesterolemia Qualified Code(s): E78.00 - Pure hypercholesterolemia, unspecified; E78.0 - Pure hypercholesterolemia (6) HTN (hypertension) Code(s): I10 - ESSENTIAL (PRIMARY) HYPERTENSION Qualifiers: Hypertension type: essential hypertension Qualified Code(s): I10 - Essential (primary) hypertension (7) Hypothyroid Code(s): E03.9 - HYPOTHYROIDISM, UNSPECIFIED Qualifiers: Hypothyroidism type: unspecified Qualified Code(s): E03.9 - Hypothyroidism, unspecified (8) Pulmonary fibrosis Code(s): J84.10 - PULMONARY FIBROSIS, UNSPECIFIED Assessment/Plan 1. ILD/pulmonary fibrosis with shortness of breath - ?acute on chronic LV diastolic failure with congestion 2. Permanent atrial fibrillation with variable HR 3. HTN 4. Hypercholesterolemia 5. Hypothyroidism PLAN: 1. Continue Metoprolol - titrate to control HR 2. Continue Xarelto 3. Continue Lasix PO and monitor renal function and electrolytes 4. Continue steroids and pulmonary follow up 5. Continue Synthroid Further plans are to follow Santy Werner MD
[2016-12-22] MEDS: ARFORMOTEROL TARTRATE 15 MCG/2 ML VIAL NEB SCH ×2 (10:15→23:12)
--- NOTE | 2016-12-22 10:17 | DS ---
Physical Examination Vital Signs: Vital Signs Temperature 97.6 F 12/22/16 06:00 Pulse Rate 71 12/22/16 06:00 Respiratory Rate 18 12/22/16 06:00 Blood Pressure 106/61 12/22/16 06:00 O2 Sat by Pulse Oximetry (%) 95 12/21/16 21:00 Cardiovascular: Yes: Regular Rate and Rhythm Respiratory: Yes: Diminished, Rales Gastrointestinal: Yes: Normal Bowel Sounds, Soft Labs: CBC, BMP 12/19/16 06:02 12/19/16 06:02 Discharge Summary Reason For Visit: CONGESTIVE HEART FAILURE Current Active Problems Acute on chronic respiratory failure with hypoxemia (Acute) Interstitial lung disease (Acute) Shortness of breath (Acute) Hospital Course: 86 y/o woman with history of Afib (on Xarelto), HTN, hyperlipidemia, hypothyroidism, CHF, COPD (on home O2), pulmonary fibrosis (on pred 10) and recent PNA who presented to ED with dyspnea. Briefly, pt recently admitted from 11/03-11/08 with pneumonia. She was treated and symptoms resolved and she was d/cd home. Per daughter, over the past 5 days pt has had worsening SOB and a mild non-productive cough. She has had to uptitrate her home O2 from 3 to 4 or 5L. Pt denied fever, chills, chest pain, nausea/ vomiting/ diarrhea or any dysuria. Pt presented to ED on 12/16. - Past Medical History Cardiovascular: Yes: AFIB, HTN, Hyperlipdemia Pulmonary: Yes: COPD, Pulmonary Fibrosis Hepatobiliary: Yes: Cholelithiasis Endocrine: Yes: Hypothyroidism - Past Surgical History Past Surgical History: Yes: Cholecystectomy - Problems (1) Afib Assessment/Plan: AC on xarelto INCREASE METOPROLOL 75 BID Code(s): I48.91 - UNSPECIFIED ATRIAL FIBRILLATION Qualifiers: Atrial fibrillation type: permanent Qualified Code(s): I48.2 - Chronic atrial fibrillation (2) CHF (congestive heart failure) Assessment/Plan: IV LASIX--TO PO F/U IMAGING Code(s): I50.9 - HEART FAILURE, UNSPECIFIED Qualifiers: Congestive heart failure type: diastolic Congestive heart failure chronicity: acute on chronic Qualified Code(s): I50.33 - Acute on chronic diastolic (congestive) heart failure (3) COPD (chronic obstructive pulmonary disease) Assessment/Plan: NEBS STEROIDS--TAPER 40 Q 12--TO PO 30 BID Code(s): J44.9 - CHRONIC OBSTRUCTIVE PULMONARY DISEASE, UNSPECIFIED Qualifiers : COPD type: unspecified COPD Qualified Code(s): J44.9 - Chronic obstructive pulmonary disease, unspecified Assessment/Plan PHYSICAL THERAPY--[facility] D/W PT - Instructions Diet, Activity, Other Instructions: prednsione 10mg po bid and taper per md amoxcillin 250mg po bid for sinusitis propphylaxis saline spray to right nose rhinorocket one spray twice a day for 5 days FU with ENT on tuesday to remove rhinorocket metoprolol 75 mg po bid continuous humidifed oxygen 2 litres BLOOD TEST IN ONE WEEK Referrals: Curt Wing MD [Primary Care Provider] - 1 Week Juan Unger MD [Staff Physician] - Disposition: HOME - Home Medications Comprehensive Discharge Medication List: Ambulatory Orders Arformoterol Tartrate [Brovana -] 1 amp NEB BID amp 12/22/16 Azithromycin [Zithromax 250mg Tablets -] 250 mg PO DAILY tablet 12/22/16 Furosemide [Lasix -] 40 mg PO DAILY tablet 12/22/16 Levothyroxine [Synthroid -] 50 mcg PO AM tablet 12/22/16 Metoprolol Tartrate [Lopressor -] 75 mg PO BID tablet 12/22/16 Prednisone [Deltasone -] 30 mg PO BID tablet 12/22/16 Ranitidine [Zantac -] 150 mg PO BID tablet 12/22/16 Rivaroxaban [Xarelto -] 20 mg PO DAILY tablet 12/22/16 Valsartan [Diovan] 40 mg PO DAILY tablet 12/22/16
[2016-12-23] MEDS: methylPREDNISolone NA SUCC 40 MG/1 ML VIAL IVPB SCH ×2 (03:03→09:46)
[2016-12-23] MEDS: NYSTATIN 500,000 UNITS/5 ML SUSPENSION PO SCH ×5 (03:04→23:32)
[2016-12-23] MEDS: LEVOTHYROXINE NA 50 MCG TABLET (FP) PO SCH (06:17)
[2016-12-23] MEDS: RIVAROXABAN 20 MG TABLET PO SCH (09:43)
[2016-12-23] MEDS: METOPROLOL TARTRATE 50 MG TABLET (FP) PO SCH ×2 (09:43→22:02)
[2016-12-23] MEDS: RANITIDINE HCL 150 MG TABLET (FP) PO SCH ×2 (09:43→22:03)
[2016-12-23] MEDS: FUROSEMIDE 40 MG TABLET (FP) PO SCH (09:44)
[2016-12-23] MEDS: VALSARTAN 40 MG TABLET (FP) PO SCH (09:44)
[2016-12-23] MEDS: AZITHROMYCIN 250 MG TABLET (FP) PO SCH (09:46)
--- NOTE | 2016-12-23 10:28 | PN ---
Progress Note, Physician Chief Complaint: nose b leed over nite then it stoped sec to dry oxygen via nasal canula today pateint awake alert no complaints awaiting snf placement - Current Medication List Current Medications: Active Medications Albuterol Sulfate (Ventolin 0.083% Nebulizer Soln -) 1 amp NEB Q4H PRN PRN Reason: SHORT OF BREATH/WHEEZING Last Admin: 12/21/16 10:35 Dose: 1 amp Arformoterol Tartrate (Brovana (Restricted To Pulmonology/Resp) -) 1 amp NEB BID [facility] Last Admin: 12/22/16 23:12 Dose: 1 amp Azithromycin (Zithromax -) 250 mg PO DAILY [facility] Last Admin: 12/23/16 09:46 Dose: 250 mg Furosemide (Lasix -) 40 mg PO DAILY [facility] Last Admin: 12/23/16 09:44 Dose: 40 mg Levothyroxine Sodium (Synthroid -) 50 mcg PO AM [facility] Last Admin: 12/23/16 06:17 Dose: 50 mcg Methylprednisolone Sodium Succinate (Solu-Medrol -) 40 mg IVPB Q8H-IV [facility] Last Admin: 12/23/16 09:46 Dose: 40 mg Metoprolol Tartrate (Lopressor -) 75 mg PO BID [facility] Last Admin: 12/23/16 09:43 Dose: 75 mg Nystatin (Nystatin Oral Suspension -) 500,000 units PO Q6HPO [facility] Last Admin: 12/23/16 06:17 Dose: 500,000 units Ranitidine HCl (Zantac -) 150 mg PO BID [facility] Last Admin: 12/23/16 09:43 Dose: 150 mg Rivaroxaban (Xarelto -) 20 mg PO DAILY [facility] Last Admin: 12/23/16 09:43 Dose: 20 mg Valsartan (Diovan -) 40 mg PO DAILY [facility] Last Admin: 12/23/16 09:44 Dose: 40 mg - Objective Vital Signs: Vital Signs Temperature 97.5 F L 12/23/16 08:27 Pulse Rate 86 12/23/16 08:27 Respiratory Rate 18 12/23/16 08:27 Blood Pressure 118/66 12/23/16 08:27 O2 Sat by Pulse Oximetry (%) 98 12/22/16 21:00 Constitutional: Yes: Calm Neck: Yes: Trachea Midline Cardiovascular: Yes: Regular Rate and Rhythm, S1, S2 Gastrointestinal: Yes: Normal Bowel Sounds, Soft Edema: Yes Labs: CBC, BMP 12/19/16 06:02 12/19/16 06:02 INR, PTT INR 1.73 (0.82-1.09) H D 12/18/16 05:05 Problem List - Problems (1) Acute on chronic respiratory failure with hypoxemia Assessment/Plan: humdiifed oxygen to prevent nose bleed again and saline nasal sprays iv steroid change to bid zithromax on abx wbc sec to steroids no fever cultures negative Microbiology 12/18/16 09:00 Nasopharyngeal Swab Influenza Types A,B Antigen (ULISES) - Final 12/18/16 09:00 Nasopharyngeal Swab - Final 12/17/16 11:20 Urine For Antigen Detection Legionella Antigen - Final 12/17/16 11:20 Urine For Antigen Detection Streptococcus pneumoniae Antigen (M - Final 12/17/16 11:20 Urine - Urine Clean Catch Urine Culture - Final NO GROWTH OBTAINED 12/16/16 19:55 Blood - Peripheral Venous Blood Culture - Final NO GROWTH AFTER 5 DAYS INCUBATION 12/16/16 19:00 Blood - Peripheral Venous Blood Culture - Final NO GROWTH AFTER 5 DAYS INCUBATION Code(s): J96.21 - ACUTE AND CHRONIC RESPIRATORY FAILURE WITH HYPOXIA (2) Afib Assessment/Plan: on AC-xarelto rate control Code(s): I48.91 - UNSPECIFIED ATRIAL FIBRILLATION Qualifiers: Atrial fibrillation type: permanent Qualified Code(s): I48.2 - Chronic atrial fibrillation (3) CHF (congestive heart failure) Assessment/Plan: gauri and johnie BB Code(s): I50.9 - HEART FAILURE, UNSPECIFIED Qualifiers: Congestive heart failure type: diastolic Congestive heart failure chronicity: acute on chronic Qualified Code(s): I50.33 - Acute on chronic diastolic (congestive) heart failure (4) Hypothyroid Assessment/Plan: synthroid tsh WNL Code(s): E03.9 - HYPOTHYROIDISM, UNSPECIFIED Qualifiers: Hypothyroidism type: unspecified Qualified Code(s): E03.9 - Hypothyroidism, unspecified Assessment/Plan PT snf placment to [facility]
[2016-12-23] MEDS: ARFORMOTEROL TARTRATE 15 MCG/2 ML VIAL NEB SCH ×2 (10:32→22:46)
[2016-12-23] MEDS ORDERED: PT OWN MED DRAWER 7, Y5N ONE (11:53)
--- NOTE | 2016-12-23 12:15 | PN ---
Progress Note, Physician History of Present Illness: Epistaxis resolved with right nare packed. - Current Medication List Current Medications: Active Medications Arformoterol Tartrate (Brovana (Restricted To Pulmonology/Resp) -) 1 amp NEB BID [facility] Last Admin: 12/23/16 10:32 Dose: 1 amp Azithromycin (Zithromax -) 250 mg PO DAILY [facility] Last Admin: 12/23/16 09:46 Dose: 250 mg Furosemide (Lasix -) 40 mg PO DAILY [facility] Last Admin: 12/23/16 09:44 Dose: 40 mg Levothyroxine Sodium (Synthroid -) 50 mcg PO AM [facility] Last Admin: 12/23/16 06:17 Dose: 50 mcg Methylprednisolone Sodium Succinate (Solu-Medrol -) 40 mg IVPB BID [facility] Metoprolol Tartrate (Lopressor -) 75 mg PO BID [facility] Last Admin: 12/23/16 09:43 Dose: 75 mg Nystatin (Nystatin Oral Suspension -) 500,000 units PO Q6HPO [facility] Last Admin: 12/23/16 06:17 Dose: 500,000 units Ranitidine HCl (Zantac -) 150 mg PO BID [facility] Last Admin: 12/23/16 09:43 Dose: 150 mg Rivaroxaban (Xarelto -) 20 mg PO DAILY [facility] Last Admin: 12/23/16 09:43 Dose: 20 mg Sodium Chloride ([place] Nasal [place] -) 2 spray NS TID [facility] Valsartan (Diovan -) 40 mg PO DAILY [facility] Last Admin: 12/23/16 09:44 Dose: 40 mg - Objective Vital Signs: Vital Signs Temperature 97.5 F L 12/23/16 08:27 Pulse Rate 86 12/23/16 08:27 Respiratory Rate 18 12/23/16 08:27 Blood Pressure 118/66 12/23/16 08:27 O2 Sat by Pulse Oximetry (%) 98 12/22/16 21:00 Constitutional: Yes: No Distress, Calm, Thin HENT: Yes: Epistaxis Neck: Yes: Supple Cardiovascular: Yes: Pulse Irregular Respiratory: Yes: Regular, Diminished, On Nasal O2 Gastrointestinal: Yes: Normal Bowel Sounds, Soft Edema: No Labs: CBC, BMP 12/19/16 06:02 12/19/16 06:02 INR, PTT INR 1.73 (0.82-1.09) H D 12/18/16 05:05 Problem List - Problems (1) Acute on chronic respiratory failure with hypoxemia Code(s): J96.21 - ACUTE AND CHRONIC RESPIRATORY FAILURE WITH HYPOXIA (2) Interstitial lung disease Code(s): J84.9 - INTERSTITIAL PULMONARY DISEASE, UNSPECIFIED (3) Shortness of breath Code(s): R06.02 - SHORTNESS OF BREATH (4) Afib Code(s): I48.91 - UNSPECIFIED ATRIAL FIBRILLATION Qualifiers: Atrial fibrillation type: permanent Qualified Code(s): I48.2 - Chronic atrial fibrillation (5) COPD (chronic obstructive pulmonary disease) Code(s): J44.9 - CHRONIC OBSTRUCTIVE PULMONARY DISEASE, UNSPECIFIED Qualifiers : COPD type: unspecified COPD Qualified Code(s): J44.9 - Chronic obstructive pulmonary disease, unspecified (6) HLD (hyperlipidemia) Code(s): E78.5 - HYPERLIPIDEMIA, UNSPECIFIED Qualifiers: Hyperlipidemia type: pure hypercholesterolemia Qualified Code(s): E78.00 - Pure hypercholesterolemia, unspecified; E78.0 - Pure hypercholesterolemia (7) HTN (hypertension) Code(s): I10 - ESSENTIAL (PRIMARY) HYPERTENSION Qualifiers: Hypertension type: essential hypertension Qualified Code(s): I10 - Essential (primary) hypertension (8) Hypothyroid Code(s): E03.9 - HYPOTHYROIDISM, UNSPECIFIED Qualifiers: Hypothyroidism type: unspecified Qualified Code(s): E03.9 - Hypothyroidism, unspecified (9) Pulmonary fibrosis Code(s): J84.10 - PULMONARY FIBROSIS, UNSPECIFIED (10) Anterior epistaxis Code(s): R04.0 - EPISTAXIS Assessment/Plan Echocardiography performed 11/05 revealed normal LV size and function, LA dilatation, mild MR and moderate TR with RVSP of 30-40 mmHg 1. 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 Acute on chronic class I-II NYHA classification LV diastolic failure, resolving 3. CAD angina pectoris 4. Permanent/persistent atrial fibrillation [id number] score of 6 on NOAC's 5. HTN 6. Hypercholesterolemia 7. Hypothyroidism 8. CKD 9. Epistaxis post right nare packing PLAN: 1. Continue Lopressor 75 bid hemodynamics permitting 2. Continue Diovan 40 qd with close monitoring of renal function 3. Hold Xarelto 20 qd pending resolution of epistaxis, humidified O2, ENT f/u 3. Continue Lasix 40 qd, monitor renal function and electrolytes closely 4. Continue steroids with GI protection and bronchodilators as per primary team 5. Continue antibiotics as per primary team
--- NOTE | 2016-12-23 12:57 | PN ---
Progress Note (short form) - Note Progress Note: Significant epistaxis that has not been able to be controlled. Breathing feels ok. Inflatable nasal packing device inserted into the right nare and inflated. Immediate hemostasis achieved. ENT was called for further evaluation. Intake & Output 12/20/16 12/21/16 12/22/16 12/23/16 23:59 23:59 23:59 23:59 Intake Total 300 200 100 Balance 300 200 100 Weight 124 lb 12.8 oz 125 lb 8 oz 124 lb 2 oz Last Vital Signs Temp Pulse Resp BP Pulse Ox 97.5 F L 90 20 121/66 98 12/23/16 08:27 12/23/16 12:41 12/23/16 12:41 12/23/16 12:41 12/22/16 21:00 Active Medications Arformoterol Tartrate (Brovana (Restricted To Pulmonology/Resp) -) 1 amp NEB BID [facility] Last Admin: 12/23/16 10:32 Dose: 1 amp Azithromycin (Zithromax -) 250 mg PO DAILY [facility] Last Admin: 12/23/16 09:46 Dose: 250 mg Furosemide (Lasix -) 40 mg PO DAILY [facility] Last Admin: 12/23/16 09:44 Dose: 40 mg Levothyroxine Sodium (Synthroid -) 50 mcg PO AM [facility] Last Admin: 12/23/16 06:17 Dose: 50 mcg Methylprednisolone Sodium Succinate (Solu-Medrol -) 40 mg IVPB BID [facility] Metoprolol Tartrate (Lopressor -) 75 mg PO BID [facility] Last Admin: 12/23/16 09:43 Dose: 75 mg Nystatin (Nystatin Oral Suspension -) 500,000 units PO Q6HPO [facility] Last Admin: 12/23/16 06:17 Dose: 500,000 units Ranitidine HCl (Zantac -) 150 mg PO BID [facility] Last Admin: 12/23/16 09:43 Dose: 150 mg Sodium Chloride ([place] Nasal [place] -) 2 spray NS TID [facility] Valsartan (Diovan -) 40 mg PO DAILY [facility] Last Admin: 12/23/16 09:44 Dose: 40 mg Gen: mildly tachypneic at rest Heart: tachycardic, irregular Lung: bibasilar coarse and fine rales Abd: soft, nontender Ext: distal edema ASSESSMENT AND PLAN: Right nare significant epistaxis -> S/P insertion of inflatable nasal device Acute on Chronic Hypoxic Respiratory Failure Interstitial Lung Disease -> suspect natural progression of this disease Acute on Chronic LV Diastolic Heart Failure Permanent Atrial Fibrillation with RVR HTN Hypercholesterolemia Hypothyroidism ENT evaluation called Monitor off ABX Off Systemic steroids FM O2 BD TX Lasix as needed Dr Li
[2016-12-23] MEDS: SODIUM CHLORIDE NASAL SPRAY 44 ML BOTTLE NS SCH ×2 (14:55→22:03)
--- NOTE | 2016-12-23 18:21 | CON.ENT ---
Consult Consult Specialty:: ENT Referred by:: Guillermo Reason for Consultation:: EPistaxis - History of Present Illness Chief Complaint: Nosebleed History of Present Illness: She was admitted with CHF, HTN and afib on Xarelto. She bled last night on the right, then bled a lot all over her and the bed for 20 min, till an inflatable rhino rocket was placed in the right nostril and inflated. She had her last dose of xarelto this am, and had the right packing placed a few HOURs ago. - History Source History Provided By: Patient, Medical Record Limitations to Obtaining History: No Limitations - Past Medical History Cardio/Vascular: Yes: AFIB, HTN, Hyperlipdemia Pulmonary: Yes: COPD, Pulmonary Fibrosis Hepatobiliary: Yes: Cholelithiasis Endocrine: Yes: Hypothyroidism - Past Surgical History Past Surgical History: Yes: Cholecystectomy - Alcohol/Substance Use Hx Alcohol Use: No - Smoking History Smoking history: Never smoked Have you smoked in the past 12 months: No Aproximately how many cigarettes per day: 0 Home Medications - Allergies Allergies/Adverse Reactions: Allergies Allergy/AdvReac Type Severity Reaction Status Date / Time tomato Allergy Rash Verified 12/18/16 14:05 levofloxacin AdvReac Itching Verified 12/16/16 18:20 nuts Allergy Uncoded 12/18/16 14:05 - Home Medications Home Medications: Ambulatory Orders Arformoterol Tartrate [Brovana -] 1 amp NEB BID amp 12/22/16 Furosemide [Lasix -] 40 mg PO DAILY tablet 12/22/16 Levothyroxine [Synthroid -] 50 mcg PO AM tablet 12/22/16 Metoprolol Tartrate [Lopressor -] 75 mg PO BID tablet 12/22/16 Ranitidine [Zantac -] 150 mg PO BID tablet 12/22/16 Rivaroxaban [Xarelto -] 20 mg PO DAILY tablet 12/22/16 Valsartan [Diovan] 40 mg PO DAILY tablet 12/22/16 Azithromycin [Zithromax 250mg Tablets -] 250 mg PO DAILY #7 tablet 12/23/16 Prednisone [Deltasone -] 30 mg PO BID #0 tablet 12/23/16 Sodium Chloride Nasal [place] [[place] Nasal [place] -] 2 spray NS TID #1 spray 12/23/16 Physical Exam-ENT Vital Signs: Vital Signs Temperature 97.1 F L 12/23/16 14:42 Pulse Rate 78 12/23/16 15:39 Respiratory Rate 20 12/23/16 14:42 Blood Pressure 134/90 12/23/16 14:42 O2 Sat by Pulse Oximetry (%) 94 L 12/23/16 15:44 Constitutional: Yes: Well Nourished, No Distress Head: Yes: Atraumatic Face: Yes: Symmetrical Eyes: Yes: WNL Nose: Yes: Other (Inflated right nasal packing) Nasal Passage: Yes: Other Oral/Pharynx: Yes: WNL Outer Ear: Yes: WNL Ear Canal: Yes: WNL Neck: Yes: WNL Problem List - Problems (1) Anterior epistaxis Assessment/Plan: Leave packing in till Tuesday to be removed in [facility] office. D/c home or SNF on amoxil 250 bid for sinusitis prophylaxis and saline spray onto right nasal packing 1 spray 2x/day to keep it moistened. Code(s): R04.0 - EPISTAXIS
[2016-12-23] MEDS ORDERED: methylPREDNISolone NA SUCC 40 MG/1 ML VIAL IVPB SCH (22:00)
[2016-12-24] MEDS: NYSTATIN 500,000 UNITS/5 ML SUSPENSION PO SCH ×3 (06:43→17:36)
[2016-12-24] MEDS: SODIUM CHLORIDE NASAL SPRAY 44 ML BOTTLE NS SCH ×3 (06:43→21:58)
[2016-12-24] MEDS: LEVOTHYROXINE NA 50 MCG TABLET (FP) PO SCH (06:43)
[2016-12-24] MEDS: FUROSEMIDE 40 MG TABLET (FP) PO SCH (10:00)
[2016-12-24] MEDS: METOPROLOL TARTRATE 50 MG TABLET (FP) PO SCH ×2 (10:00→21:58)
[2016-12-24] MEDS: VALSARTAN 40 MG TABLET (FP) PO SCH (10:00)
[2016-12-24] MEDS: RANITIDINE HCL 150 MG TABLET (FP) PO SCH ×2 (10:01→21:58)
[2016-12-24] MEDS: ARFORMOTEROL TARTRATE 15 MCG/2 ML VIAL NEB SCH ×2 (10:21→22:40)
[2016-12-24 10:39] LABS: MCH 29.5 pg (25.7-33.7); MCHC 32.4 g/dl (32.0-36.0); MEAN CELL VOLUME 91.1 fl (80-96); MEAN PLT VOLUME 8.1 fl (7.5-11.1); PLATELET COUNT 301 K/MM3 (134-434); RDW 16.1 % (11.6-15.6); WHITE BLOOD COUNT 24.3 K/mm3 (4.0-10.0)
[2016-12-24 11:09] LABS: ALBUMIN 2.6 g/dl (3.4-5.0); ANION GAP 12 (8-16); CALCIUM 8.5 mg/dL (8.5-10.1); CO2 31 mmol/L (21-32); GLUCOSE,RANDOM 275 mg/dL (74-106)
[2016-12-24 11:12] LABS: ALK PHOS 57 U/L (45-117); BILIRUBIN,TOTAL 0.9 mg/dL (0.2-1.0); CREATININE 0.8 mg/dL (0.55-1.02); SGOT/AST 16 U/L (15-37); SGPT/ALT 27 U/L (12-78); TOT PROT 5.6 g/dl (6.4-8.2)
[2016-12-24] MEDS: predniSONE 10 MG TABLET (UD) PO SCH ×2 (11:14→21:57)
[2016-12-24 11:26] LABS: PLATELET ESTIMATE ADEQUATE (NORMAL)
[2016-12-24] MEDS: AMOXICILLIN 250 MG CAPSULE PO SCH ×2 (11:33→21:57)
[2016-12-24] MEDS ORDERED: PT OWN MED DRAWER 7, Y5N ONE (19:13)
[2016-12-25] MEDS: NYSTATIN 500,000 UNITS/5 ML SUSPENSION PO SCH ×4 (00:41→17:00)
[2016-12-25] MEDS: LEVOTHYROXINE NA 50 MCG TABLET (FP) PO SCH (06:47)
[2016-12-25] MEDS ORDERED: PT OWN MED DRAWER 7, Y5N ONE (09:53)
[2016-12-25] MEDS: RANITIDINE HCL 150 MG TABLET (FP) PO SCH ×2 (09:56→21:12)
[2016-12-25] MEDS: FUROSEMIDE 40 MG TABLET (FP) PO SCH (09:56)
[2016-12-25] MEDS: VALSARTAN 40 MG TABLET (FP) PO SCH (09:56)
[2016-12-25] MEDS: AMOXICILLIN 250 MG CAPSULE PO SCH ×2 (09:56→21:55)
[2016-12-25] MEDS: METOPROLOL TARTRATE 50 MG TABLET (FP) PO SCH ×2 (09:57→21:13)
[2016-12-25] MEDS: predniSONE 10 MG TABLET (UD) PO SCH ×2 (09:57→21:13)
[2016-12-25] MEDS: ARFORMOTEROL TARTRATE 15 MCG/2 ML VIAL NEB SCH ×2 (10:15→22:30)
--- NOTE | 2016-12-25 10:15 | PN ---
Progress Note, Physician Chief Complaint: feels better needs o2 mask - Current Medication List Current Medications: Active Medications Amoxicillin (Amoxicillin -) 250 mg PO BID [facility] Stop: 12/29/16 10:44 Last Admin: 12/25/16 09:56 Dose: 250 mg Arformoterol Tartrate (Brovana (Restricted To Pulmonology/Resp) -) 1 amp NEB BID [facility] Last Admin: 12/24/16 22:40 Dose: 1 amp Furosemide (Lasix -) 40 mg PO DAILY [facility] Last Admin: 12/25/16 09:56 Dose: 40 mg Levothyroxine Sodium (Synthroid -) 50 mcg PO AM [facility] Last Admin: 12/25/16 06:47 Dose: 50 mcg Metoprolol Tartrate (Lopressor -) 75 mg PO BID [facility] Last Admin: 12/25/16 09:57 Dose: 75 mg Nystatin (Nystatin Oral Suspension -) 500,000 units PO Q6HPO [facility] Last Admin: 12/25/16 06:47 Dose: 500,000 units Prednisone (Deltasone -) 30 mg PO BID [facility] Last Admin: 12/25/16 09:57 Dose: 30 mg Ranitidine HCl (Zantac -) 150 mg PO BID [facility] Last Admin: 12/25/16 09:56 Dose: 150 mg Sodium Chloride ([place] Nasal [place] -) 2 spray NS TID [facility] Last Admin: 12/24/16 06:43 Dose: 2 sprays Sodium Chloride ([place] Nasal [place] -) 1 spray NS BID [facility] Last Admin: 12/24/16 21:58 Dose: 1 spray Valsartan (Diovan -) 40 mg PO DAILY [facility] Last Admin: 12/25/16 09:56 Dose: 40 mg - Objective Vital Signs: Vital Signs Temperature 97.6 F 12/25/16 09:02 Pulse Rate 94 H 12/25/16 09:02 Respiratory Rate 20 12/25/16 09:02 Blood Pressure 96/54 12/25/16 09:02 O2 Sat by Pulse Oximetry (%) 97 12/24/16 21:00 Constitutional: Yes: Calm Neck: Yes: WNL Cardiovascular: Yes: WNL Respiratory: Yes: Diminished Gastrointestinal: Yes: WNL Edema: No Labs: CBC, BMP 12/24/16 10:35 12/24/16 10:35 INR, PTT INR 1.73 (0.82-1.09) H D 12/18/16 05:05 Problem List - Problems (1) Acute on chronic respiratory failure with hypoxemia Code(s): J96.21 - ACUTE AND CHRONIC RESPIRATORY FAILURE WITH HYPOXIA (2) Anterior epistaxis Code(s): R04.0 - EPISTAXIS (3) Afib Code(s): I48.91 - UNSPECIFIED ATRIAL FIBRILLATION Qualifiers: Atrial fibrillation type: permanent Qualified Code(s): I48.2 - Chronic atrial fibrillation (4) CHF (congestive heart failure) Code(s): I50.9 - HEART FAILURE, UNSPECIFIED Qualifiers: Congestive heart failure type: diastolic Congestive heart failure chronicity: acute on chronic Qualified Code(s): I50.33 - Acute on chronic diastolic (congestive) heart failure (5) COPD (chronic obstructive pulmonary disease) Code(s): J44.9 - CHRONIC OBSTRUCTIVE PULMONARY DISEASE, UNSPECIFIED Qualifiers : COPD type: unspecified COPD Qualified Code(s): J44.9 - Chronic obstructive pulmonary disease, unspecified Assessment/Plan (1) Anterior epistaxis Assessment/Plan: right nasal rhinorocket in place salnie spray to it twice a day amoxicclin 250mg po bid for 5 days FU with ENT on tuesday in office to remove rhinorocket Code(s): R04.0 - EPISTAXIS (2) Acute on chronic respiratory failure with hypoxemia Assessment/Plan: humdiifed oxygen to prevent nose bleed again and saline nasal sprays steroid abx (3) Afib Assessment/Plan: on AC-xarelto on hold for nose bleed rate control CARDIO FU with regards to anticoagulation- dcplanning dependant on that Code(s): I48.91 - UNSPECIFIED ATRIAL FIBRILLATION Qualifiers: Atrial fibrillation type: permanent Qualified Code(s): I48.2 - Chronic atrial fibrillation (4) CHF (congestive heart failure) Assessment/Plan: diovan and lasix BB Qualifiers: Congestive heart failure type: diastolic Congestive heart failure chronicity: acute on chronic Qualified Code(s): I50.33 - Acute on chronic diastolic (congestive) heart failure (5) Hypothyroid Assessment/Plan: synthroid tsh WNL Code(s): E03.9 - HYPOTHYROIDISM, UNSPECIFIED Qualifiers: Hypothyroidism type: unspecified Qualified Code(s): E03.9 - Hypothyroidism, unspecified Assessment/Plan daughter has patient set up for assisted living on tuesday professor of social work to discuss that disharge plan pending Cardio FU regaridng AC [employer]
[2016-12-25] MEDS: SODIUM CHLORIDE NASAL SPRAY 44 ML BOTTLE NS SCH ×2 (10:24→21:13)
[2016-12-26] MEDS: NYSTATIN 500,000 UNITS/5 ML SUSPENSION PO SCH ×4 (00:05→17:44)
[2016-12-26] MEDS: LEVOTHYROXINE NA 50 MCG TABLET (FP) PO SCH (06:20)
--- NOTE | 2016-12-26 08:40 | PN ---
Progress Note, Physician Chief Complaint: HAS PLANS FOR 12/27 -> SON WILL P/U AND TAKE TO [place] (ASSISTED LIVING?) - Current Medication List Current Medications: Active Medications Amoxicillin (Amoxicillin -) 250 mg PO BID [facility] Stop: 12/29/16 10:44 Last Admin: 12/25/16 21:55 Dose: 250 mg Arformoterol Tartrate (Brovana (Restricted To Pulmonology/Resp) -) 1 amp NEB BID [facility] Last Admin: 12/25/16 22:30 Dose: 1 amp Furosemide (Lasix -) 40 mg PO DAILY [facility] Last Admin: 12/25/16 09:56 Dose: 40 mg Levothyroxine Sodium (Synthroid -) 50 mcg PO AM [facility] Last Admin: 12/26/16 06:20 Dose: 50 mcg Metoprolol Tartrate (Lopressor -) 75 mg PO BID [facility] Last Admin: 12/25/16 21:13 Dose: 75 mg Nystatin (Nystatin Oral Suspension -) 500,000 units PO Q6HPO [facility] Last Admin: 12/26/16 05:34 Dose: 500,000 units Prednisone (Deltasone -) 30 mg PO BID [facility] Last Admin: 12/25/16 21:13 Dose: 30 mg Ranitidine HCl (Zantac -) 150 mg PO BID [facility] Last Admin: 12/25/16 21:12 Dose: 150 mg Sodium Chloride ([place] Nasal [place] -) 2 spray NS TID [facility] Last Admin: 12/24/16 06:43 Dose: 2 sprays Sodium Chloride ([place] Nasal [place] -) 1 spray NS BID [facility] Last Admin: 12/25/16 21:13 Dose: 1 spray Valsartan (Diovan -) 40 mg PO DAILY [facility] Last Admin: 12/25/16 09:56 Dose: 40 mg - Objective Vital Signs: Vital Signs Temperature 97.7 F 12/26/16 06:00 Pulse Rate 80 12/26/16 06:00 Respiratory Rate 20 12/26/16 06:00 Blood Pressure 109/44 12/26/16 06:00 O2 Sat by Pulse Oximetry (%) 95 12/25/16 21:00 Constitutional: Yes: Calm HENT: Yes: Other (NOSE PACKING) Neck: Yes: WNL Cardiovascular: Yes: WNL Respiratory: Yes: WNL Gastrointestinal: Yes: WNL Edema: No Labs: INR, PTT INR 1.73 (0.82-1.09) H D 12/18/16 05:05 Problem List - Problems (1) Acute on chronic respiratory failure with hypoxemia Code(s): J96.21 - ACUTE AND CHRONIC RESPIRATORY FAILURE WITH HYPOXIA (2) Anterior epistaxis Code(s): R04.0 - EPISTAXIS (3) Afib Code(s): I48.91 - UNSPECIFIED ATRIAL FIBRILLATION Qualifiers: Atrial fibrillation type: permanent Qualified Code(s): I48.2 - Chronic atrial fibrillation (4) CHF (congestive heart failure) Code(s): I50.9 - HEART FAILURE, UNSPECIFIED Qualifiers: Congestive heart failure type: diastolic Congestive heart failure chronicity: acute on chronic Qualified Code(s): I50.33 - Acute on chronic diastolic (congestive) heart failure (5) COPD (chronic obstructive pulmonary disease) Code(s): J44.9 - CHRONIC OBSTRUCTIVE PULMONARY DISEASE, UNSPECIFIED Qualifiers : COPD type: unspecified COPD Qualified Code(s): J44.9 - Chronic obstructive pulmonary disease, unspecified Assessment/Plan (1) Anterior epistaxis Assessment/Plan: right nasal rhinorocket in place salnie spray to it twice a day amoxicclin 250mg po bid for 5 days FU with ENT on tuesday in office (or hospital?) to remove rhinorocket Code(s): R04.0 - EPISTAXIS (2) Acute on chronic respiratory failure with hypoxemia Assessment/Plan: humdiifed oxygen to prevent nose bleed again and saline nasal sprays steroid abx (3) Afib Assessment/Plan: on AC-xarelto on hold for nose bleed rate control CARDIO FU with regards to anticoagulation- dcplanning dependant on that Code(s): I48.91 - UNSPECIFIED ATRIAL FIBRILLATION Qualifiers: Atrial fibrillation type: permanent Qualified Code(s): I48.2 - Chronic atrial fibrillation (4) CHF (congestive heart failure) Assessment/Plan: diovan and lasix BB Qualifiers: Congestive heart failure type: diastolic Congestive heart failure chronicity: acute on chronic Qualified Code(s): I50.33 - Acute on chronic diastolic (congestive) heart failure (5) Hypothyroid Assessment/Plan: synthroid tsh WNL Code(s): E03.9 - HYPOTHYROIDISM, UNSPECIFIED Qualifiers: Hypothyroidism type: unspecified Qualified Code(s): E03.9 - Hypothyroidism, unspecified Assessment/Plan daughter has patient set up for assisted living on tuesday -> window caser consulted for dc plan disharge plan pending Cardio FU regaridng AC -> to restart s/p nose packing removed? planned nose packing removal by ent tuesday -> in hospital or in ent clinic? PA[employer]OR CERV[employer]ES
[2016-12-26 08:56] LABS: BASOPHIL 0.1 % (0-2.0); EOSINOPHIL 0.1 % (0-4.5); MCH 30.4 pg (25.7-33.7); MCHC 33.5 g/dl (32.0-36.0); MEAN CELL VOLUME 90.6 fl (80-96); MEAN PLT VOLUME 8.2 fl (7.5-11.1); NEUTROPHILS 87.5 % (42.8-82.8); PLATELET COUNT 280 K/MM3 (134-434); RDW 15.8 % (11.6-15.6)
[2016-12-26 09:03] LABS: ALBUMIN 2.5 g/dl (3.4-5.0); ALK PHOS 67 U/L (45-117); ANION GAP 9 (8-16); BILIRUBIN,TOTAL 0.9 mg/dL (0.2-1.0); CALCIUM 8.6 mg/dL (8.5-10.1); CO2 37 mmol/L (21-32); CREATININE 0.8 mg/dL (0.55-1.02); GLUCOSE,RANDOM 160 mg/dL (74-106); SGOT/AST 13 U/L (15-37); SGPT/ALT 28 U/L (12-78); TOT PROT 5.4 g/dl (6.4-8.2)
[2016-12-26] MEDS: RANITIDINE HCL 150 MG TABLET (FP) PO SCH ×2 (09:53→22:03)
[2016-12-26] MEDS: FUROSEMIDE 40 MG TABLET (FP) PO SCH (09:53)
[2016-12-26] MEDS: predniSONE 10 MG TABLET (UD) PO SCH ×2 (09:53→22:02)
[2016-12-26] MEDS: AMOXICILLIN 250 MG CAPSULE PO SCH ×2 (09:53→22:02)
[2016-12-26] MEDS: VALSARTAN 40 MG TABLET (FP) PO SCH (09:54)
[2016-12-26] MEDS: SODIUM CHLORIDE NASAL SPRAY 44 ML BOTTLE NS SCH ×2 (09:55→22:03)
[2016-12-26] MEDS: METOPROLOL TARTRATE 50 MG TABLET (FP) PO SCH ×2 (09:55→22:03)
[2016-12-26] MEDS: ARFORMOTEROL TARTRATE 15 MCG/2 ML VIAL NEB SCH ×2 (10:20→22:40)
--- NOTE | 2016-12-26 13:54 | PN ---
Progress Note, Physician History of Present Illness: Epistaxis resolved with right nare packed. - Current Medication List Current Medications: Active Medications Amoxicillin (Amoxicillin -) 250 mg PO BID [facility] Stop: 12/29/16 10:44 Last Admin: 12/26/16 09:53 Dose: 250 mg Arformoterol Tartrate (Brovana (Restricted To Pulmonology/Resp) -) 1 amp NEB BID [facility] Last Admin: 12/26/16 10:20 Dose: 1 amp Furosemide (Lasix -) 40 mg PO DAILY [facility] Last Admin: 12/26/16 09:53 Dose: 40 mg Levothyroxine Sodium (Synthroid -) 50 mcg PO AM [facility] Last Admin: 12/26/16 06:20 Dose: 50 mcg Metoprolol Tartrate (Lopressor -) 75 mg PO BID [facility] Last Admin: 12/26/16 09:55 Dose: Not Given Nystatin (Nystatin Oral Suspension -) 500,000 units PO Q6HPO [facility] Last Admin: 12/26/16 11:40 Dose: 500,000 units Prednisone (Deltasone -) 30 mg PO BID [facility] Last Admin: 12/26/16 09:53 Dose: 30 mg Ranitidine HCl (Zantac -) 150 mg PO BID [facility] Last Admin: 12/26/16 09:53 Dose: 150 mg Sodium Chloride ([place] Nasal [place] -) 2 spray NS TID [facility] Last Admin: 12/24/16 06:43 Dose: 2 sprays Sodium Chloride ([place] -) 1 spray NS BID [facility] Last Admin: 12/26/16 09:55 Dose: 1 spray Valsartan (Diovan -) 40 mg PO DAILY [facility] Last Admin: 12/26/16 09:54 Dose: Not Given - Objective Vital Signs: Vital Signs Temperature 98.6 F 12/26/16 10:00 Pulse Rate 81 12/26/16 11:51 Respiratory Rate 18 12/26/16 10:00 Blood Pressure 100/58 12/26/16 10:00 O2 Sat by Pulse Oximetry (%) 97 12/26/16 11:51 Constitutional: Yes: No Distress, Calm HENT: Yes: Epistaxis (Right nare packed) Neck: Yes: Supple Cardiovascular: Yes: Pulse Irregular Respiratory: Yes: Regular, Diminished Gastrointestinal: Yes: Normal Bowel Sounds, Soft Edema: No Labs: CBC, BMP 12/26/16 07:45 04/09/17 07:45 INR, PTT INR 1.73 (0.82-1.09) H D 12/18/16 05:05 Problem List - Problems (1) Acute on chronic respiratory failure with hypoxemia Code(s): J96.21 - ACUTE AND CHRONIC RESPIRATORY FAILURE WITH HYPOXIA (2) Interstitial lung disease Code(s): J84.9 - INTERSTITIAL PULMONARY DISEASE, UNSPECIFIED (3) Shortness of breath Code(s): R06.02 - SHORTNESS OF BREATH (4) Afib Code(s): I48.91 - UNSPECIFIED ATRIAL FIBRILLATION Qualifiers: Atrial fibrillation type: permanent Qualified Code(s): I48.2 - Chronic atrial fibrillation (5) COPD (chronic obstructive pulmonary disease) Code(s): J44.9 - CHRONIC OBSTRUCTIVE PULMONARY DISEASE, UNSPECIFIED Qualifiers : COPD type: unspecified COPD Qualified Code(s): J44.9 - Chronic obstructive pulmonary disease, unspecified (6) HLD (hyperlipidemia) Code(s): E78.5 - HYPERLIPIDEMIA, UNSPECIFIED Qualifiers: Hyperlipidemia type: pure hypercholesterolemia Qualified Code(s): E78.00 - Pure hypercholesterolemia, unspecified; E78.0 - Pure hypercholesterolemia (7) HTN (hypertension) Code(s): I10 - ESSENTIAL (PRIMARY) HYPERTENSION Qualifiers: Hypertension type: essential hypertension Qualified Code(s): I10 - Essential (primary) hypertension (8) Hypothyroid Code(s): E03.9 - HYPOTHYROIDISM, UNSPECIFIED Qualifiers: Hypothyroidism type: unspecified Qualified Code(s): E03.9 - Hypothyroidism, unspecified (9) Pulmonary fibrosis Code(s): J84.10 - PULMONARY FIBROSIS, UNSPECIFIED (10) Anterior epistaxis Code(s): R04.0 - EPISTAXIS Assessment/Plan Echocardiography performed 11/05 revealed normal LV size and function, LA dilatation, mild MR and moderate TR with RVSP of 30-40 mmHg 1. 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 Acute on chronic class I-II NYHA classification LV diastolic failure, resolving 3. CAD angina pectoris 4. Permanent/persistent atrial fibrillation [id number] score of 6 on NOAC's 5. HTN 6. Hypercholesterolemia 7. Hypothyroidism 8. CKD 9. Anterior epistaxis post right nare packing PLAN: 1. Continue Lopressor 75 bid hemodynamics permitting 2. Continue Diovan 40 qd with close monitoring of renal function 3. Hold Xarelto 20 qd pending resolution of epistaxis, saline spray, ENT input appreciated, for packing removal Tuesday 4. Continue Lasix 40 qd, monitor renal function and electrolytes closely 5. Continue steroids with GI protection and bronchodilators as per primary team 6. Continue antibiotics for sinusitis prophylaxis
[2016-12-26] MEDS ORDERED: PT OWN MED DRAWER 7, Y5N ONE (21:28)
[2016-12-27] MEDS: NYSTATIN 500,000 UNITS/5 ML SUSPENSION PO SCH ×4 (02:12→17:51)
--- NOTE | 2016-12-27 06:18 | PN ---
Progress Note, Physician - Current Medication List Current Medications: Active Medications Amoxicillin (Amoxicillin -) 250 mg PO BID [facility] Stop: 12/29/16 10:44 Last Admin: 12/26/16 22:02 Dose: 250 mg Arformoterol Tartrate (Brovana (Restricted To Pulmonology/Resp) -) 1 amp NEB BID [facility] Last Admin: 12/26/16 22:40 Dose: 1 amp Furosemide (Lasix -) 40 mg PO DAILY [facility] Last Admin: 12/26/16 09:53 Dose: 40 mg Levothyroxine Sodium (Synthroid -) 50 mcg PO AM [facility] Last Admin: 12/26/16 06:20 Dose: 50 mcg Metoprolol Tartrate (Lopressor -) 75 mg PO BID [facility] Last Admin: 12/26/16 22:03 Dose: Not Given Nystatin (Nystatin Oral Suspension -) 500,000 units PO Q6HPO [facility] Last Admin: 12/27/16 02:12 Dose: 500,000 units Prednisone (Deltasone -) 30 mg PO BID [facility] Last Admin: 12/26/16 22:02 Dose: 30 mg Ranitidine HCl (Zantac -) 150 mg PO BID [facility] Last Admin: 12/26/16 22:03 Dose: 150 mg Sodium Chloride ([place] Nasal [place] -) 2 spray NS TID [facility] Last Admin: 12/24/16 06:43 Dose: 2 sprays Sodium Chloride ([place] Nasal [place] -) 1 spray NS BID [facility] Last Admin: 12/26/16 22:03 Dose: 1 spray Valsartan (Diovan -) 40 mg PO DAILY [facility] Last Admin: 12/26/16 09:54 Dose: Not Given - Objective Vital Signs: Vital Signs Temperature 97.4 F L 12/27/16 02:00 Pulse Rate 99 H 12/27/16 02:00 Respiratory Rate 20 12/27/16 02:00 Blood Pressure 96/60 12/27/16 02:00 O2 Sat by Pulse Oximetry (%) 97 12/26/16 21:00 Labs: CBC, BMP 12/26/16 07:45 12/26/16 07:45 INR, PTT INR 1.73 (0.82-1.09) H D 12/18/16 05:05 Problem List - Problems (1) Acute on chronic respiratory failure with hypoxemia Code(s): J96.21 - ACUTE AND CHRONIC RESPIRATORY FAILURE WITH HYPOXIA (2) Anterior epistaxis Code(s): R04.0 - EPISTAXIS (3) Afib Code(s): I48.91 - UNSPECIFIED ATRIAL FIBRILLATION Qualifiers: Atrial fibrillation type: permanent Qualified Code(s): I48.2 - Chronic atrial fibrillation (4) CHF (congestive heart failure) Code(s): I50.9 - HEART FAILURE, UNSPECIFIED Qualifiers: Congestive heart failure type: diastolic Congestive heart failure chronicity: acute on chronic Qualified Code(s): I50.33 - Acute on chronic diastolic (congestive) heart failure (5) COPD (chronic obstructive pulmonary disease) Code(s): J44.9 - CHRONIC OBSTRUCTIVE PULMONARY DISEASE, UNSPECIFIED Qualifiers : COPD type: unspecified COPD Qualified Code(s): J44.9 - Chronic obstructive pulmonary disease, unspecified Assessment/Plan (1) Anterior epistaxis Assessment/Plan: right nasal rhinorocket in place salnie spray to it twice a day amoxicclin 250mg po bid for 5 days FU with ENT on tuesday in office (or hospital?) to remove rhinorocket Code(s): R04.0 - EPISTAXIS (2) Acute on chronic respiratory failure with hypoxemia Assessment/Plan: humdiifed oxygen to prevent nose bleed again and saline nasal sprays steroid abx (3) Afib Assessment/Plan: on AC-xarelto on hold for nose bleed rate control CARDIO FU with regards to anticoagulation- dcplanning dependant on that Code(s): I48.91 - UNSPECIFIED ATRIAL FIBRILLATION Qualifiers: Atrial fibrillation type: permanent Qualified Code(s): I48.2 - Chronic atrial fibrillation (4) CHF (congestive heart failure) Assessment/Plan: diovan and lasix BB Qualifiers: Congestive heart failure type: diastolic Congestive heart failure chronicity: acute on chronic Qualified Code(s): I50.33 - Acute on chronic diastolic (congestive) heart failure (5) Hypothyroid Assessment/Plan: synthroid tsh WNL Code(s): E03.9 - HYPOTHYROIDISM, UNSPECIFIED Qualifiers: Hypothyroidism type: unspecified Qualified Code(s): E03.9 - Hypothyroidism, unspecified Assessment/Plan daughter has patient set up for assisted living on tuesday -> child support case officer consulted for dc plan disharge plan pending Cardio FU regaridng AC -> to restart s/p nose packing removed? planned nose packing removal by ent tuesday -> in hospital or in ent clinic? PASTOR CERVANTES
[2016-12-27] MEDS: LEVOTHYROXINE NA 50 MCG TABLET (FP) PO SCH (06:34)
[2016-12-27] MEDS ORDERED: PT OWN MED DRAWER 7, Y5N ONE ×3 (09:10→17:29)
[2016-12-27] MEDS: METOPROLOL TARTRATE 50 MG TABLET (FP) PO SCH ×2 (09:13→21:57)
[2016-12-27] MEDS: predniSONE 10 MG TABLET (UD) PO SCH ×2 (09:14→21:57)
[2016-12-27] MEDS: VALSARTAN 40 MG TABLET (FP) PO SCH (09:14)
[2016-12-27] MEDS: FUROSEMIDE 40 MG TABLET (FP) PO SCH (09:14)
[2016-12-27] MEDS: RANITIDINE HCL 150 MG TABLET (FP) PO SCH ×2 (09:14→21:57)
[2016-12-27] MEDS: AMOXICILLIN 250 MG CAPSULE PO SCH ×2 (09:24→21:57)
[2016-12-27] MEDS: SODIUM CHLORIDE NASAL SPRAY 44 ML BOTTLE NS SCH ×2 (09:25→21:57)
--- NOTE | 2016-12-27 09:38 | PN ---
Progress Note, Physician History of Present Illness: Epistaxis resolved with right nare packed. - Current Medication List Current Medications: Active Medications Amoxicillin (Amoxicillin -) 250 mg PO BID [facility] Stop: 12/29/16 10:44 Last Admin: 12/27/16 09:24 Dose: 250 mg Arformoterol Tartrate ([place]rov[place] (Restricted To Pulmonology/Resp) -) 1 amp NEB BID [facility] Last Admin: 12/26/16 22:40 Dose: 1 amp Furosemide (Lasix -) 40 mg PO DAILY [facility] Last Admin: 12/27/16 09:14 Dose: 40 mg Levothyroxine Sodium (Synthroid -) 50 mcg PO AM [facility] Last Admin: 12/27/16 06:34 Dose: 50 mcg Metoprolol Tartrate (Lopressor -) 75 mg PO BID [facility] Last Admin: 12/27/16 09:13 Dose: 75 mg Nystatin (Nystatin Oral Suspension -) 500,000 units PO Q6HPO [facility] Last Admin: 12/27/16 06:34 Dose: 500,000 units Prednisone (Deltasone -) 30 mg PO BID [facility] Last Admin: 12/27/16 09:14 Dose: 30 mg Ranitidine HCl (Zantac -) 150 mg PO BID [facility] Last Admin: 12/27/16 09:14 Dose: 150 mg Sodium Chloride ([place] Nasal [place] -) 2 spray NS TID [facility] Last Admin: 12/24/16 06:43 Dose: 2 sprays Sodium Chloride ([place] Nasal [place] -) 1 spray NS BID [facility] Last Admin: 12/27/16 09:25 Dose: 1 spray Valsartan (Diovan -) 40 mg PO DAILY [facility] Last Admin: 12/27/16 09:14 Dose: 40 mg - Objective Vital Signs: Vital Signs Temperature 97.7 F 12/27/16 06:00 Pulse Rate 98 H 12/27/16 06:00 Respiratory Rate 20 12/27/16 06:00 Blood Pressure 105/61 12/27/16 06:00 O2 Sat by Pulse Oximetry (%) 97 12/26/16 21:00 Constitutional: Yes: No Distress, Calm Neck: Yes: Supple Cardiovascular: Yes: Pulse Irregular Respiratory: Yes: Regular, CTA Bilaterally Gastrointestinal: Yes: Normal Bowel Sounds, Soft Edema: No Labs: CBC, BMP 12/26/16 07:45 12/26/16 07:45 INR, PTT INR 1.73 (0.82-1.09) H D 12/18/16 05:05 Problem List - Problems (1) Acute on chronic respiratory failure with hypoxemia Code(s): J96.21 - ACUTE AND CHRONIC RESPIRATORY FAILURE WITH HYPOXIA (2) Interstitial lung disease Code(s): J84.9 - INTERSTITIAL PULMONARY DISEASE, UNSPECIFIED (3) Shortness of breath Code(s): R06.02 - SHORTNESS OF BREATH (4) Afib Code(s): I48.91 - UNSPECIFIED ATRIAL FIBRILLATION Qualifiers: Atrial fibrillation type: permanent Qualified Code(s): I48.2 - Chronic atrial fibrillation (5) COPD (chronic obstructive pulmonary disease) Code(s): J44.9 - CHRONIC OBSTRUCTIVE PULMONARY DISEASE, UNSPECIFIED Qualifiers : COPD type: unspecified COPD Qualified Code(s): J44.9 - Chronic obstructive pulmonary disease, unspecified (6) HLD (hyperlipidemia) Code(s): E78.5 - HYPERLIPIDEMIA, UNSPECIFIED Qualifiers: Hyperlipidemia type: pure hypercholesterolemia Qualified Code(s): E78.00 - Pure hypercholesterolemia, unspecified; E78.0 - Pure hypercholesterolemia (7) HTN (hypertension) Code(s): I10 - ESSENTIAL (PRIMARY) HYPERTENSION Qualifiers: Hypertension type: essential hypertension Qualified Code(s): I10 - Essential (primary) hypertension (8) Hypothyroid Code(s): E03.9 - HYPOTHYROIDISM, UNSPECIFIED Qualifiers: Hypothyroidism type: unspecified Qualified Code(s): E03.9 - Hypothyroidism, unspecified (9) Pulmonary fibrosis Code(s): J84.10 - PULMONARY FIBROSIS, UNSPECIFIED (10) Anterior epistaxis Code(s): R04.0 - EPISTAXIS Assessment/Plan Echocardiography performed 11/05 revealed normal LV size and function, LA dilatation, mild MR and moderate TR with RVSP of 30-40 mmHg 1. 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 Acute on chronic class I-II NYHA classification LV diastolic failure, resolving 3. CAD angina pectoris 4. Permanent/persistent atrial fibrillation [id number] score of 6 on NOAC's 5. HTN 6. Hypercholesterolemia 7. Hypothyroidism 8. CKD 9. Anterior epistaxis post right nare packing PLAN: 1. Continue Lopressor 75 bid hemodynamics permitting 2. Continue Diovan 40 qd with close monitoring of renal function 3. Hold Xarelto 20 qd pending resolution of epistaxis, saline spray, ENT input appreciated, for packing removal Tuesday, await ENT decision regarding NOAC resumption 4. Continue Lasix 40 qd, monitor renal function and electrolytes closely 5. Continue oral steroids with GI protection and bronchodilators as per primary team 6. Continue antibiotics for sinusitis prophylaxis
[2016-12-27] MEDS: ARFORMOTEROL TARTRATE 15 MCG/2 ML VIAL NEB SCH ×2 (10:30→22:45)
--- NOTE | 2016-12-27 12:26 | PN ---
Progress Note, Physician Chief Complaint: i called ENT to have them come see patient today regarding nasal packing xarelto on hold until seen by ENT on abx for sinusitis prophylaxis - Current Medication List Current Medications: Active Medications Amoxicillin (Amoxicillin -) 250 mg PO BID [facility] Stop: 12/29/16 10:44 Last Admin: 12/27/16 09:24 Dose: 250 mg Arformoterol Tartrate (Brovana (Restricted To Pulmonology/Resp) -) 1 amp NEB BID [facility] Last Admin: 12/26/16 22:40 Dose: 1 amp Furosemide (Lasix -) 40 mg PO DAILY [facility] Last Admin: 12/27/16 09:14 Dose: 40 mg Levothyroxine Sodium (Synthroid -) 50 mcg PO AM [facility] Last Admin: 12/27/16 06:34 Dose: 50 mcg Metoprolol Tartrate (Lopressor -) 75 mg PO BID [facility] Last Admin: 12/27/16 09:13 Dose: 75 mg Nystatin (Nystatin Oral Suspension -) 500,000 units PO Q6HPO [facility] Last Admin: 12/27/16 11:39 Dose: 500,000 units Ranitidine HCl (Zantac -) 150 mg PO BID [facility] Last Admin: 12/27/16 09:14 Dose: 150 mg Sodium Chloride ([place] Nasal [place] -) 2 spray NS TID [facility] Last Admin: 12/24/16 06:43 Dose: 2 sprays Sodium Chloride ([place] Nasal [place] -) 1 spray NS BID [facility] Last Admin: 12/27/16 09:25 Dose: 1 spray Tuberculin PPD (Tubersol Intermediate Strength) 5 tu ID ONCE ONE Stop: 12/27/16 14:01 Valsartan (Diovan -) 40 mg PO DAILY [facility] Last Admin: 12/27/16 09:14 Dose: 40 mg - Objective Vital Signs: Vital Signs Temperature 97.9 F 12/27/16 10:00 Pulse Rate 119 H 12/27/16 10:00 Respiratory Rate 20 12/27/16 10:00 Blood Pressure 104/74 12/27/16 10:00 O2 Sat by Pulse Oximetry (%) 97 12/26/16 21:00 Constitutional: Yes: Calm HENT: Yes: Other (nasal rhinorocket) Cardiovascular: Yes: Pulse Irregular, S1, S2 Respiratory: Yes: CTA Bilaterally Gastrointestinal: Yes: Normal Bowel Sounds, Soft Edema: Yes Edema: LLE: 1+, RLE: 1+ Neurological: Yes: Alert, Oriented Labs: CBC, BMP 12/26/16 07:45 12/26/16 07:45 INR, PTT INR 1.73 (0.82-1.09) H D 12/18/16 05:05 Problem List - Problems (1) Anterior epistaxis Assessment/Plan: right nasal rhinorocket in place needs removal today salnie spray to it twice a day amoxicclin 250mg po bid for 5 day called ENT to come to hospital for FU today ENT to decide when to restart xarelto Code(s): R04.0 - EPISTAXIS (2) Acute on chronic respiratory failure with hypoxemia Assessment/Plan: humdiifed oxygen to prevent nose bleed again and saline nasal sprays iv steroid change to 30mg po bid zithromax on abx completed will stop wbc sec to steroids no fever cultures negative Microbiology 12/18/16 09:00 Nasopharyngeal Swab Influenza Types A,B Antigen (ULISES) - Final 12/18/16 09:00 Nasopharyngeal Swab - Final 12/17/16 11:20 Urine For Antigen Detection Legionella Antigen - Final 12/17/16 11:20 Urine For Antigen Detection Streptococcus pneumoniae Antigen (M - Final 12/17/16 11:20 Urine - Urine Clean Catch Urine Culture - Final NO GROWTH OBTAINED 12/16/16 19:55 Blood - Peripheral Venous Blood Culture - Final NO GROWTH AFTER 5 DAYS INCUBATION 12/16/16 19:00 Blood - Peripheral Venous Blood Culture - Final NO GROWTH AFTER 5 DAYS INCUBATION Code(s): J96.21 - ACUTE AND CHRONIC RESPIRATORY FAILURE WITH HYPOXIA (3) Afib Assessment/Plan: on AC-xarelto on hold for nose bleed rate control ENT to decide when to restart xarelto after he see patient today Code(s): I48.91 - UNSPECIFIED ATRIAL FIBRILLATION Qualifiers: Atrial fibrillation type: permanent Qualified Code(s): I48.2 - Chronic atrial fibrillation (4) CHF (congestive heart failure) Assessment/Plan: diovan and lasix BB Qualifiers: Congestive heart failure type: diastolic Congestive heart failure chronicity: acute on chronic Qualified Code(s): I50.33 - Acute on chronic diastolic (congestive) heart failure (5) Hypothyroid Assessment/Plan: synthroid tsh WNL Code(s): E03.9 - HYPOTHYROIDISM, UNSPECIFIED Qualifiers: Hypothyroidism type: unspecified Qualified Code(s): E03.9 - Hypothyroidism, unspecified Assessment/Plan PPD placed today to go to assisted lvivng on once ENT clears to restart NOAC then will observe for any more nose bleeding earliest dC will be to asisted living
[2016-12-27] MEDS ORDERED: TUBERCULIN PPD 5 TU/0.1ML SYRINGE (IN PATIENT USE ONLY) ID ONE (14:00)
--- NOTE | 2016-12-27 15:36 | PN ---
Progress Note, Physician History of Present Illness: PULMONARY ALERT,FEELING BETTER,LESS DYSPNEIC - Current Medication List Current Medications: Active Medications Amoxicillin (Amoxicillin -) 250 mg PO BID [facility] Stop: 12/29/16 10:44 Last Admin: 12/27/16 09:24 Dose: 250 mg Arformoterol Tartrate (Brovana (Restricted To Pulmonology/Resp) -) 1 amp NEB BID [facility] Last Admin: 12/27/16 10:30 Dose: Not Given Furosemide (Lasix -) 40 mg PO DAILY [facility] Last Admin: 12/27/16 09:14 Dose: 40 mg Levothyroxine Sodium (Synthroid -) 50 mcg PO AM [facility] Last Admin: 12/27/16 06:34 Dose: 50 mcg Metoprolol Tartrate (Lopressor -) 75 mg PO BID [facility] Last Admin: 12/27/16 09:13 Dose: 75 mg Nystatin (Nystatin Oral Suspension -) 500,000 units PO Q6HPO [facility] Last Admin: 12/27/16 11:39 Dose: 500,000 units Prednisone (Deltasone -) 20 mg PO BID [facility] Ranitidine HCl (Zantac -) 150 mg PO BID [facility] Last Admin: 12/27/16 09:14 Dose: 150 mg Sodium Chloride ([place] Nasal [place] -) 2 spray NS TID [facility] Last Admin: 12/24/16 06:43 Dose: 2 sprays Sodium Chloride ([place] Nasal [place] -) 1 spray NS BID [facility] Last Admin: 12/27/16 09:25 Dose: 1 spray Valsartan (Diovan -) 40 mg PO DAILY [facility] Last Admin: 12/27/16 09:14 Dose: 40 mg - Objective Vital Signs: Vital Signs Temperature 98.5 F 12/27/16 14:38 Pulse Rate 90 12/27/16 14:38 Respiratory Rate 17 12/27/16 14:38 Blood Pressure 140/57 12/27/16 14:38 O2 Sat by Pulse Oximetry (%) 97 12/26/16 21:00 Constitutional: Yes: Well Nourished, Calm Eyes: Yes: WNL HENT: Yes: WNL Neck: Yes: WNL Cardiovascular: Yes: Pulse Irregular, S1, S2 Respiratory: Yes: Rales (BILATERAL CRACKLES) Gastrointestinal: Yes: Normal Bowel Sounds, Soft Extremities: Yes: WNL Edema: Yes Labs: Problem List - Problems (1) Shortness of breath Code(s): R06.02 - SHORTNESS OF BREATH (2) Afib Code(s): I48.91 - UNSPECIFIED ATRIAL FIBRILLATION Qualifiers: Atrial fibrillation type: permanent Qualified Code(s): I48.2 - Chronic atrial fibrillation (3) CHF (congestive heart failure) Code(s): I50.9 - HEART FAILURE, UNSPECIFIED Qualifiers: Congestive heart failure type: diastolic Congestive heart failure chronicity: acute on chronic Qualified Code(s): I50.33 - Acute on chronic diastolic (congestive) heart failure (4) COPD (chronic obstructive pulmonary disease) Code(s): J44.9 - CHRONIC OBSTRUCTIVE PULMONARY DISEASE, UNSPECIFIED Qualifiers : COPD type: unspecified COPD Qualified Code(s): J44.9 - Chronic obstructive pulmonary disease, unspecified (5) HLD (hyperlipidemia) Code(s): E78.5 - HYPERLIPIDEMIA, UNSPECIFIED Qualifiers: Hyperlipidemia type: pure hypercholesterolemia Qualified Code(s): E78.00 - Pure hypercholesterolemia, unspecified; E78.0 - Pure hypercholesterolemia (6) HTN (hypertension) Code(s): I10 - ESSENTIAL (PRIMARY) HYPERTENSION Qualifiers: Hypertension type: essential hypertension Qualified Code(s): I10 - Essential (primary) hypertension (7) Hypothyroid Code(s): E03.9 - HYPOTHYROIDISM, UNSPECIFIED Qualifiers: Hypothyroidism type: unspecified Qualified Code(s): E03.9 - Hypothyroidism, unspecified (8) Rapid atrial fibrillation Code(s): I48.91 - UNSPECIFIED ATRIAL FIBRILLATION (9) Acute on chronic respiratory failure with hypoxemia Code(s): J96.21 - ACUTE AND CHRONIC RESPIRATORY FAILURE WITH HYPOXIA (10) Interstitial lung disease Code(s): J84.9 - INTERSTITIAL PULMONARY DISEASE, UNSPECIFIED Assessment/Plan ASSESSMENT AND PLAN: Acute on Chronic Hypoxemic Respiratory Failure clinically improved Interstitial Lung Disease Acute on Chronic LV Diastolic Heart Failure improved Atrial Fibrillation with RVR stable HTN Hypercholesterolemia Hypothyroidism - lasix - monitor urine output, creatinine - O2 to keep SPo2 >90% - continue anticoagulation - prednisone - inhaled bronchodilators DR RAZO
--- NOTE | 2016-12-27 19:52 | PN ---
Progress Note (short form) - Note Progress Note: ENT hx reviewed, pt examined had significant epistaxis, treated with right nasal packing with control had been on Xarelto presently stabilizing medically per staff discharge anticipated Tuesday 4-12 PE NAD awake, alert, calm eyes WNL nose: right nasal pack in place, dry mouth, throat no bleeding, tonsils absent voice clear and strong Hgb, hct stable INR 1.73 (was 3.58 prior) Impression acute epistaxis right, resolved right nasal packing in place x 3 days on Xarelto for atrial fibrillation Recommend: will return in AM to remove packing Ranjeet Gaspar MD 7:51 pm
[2016-12-28] MEDS: NYSTATIN 500,000 UNITS/5 ML SUSPENSION PO SCH ×5 (00:07→23:07)
[2016-12-28] MEDS: LEVOTHYROXINE NA 50 MCG TABLET (FP) PO SCH (06:36)
[2016-12-28 07:42] LABS: MCH 29.9 pg (25.7-33.7); MCHC 32.9 g/dl (32.0-36.0); MEAN CELL VOLUME 90.9 fl (80-96); MEAN PLT VOLUME 8.4 fl (7.5-11.1); PLATELET COUNT 312 K/MM3 (134-434); RDW 15.3 % (11.6-15.6); WHITE BLOOD COUNT 21.7 K/mm3 (4.0-10.0)
[2016-12-28 09:14] LABS: HYPOCHROMIA 1+; PLATELET ESTIMATE ADEQUATE (NORMAL)
[2016-12-28] MEDS: AMOXICILLIN 250 MG CAPSULE PO SCH ×2 (09:24→21:45)
[2016-12-28] MEDS: predniSONE 10 MG TABLET (UD) PO SCH ×2 (09:24→21:45)
[2016-12-28] MEDS: VALSARTAN 40 MG TABLET (FP) PO SCH (09:25)
[2016-12-28] MEDS: FUROSEMIDE 40 MG TABLET (FP) PO SCH (09:25)
--- NOTE | 2016-12-28 09:32 | PN ---
Progress Note, Physician History of Present Illness: Epistaxis resolved with right nare packed. - Current Medication List Current Medications: Active Medications Amoxicillin (Amoxicillin -) 250 mg PO BID [facility] Stop: 12/29/16 10:44 Last Admin: 12/27/16 21:57 Dose: 250 mg Arformoterol Tartrate (Brovana (Restricted To Pulmonology/Resp) -) 1 amp NEB BID [facility] Last Admin: 12/27/16 22:45 Dose: 1 amp Furosemide (Lasix -) 40 mg PO DAILY [facility] Last Admin: 12/27/16 09:14 Dose: 40 mg Levothyroxine Sodium (Synthroid -) 50 mcg PO AM [facility] Last Admin: 12/28/16 06:36 Dose: 50 mcg Metoprolol Tartrate (Lopressor -) 75 mg PO BID [facility] Last Admin: 12/27/16 21:57 Dose: Not Given Nystatin (Nystatin Oral Suspension -) 500,000 units PO Q6HPO [facility] Last Admin: 12/28/16 06:36 Dose: 500,000 units Prednisone (Deltasone -) 20 mg PO BID [facility] Last Admin: 12/27/16 21:57 Dose: 20 mg Ranitidine HCl (Zantac -) 150 mg PO BID [facility] Last Admin: 12/27/16 21:57 Dose: 150 mg Sodium Chloride ([place] Nasal [place] -) 2 spray NS TID [facility] Last Admin: 12/24/16 06:43 Dose: 2 sprays Sodium Chloride ([place] Nasal [place] -) 1 spray NS BID [facility] Last Admin: 12/27/16 21:57 Dose: 1 spray Valsartan (Diovan -) 40 mg PO DAILY [facility] Last Admin: 12/27/16 09:14 Dose: 40 mg - Objective Vital Signs: Vital Signs Temperature 97.9 F 12/28/16 06:00 Pulse Rate 103 H 12/28/16 06:00 Respiratory Rate 20 12/28/16 06:00 Blood Pressure 96/64 12/28/16 06:00 O2 Sat by Pulse Oximetry (%) 96 12/27/16 22:00 Constitutional: Yes: No Distress, Calm HENT: Yes: Other (Right nasal packing in situ) Neck: Yes: Supple Cardiovascular: Yes: Pulse Irregular Respiratory: Yes: Regular, Diminished Gastrointestinal: Yes: Normal Bowel Sounds, Soft Edema: Yes Edema: LLE: Trace, RLE: Trace Labs: CBC, BMP 12/28/16 06:35 12/26/16 07:45 INR, PTT INR 1.73 (0.82-1.09) H D 12/18/16 05:05 Problem List - Problems (1) Acute on chronic respiratory failure with hypoxemia Code(s): J96.21 - ACUTE AND CHRONIC RESPIRATORY FAILURE WITH HYPOXIA (2) Interstitial lung disease Code(s): J84.9 - INTERSTITIAL PULMONARY DISEASE, UNSPECIFIED (3) Shortness of breath Code(s): R06.02 - SHORTNESS OF BREATH (4) Afib Code(s): I48.91 - UNSPECIFIED ATRIAL FIBRILLATION Qualifiers: Atrial fibrillation type: permanent Qualified Code(s): I48.2 - Chronic atrial fibrillation (5) COPD (chronic obstructive pulmonary disease) Code(s): J44.9 - CHRONIC OBSTRUCTIVE PULMONARY DISEASE, UNSPECIFIED Qualifiers : COPD type: unspecified COPD Qualified Code(s): J44.9 - Chronic obstructive pulmonary disease, unspecified (6) HLD (hyperlipidemia) Code(s): E78.5 - HYPERLIPIDEMIA, UNSPECIFIED Qualifiers: Hyperlipidemia type: pure hypercholesterolemia Qualified Code(s): E78.00 - Pure hypercholesterolemia, unspecified; E78.0 - Pure hypercholesterolemia (7) HTN (hypertension) Code(s): I10 - ESSENTIAL (PRIMARY) HYPERTENSION Qualifiers: Hypertension type: essential hypertension Qualified Code(s): I10 - Essential (primary) hypertension (8) Hypothyroid Code(s): E03.9 - HYPOTHYROIDISM, UNSPECIFIED Qualifiers: Hypothyroidism type: unspecified Qualified Code(s): E03.9 - Hypothyroidism, unspecified (9) Pulmonary fibrosis Code(s): J84.10 - PULMONARY FIBROSIS, UNSPECIFIED (10) Anterior epistaxis Code(s): R04.0 - EPISTAXIS Assessment/Plan Echocardiography performed 11/05 revealed normal LV size and function, LA dilatation, mild MR and moderate TR with RVSP of 30-40 mmHg 1. 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 Acute on chronic class I-II NYHA classification LV diastolic failure, resolving 3. CAD angina pectoris 4. Permanent/persistent atrial fibrillation [id number] score of 6 on NOAC's 5. HTN 6. Hypercholesterolemia 7. Hypothyroidism 8. CKD 9. Anterior epistaxis post right nasal packing with control PLAN: 1. Continue Lopressor 75 bid hemodynamics permitting 2. Continue Diovan 40 qd with close monitoring of renal function 3. Hold Xarelto 20 qd pending resolution of epistaxis, saline spray, ENT input appreciated, for packing removal today, await ENT decision regarding NOAC resumption 4. Continue Lasix 40 qd, monitor renal function and electrolytes closely 5. Continue oral steroids with GI protection and bronchodilators as per primary team 6. Continue antibiotics for sinusitis prophylaxis
[2016-12-28] MEDS: SODIUM CHLORIDE NASAL SPRAY 44 ML BOTTLE NS SCH ×2 (09:36→21:44)
[2016-12-28] MEDS: RANITIDINE HCL 150 MG TABLET (FP) PO SCH ×2 (09:59→21:45)
[2016-12-28] MEDS ORDERED: PT OWN MED DRAWER 7, Y5N ONE (10:11)
[2016-12-28] MEDS: METOPROLOL TARTRATE 50 MG TABLET (FP) PO SCH ×2 (10:35→22:40)
[2016-12-28] MEDS: ARFORMOTEROL TARTRATE 15 MCG/2 ML VIAL NEB SCH ×2 (10:36→22:30)
--- NOTE | 2016-12-28 11:18 | PN ---
Progress Note, Physician Chief Complaint: right nasal packing no fever - Current Medication List Current Medications: Active Medications Amoxicillin (Amoxicillin -) 250 mg PO BID [facility] Stop: 12/29/16 10:44 Last Admin: 12/28/16 09:24 Dose: 250 mg Arformoterol Tartrate (Brovana (Restricted To Pulmonology/Resp) -) 1 amp NEB BID [facility] Last Admin: 12/27/16 22:45 Dose: 1 amp Furosemide (Lasix -) 40 mg PO DAILY [facility] Last Admin: 12/28/16 09:25 Dose: 40 mg Furosemide (Lasix Injection -) 40 mg IVPUSH ONCE ONE Stop: 12/28/16 11:16 Levothyroxine Sodium (Synthroid -) 50 mcg PO AM [facility] Last Admin: 12/28/16 06:36 Dose: 50 mcg Metoprolol Tartrate (Lopressor -) 75 mg PO BID [facility] Last Admin: 12/28/16 10:35 Dose: Not Given Nystatin (Nystatin Oral Suspension -) 500,000 units PO Q6HPO [facility] Last Admin: 12/28/16 06:36 Dose: 500,000 units Prednisone (Deltasone -) 10 mg PO BID [facility] Ranitidine HCl (Zantac -) 150 mg PO BID [facility] Last Admin: 12/28/16 09:59 Dose: 150 mg Sodium Chloride ([place] Nasal [place] -) 2 spray NS TID [facility] Last Admin: 12/24/16 06:43 Dose: 2 sprays Sodium Chloride ([place] Nasal [place] -) 1 spray NS BID [facility] Last Admin: 12/28/16 09:36 Dose: 1 spray Valsartan (Diovan -) 40 mg PO DAILY [facility] Last Admin: 12/28/16 09:25 Dose: 40 mg - Objective Vital Signs: Vital Signs Temperature 97.2 F L 12/28/16 10:00 Pulse Rate 102 H 12/28/16 10:00 Respiratory Rate 20 12/28/16 10:00 Blood Pressure 96/55 12/28/16 10:00 O2 Sat by Pulse Oximetry (%) 96 12/27/16 22:00 Constitutional: Yes: Calm HENT: Yes: Other (nasal packing) Neck: Yes: Trachea Midline Cardiovascular: Yes: Pulse Irregular, S1, S2 Respiratory: Yes: CTA Bilaterally, Diminished (on bases) Gastrointestinal: Yes: Normal Bowel Sounds, Soft Edema: Yes (increased today) Edema: LLE: 1+, RLE: 1+ Neurological: Yes: Alert, Oriented (SAMISH) Labs: CBC, BMP 12/28/16 06:35 12/26/16 07:45 INR, PTT INR 1.73 (0.82-1.09) H D 12/18/16 05:05 Problem List - Problems (1) Anterior epistaxis Assessment/Plan: right nasal rhinorocket in place needs removal today salnie spray to it twice a day amoxicclin 250mg po bid for 5 day ENT to come today to remove it and decide about restarting xarelto Code(s): R04.0 - EPISTAXIS (2) Acute on chronic respiratory failure with hypoxemia Assessment/Plan: humdiifed oxygen to prevent nose bleed again and saline nasal sprays iv steroid change to 30mg po bid zithromax on abx completed will stop wbc sec to steroids no fever cultures negative Microbiology 12/18/16 09:00 Nasopharyngeal Swab Influenza Types A,B Antigen (ULISES) - Final 12/18/16 09:00 Nasopharyngeal Swab - Final 12/17/16 11:20 Urine For Antigen Detection Legionella Antigen - Final 12/17/16 11:20 Urine For Antigen Detection Streptococcus pneumoniae Antigen (M - Final 12/17/16 11:20 Urine - Urine Clean Catch Urine Culture - Final NO GROWTH OBTAINED 12/16/16 19:55 Blood - Peripheral Venous Blood Culture - Final NO GROWTH AFTER 5 DAYS INCUBATION 12/16/16 19:00 Blood - Peripheral Venous Blood Culture - Final NO GROWTH AFTER 5 DAYS INCUBATION Code(s): J96.21 - ACUTE AND CHRONIC RESPIRATORY FAILURE WITH HYPOXIA (3) Afib Assessment/Plan: on AC-xarelto on hold for nose bleed rate control ENT to decide when to restart xarelto after he see patient today Code(s): I48.91 - UNSPECIFIED ATRIAL FIBRILLATION Qualifiers: Atrial fibrillation type: permanent Qualified Code(s): I48.2 - Chronic atrial fibrillation (4) CHF (congestive heart failure) Assessment/Plan: diovan and lasix BB iv lasix one dose today with dopller of legs Qualifiers: Congestive heart failure type: diastolic Congestive heart failure chronicity: acute on chronic Qualified Code(s): I50.33 - Acute on chronic diastolic (congestive) heart failure (5) Hypothyroid Assessment/Plan: synthroid tsh WNL Code(s): E03.9 - HYPOTHYROIDISM, UNSPECIFIED Qualifiers: Hypothyroidism type: unspecified Qualified Code(s): E03.9 - Hypothyroidism, unspecified Assessment/Plan PPD placed yesterday to be read tmw to go to assisted lvivng on once ENT clears to restart NOAC then will observe for any more nose bleeding earliest [facility]
[2016-12-28] MEDS ORDERED: FUROSEMIDE 40 MG/4 ML INJECTABLE VIAL IVPUSH ONE (11:25)
--- NOTE | 2016-12-28 11:59 | PN ---
Progress Note (short form) - Note Progress Note: spoke to dr Paul he will see patient today in afternoon and nanci decide about restarting xarelto tpaer prednisone repepat cbc bmp in am, doppler of legs and lasix iv d/w son Problem List - Problems (1) Anterior epistaxis Code(s): R04.0 - EPISTAXIS (2) Acute on chronic respiratory failure with hypoxemia Code(s): J96.21 - ACUTE AND CHRONIC RESPIRATORY FAILURE WITH HYPOXIA (3) Afib Code(s): I48.91 - UNSPECIFIED ATRIAL FIBRILLATION Qualifiers: Atrial fibrillation type: permanent Qualified Code(s): I48.2 - Chronic atrial fibrillation (4) CHF (congestive heart failure) Qualifiers: Congestive heart failure type: diastolic Congestive heart failure chronicity: acute on chronic Qualified Code(s): I50.33 - Acute on chronic diastolic (congestive) heart failure (5) Hypothyroid Code(s): E03.9 - HYPOTHYROIDISM, UNSPECIFIED Qualifiers: Hypothyroidism type: unspecified Qualified Code(s): E03.9 - Hypothyroidism, unspecified
--- NOTE | 2016-12-28 13:12 | PN ---
Progress Note (short form) - Note Progress Note: ENT no further bleeding PE NAD left nasal cavity dry right nose packed, no bleeding oral cavity/oropharynx clear, no blood Impression epistaxis, resolved hx anticoagulation for atrial fibrillation recommend: packing removed, no bleeding deviated septum with posterior spur noted, dry blood there but no active bleeding right nasal airway patent, thick mucus continue nasal saline spray bid if no further bleeding this afternoon then ok to restart Xarelto tonight Ranjeet Gaspar MD
--- NOTE | 2016-12-28 14:13 | PN ---
Progress Note, Physician History of Present Illness: PULMONARY ALERT,COMFORTABLE,NAD,-SOB AT REST - Current Medication List Current Medications: Active Medications Amoxicillin (Amoxicillin -) 250 mg PO BID [facility] Stop: 12/29/16 10:44 Last Admin: 12/28/16 09:24 Dose: 250 mg Arformoterol Tartrate ([place]rov[place] (Restricted To Pulmonology/Resp) -) 1 amp NEB BID [facility] Last Admin: 12/27/16 22:45 Dose: 1 amp Furosemide (Lasix -) 40 mg PO DAILY [facility] Last Admin: 12/28/16 09:25 Dose: 40 mg Levothyroxine Sodium (Synthroid -) 50 mcg PO AM [facility] Last Admin: 12/28/16 06:36 Dose: 50 mcg Metoprolol Tartrate (Lopressor -) 75 mg PO BID [facility] Last Admin: 12/28/16 10:35 Dose: Not Given Nystatin (Nystatin Oral Suspension -) 500,000 units PO Q6HPO [facility] Last Admin: 12/28/16 06:36 Dose: 500,000 units Prednisone (Deltasone -) 10 mg PO BID [facility] Ranitidine HCl (Zantac -) 150 mg PO BID [facility] Last Admin: 12/28/16 09:59 Dose: 150 mg Sodium Chloride ([place] Nasal [place] -) 2 spray NS TID [facility] Last Admin: 12/24/16 06:43 Dose: 2 sprays Sodium Chloride ([place] Nasal [place] -) 1 spray NS BID [facility] Last Admin: 12/28/16 09:36 Dose: 1 spray Valsartan (Diovan -) 40 mg PO DAILY [facility] Last Admin: 12/28/16 09:25 Dose: 40 mg - Objective Vital Signs: Vital Signs Temperature 97.2 F L 12/28/16 10:00 Pulse Rate 102 H 12/28/16 10:00 Respiratory Rate 20 12/28/16 10:00 Blood Pressure 96/55 12/28/16 10:00 O2 Sat by Pulse Oximetry (%) 95 12/28/16 09:00 Constitutional: Yes: Well Nourished, Calm Eyes: Yes: WNL HENT: Yes: WNL Neck: Yes: WNL Cardiovascular: Yes: Pulse Irregular, S1, S2 Respiratory: Yes: Rales (BILATERAL CRACKLES) Gastrointestinal: Yes: Normal Bowel Sounds, Soft Extremities: Yes: WNL Edema: No Labs: CBC, BMP 12/28/16 06:35 12/26/16 07:45 INR, PTT INR 1.73 (0.82-1.09) H D 12/18/16 05:05 Problem List - Problems (1) Shortness of breath Code(s): R06.02 - SHORTNESS OF BREATH (2) Afib Code(s): I48.91 - UNSPECIFIED ATRIAL FIBRILLATION Qualifiers: Atrial fibrillation type: permanent Qualified Code(s): I48.2 - Chronic atrial fibrillation (3) CHF (congestive heart failure) Code(s): I50.9 - HEART FAILURE, UNSPECIFIED Qualifiers: Congestive heart failure type: diastolic Congestive heart failure chronicity: acute on chronic Qualified Code(s): I50.33 - Acute on chronic diastolic (congestive) heart failure (4) COPD (chronic obstructive pulmonary disease) Code(s): J44.9 - CHRONIC OBSTRUCTIVE PULMONARY DISEASE, UNSPECIFIED Qualifiers : COPD type: unspecified COPD Qualified Code(s): J44.9 - Chronic obstructive pulmonary disease, unspecified (5) HLD (hyperlipidemia) Code(s): E78.5 - HYPERLIPIDEMIA, UNSPECIFIED Qualifiers: Hyperlipidemia type: pure hypercholesterolemia Qualified Code(s): E78.00 - Pure hypercholesterolemia, unspecified; E78.0 - Pure hypercholesterolemia (6) HTN (hypertension) Code(s): I10 - ESSENTIAL (PRIMARY) HYPERTENSION Qualifiers: Hypertension type: essential hypertension Qualified Code(s): I10 - Essential (primary) hypertension (7) Hypothyroid Code(s): E03.9 - HYPOTHYROIDISM, UNSPECIFIED Qualifiers: Hypothyroidism type: unspecified Qualified Code(s): E03.9 - Hypothyroidism, unspecified (8) Rapid atrial fibrillation Code(s): I48.91 - UNSPECIFIED ATRIAL FIBRILLATION (9) Acute on chronic respiratory failure with hypoxemia Code(s): J96.21 - ACUTE AND CHRONIC RESPIRATORY FAILURE WITH HYPOXIA (10) Interstitial lung disease Code(s): J84.9 - INTERSTITIAL PULMONARY DISEASE, UNSPECIFIED Assessment/Plan ASSESSMENT AND PLAN: Acute on Chronic Hypoxemic Respiratory Failure clinically improved Interstitial Lung Disease Acute on Chronic LV Diastolic Heart Failure improved Atrial Fibrillation with RVR stable HTN Hypercholesterolemia Hypothyroidism Epistaxis respoved - lasix - monitor urine output, creatinine - O2 to keep SPo2 >90% - anticoagulation as per ent - prednisone - inhaled bronchodilators DR RAZO
--- NOTE | 2016-12-28 14:16 | PN ---
Progress Note (short form) - Note Progress Note: to start xarelto tonight monitor for bleeding and can go to assisted living facility in AM Problem List - Problems (1) Anterior epistaxis Code(s): R04.0 - EPISTAXIS (2) Acute on chronic respiratory failure with hypoxemia Code(s): J96.21 - ACUTE AND CHRONIC RESPIRATORY FAILURE WITH HYPOXIA (3) Afib Code(s): I48.91 - UNSPECIFIED ATRIAL FIBRILLATION Qualifiers: Atrial fibrillation type: permanent Qualified Code(s): I48.2 - Chronic atrial fibrillation (4) CHF (congestive heart failure) Qualifiers: Congestive heart failure type: diastolic Congestive heart failure chronicity: acute on chronic Qualified Code(s): I50.33 - Acute on chronic diastolic (congestive) heart failure (5) Hypothyroid Code(s): E03.9 - HYPOTHYROIDISM, UNSPECIFIED Qualifiers: Hypothyroidism type: unspecified Qualified Code(s): E03.9 - Hypothyroidism, unspecified
[2016-12-28] MEDS ORDERED: FUROSEMIDE 40 MG TABLET (FP) PO ONE (14:45)
[2016-12-28] MEDS: POLYETHYLENE GLYCOL 3350 119 GM BTL PO SCH (18:11)
[2016-12-28] MEDS: RIVAROXABAN 20 MG TABLET PO SCH (20:23)
[2016-12-29] MEDS: LEVOTHYROXINE NA 50 MCG TABLET (FP) PO SCH (06:42)
[2016-12-29] MEDS: NYSTATIN 500,000 UNITS/5 ML SUSPENSION PO SCH (06:42)
--- NOTE | 2016-12-29 08:24 | DS ---
Physical Examination Vital Signs: Vital Signs Temperature 97.6 F 12/29/16 06:00 Pulse Rate 109 H 12/29/16 06:00 Respiratory Rate 20 12/29/16 06:00 Blood Pressure 106/73 12/29/16 06:00 O2 Sat by Pulse Oximetry (%) 95 12/28/16 21:00 Labs: CBC, BMP 12/28/16 06:35 12/26/16 07:45 Discharge Summary Reason For Visit: CONGESTIVE HEART FAILURE Current Active Problems Acute on chronic respiratory failure with hypoxemia (Acute) Anterior epistaxis (Acute) Interstitial lung disease (Acute) Shortness of breath (Acute) Hospital Course: 86 y/o woman with history of Afib (on Xarelto), HTN, hyperlipidemia, hypothyroidism, CHF, COPD (on home O2), pulmonary fibrosis (on pred 10) and recent PNA who presented to ED with dyspnea. Briefly, pt recently admitted from 11/03-11/08 with pneumonia. She was treated and symptoms resolved and she was d/cd home. Per daughter, over the past 5 days pt has had worsening SOB and a mild non-productive cough. She has had to uptitrate her home O2 from 3 to 4 or 5L. Pt denied fever, chills, chest pain, nausea/ vomiting/ diarrhea or any dysuria. Pt presented to ED on 12/16. - Past Medical History Cardiovascular: Yes: AFIB, HTN, Hyperlipdemia Pulmonary: Yes: COPD, Pulmonary Fibrosis Hepatobiliary: Yes: Cholelithiasis Endocrine: Yes: Hypothyroidism - Past Surgical History Past Surgical History: Yes: Cholecystectomy - Problems (1) Anterior epistaxis Assessment/Plan: DUE TO HEMORRHAGIC DISORDER FROM CURRENT ANTICOAGULATION USE FOR AFIB PT REQU[facility]ES [facility] right nasal rhinorocket in place removal per ent saline spray to it twice a day amoxicillin 250mg po bid for 5 day ENT to come today to remove it and decide about restarting xarelto Code(s): R04.0 - EPISTAXIS (2) Acute on chronic respiratory failure with hypoxemia Assessment/Plan: humidified oxygen to prevent nose bleed again and saline nasal sprays iv steroid change to 30mg po bid Zithromax on abx completed will stop wbc sec to steroids no fever cultures negative Microbiology 12/18/16 09:00 Nasopharyngeal Swab Influenza Types A,B Antigen (ULISES) - Final 12/18/16 09:00 Nasopharyngeal Swab - Final 12/17/16 11:20 Urine For Antigen Detection Legionella Antigen - Final 12/17/16 11:20 Urine For Antigen Detection Streptococcus pneumoniae Antigen (M - Final 12/17/16 11:20 Urine - Urine Clean Catch Urine Culture - Final NO GROWTH OBTAINED 12/16/16 19:55 Blood - Peripheral Venous Blood Culture - Final NO GROWTH AFTER 5 DAYS INCUBATION 12/16/16 19:00 Blood - Peripheral Venous Blood Culture - Final NO GROWTH AFTER 5 DAYS INCUBATION Code(s): J96.21 - ACUTE AND CHRONIC RESPIRATORY FAILURE WITH HYPOXIA (3) Afib Assessment/Plan: on AC-xarelto resumed--monitor for nose bleed rate control ENT to decide when to restart xarelto after he see patient today Code(s): I48.91 - UNSPECIFIED ATRIAL FIBRILLATION Qualifiers: Atrial fibrillation type: permanent Qualified Code(s): I48.2 - Chronic atrial fibrillation (4) CHF (congestive heart failure) Assessment/Plan: gauri and Bro --60 --BB Qualifiers: Congestive heart failure type: diastolic Congestive heart failure chronicity: acute on chronic Qualified Code(s): I50.33 - Acute on chronic diastolic (congestive) heart failure (5) Hypothyroid Assessment/Plan: synthroid tsh WNL Code(s): E03.9 - HYPOTHYROIDISM, UNSPECIFIED Qualifiers: Hypothyroidism type: unspecified Qualified Code(s): E03.9 - Hypothyroidism, unspecified Assessment/Plan PPD plaed to go to assisted living on Tuesday monitor labs as outpatient - Instructions Diet, Activity, Other Instructions: prednsione 10mg po bid and taper per md amoxcillin 250mg po bid for sinusitis propphylaxis saline spray to right nose rhinorocket one spray twice a day for 5 days FU with ENT on tuesday to remove rhinorocket metoprolol 75 mg po bid continuous humidifed oxygen 2 litres BLOOD TEST IN ONE WEEK Referrals: Curt Wing MD [Primary Care Provider] - 1 Week Juan Unger MD [Staff Physician] - Disposition: HOME - Home Medications Comprehensive Discharge Medication List: Ambulatory Orders Arformoterol Tartrate [Brovana -] 1 amp NEB BID amp 12/22/16 Ranitidine [Zantac -] 150 mg PO BID tablet 12/22/16 Rivaroxaban [Xarelto -] 20 mg PO DAILY tablet 12/22/16 Valsartan [Diovan] 40 mg PO DAILY tablet 12/22/16 Sodium Chloride Nasal Fe[place] [[place] Fe[place] Nasal Fe[place] -] 2 spray NS TID #1 spray 12/23/16 Amoxicillin - [Amoxicillin 250mg Capsule -] 250 mg PO BID #14 tab 12/29/16 Furosemide [Lasix -] 60 mg PO DAILY #90 tablet 12/29/16 Levothyroxine [Synthroid -] 50 mcg PO AM tablet 12/29/16 Metoprolol Tartrate [Lopressor -] 75 mg PO BID tablet 12/29/16 Polyethylene Glycol 3350 [Miralax 119 gm Btl -] 17 gm PO DAILY bottle 12/29/16 Prednisone [Deltasone -] 10 mg PO BID #60 tablet 12/29/16 Sodium Chloride Nasal [place] [[place] Nasal [place] -] 1 spray NS BID spray
[2016-12-29 08:56] LABS: MCH 29.3 pg (25.7-33.7); MCHC 32.2 g/dl (32.0-36.0); MEAN CELL VOLUME 90.8 fl (80-96); MEAN PLT VOLUME 8.5 fl (7.5-11.1); PLATELET COUNT 287 K/MM3 (134-434); RDW 16.1 % (11.6-15.6); WHITE BLOOD COUNT 19.9 K/mm3 (4.0-10.0)
[2016-12-29 09:08] LABS: CALCIUM 8.5 mg/dL (8.5-10.1)
[2016-12-29 09:10] LABS: COCKROFT - GAULT 36.89
[2016-12-29] MEDS ORDERED: FUROSEMIDE 40 MG TABLET (FP) PO SCH (10:00)
[2016-12-29] MEDS: ARFORMOTEROL TARTRATE 15 MCG/2 ML VIAL NEB SCH (10:25)
[2016-12-29] MEDS: RANITIDINE HCL 150 MG TABLET (FP) PO SCH (10:33)
[2016-12-29] MEDS: predniSONE 10 MG TABLET (UD) PO SCH (10:33)
[2016-12-29] MEDS: RIVAROXABAN 20 MG TABLET PO SCH (10:33)
[2016-12-29] MEDS: VALSARTAN 40 MG TABLET (FP) PO SCH (10:33)
[2016-12-29] MEDS: METOPROLOL TARTRATE 50 MG TABLET (FP) PO SCH (10:37)
[2016-12-29] MEDS: AMOXICILLIN 250 MG CAPSULE PO SCH (10:38)
[2016-12-29] MEDS: SODIUM CHLORIDE NASAL SPRAY 44 ML BOTTLE NS SCH (10:40)
[2016-12-29] MEDS: POLYETHYLENE GLYCOL 3350 119 GM BTL PO SCH (10:40)
[2016-12-29 11:41] LABS: PLATELET ESTIMATE ADEQUATE (NORMAL)
[2016-12-29 12:16] VITALS: BP 108/68; PULSE 102; TEMP 98.6
== END 2016-12-29 11:56 | disposition home or self-care (01) | DRG 196 ==
LOC: JER 18:14 → JERBED 22:27 → JICU 12-17 01:53 → J4W 12-18 19:17 → J5S 12-21 15:06
PROVIDERS: ADMIT Family Medicine; ATTEND Family Medicine
PROC: 2Y41X5Z Packing of Nasal Region using Packing Material (ICD-10-PCS; principal; 2016-12-23)
DX: J84.10 Pulmonary fibrosis, unspecified (principal); I50.33 Acute on chronic diastolic (congestive) heart failure; J96.21 Acute and chronic respiratory failure with hypoxia; I13.0 Hypertensive heart and chronic kidney disease with heart failure and stage 1 through stage 4 chronic kidney disease, or unspecified chronic kidney disease; B37.0 Candidal stomatitis; J84.9 Interstitial pulmonary disease, unspecified; Z79.01 Long term (current) use of anticoagulants; E78.5 Hyperlipidemia, unspecified; E03.9 Hypothyroidism, unspecified; J44.9 Chronic obstructive pulmonary disease, unspecified; Z99.81 Dependence on supplemental oxygen; I48.2 Chronic atrial fibrillation; N18.9 Chronic kidney disease, unspecified; R04.0 Epistaxis
CPT/HCPCS: 36415; 36600; 71010-TC; 71250-TC; 80048; 80053; 81003; 82375; 82550; 82803; 83050; 83735; 83880; 84443; 84484; 85025; 85027; 85610; 85730; 87040; 87086; 87254; 87804; 87899; 93005; 93010; 93970-TC; 94640; 94660; 97116-GP; 97161-GP; 97164-GP; 99285-25